=== PATIENT | female | born 1970 | race Hispanic/Latino ===

== ENCOUNTER 2022-06-14 21:02 | Emergency (ER) | payer MEDICAID, OTHER ==
[~2022-06-14] VITALS: Ht 162.6 cm; Wt 95.3 kg
[2022-06-14 21:06] VITALS: BP 113/42
[2022-06-14 21:55] LABS: APPEARANCE,URINE CLEAR (CLEAR); BILIRUBIN,URINE NEGATIVE (NEGATIVE); COLOR,URINE YELLOW (YELLOW); GLUCOSE, URINE (UA) NEGATIVE (NEGATIVE); KETONES,URINE NEGATIVE (NEGATIVE); LEUKOCYTE ESTERASE ,URINE TRACE (NEGATIVE); NITRATE,URINE NEGATIVE (NEGATIVE); OCCULT BLOOD,URINE LARGE (NEGATIVE); PROTEIN,URINE NEGATIVE (NEGATIVE)
[2022-06-14 21:59] LABS: BASOPHILS % (AUTO) 0.1 % (0.0-5.0); EOSINOPHILS % (AUTO) 1.5 % (0.0-8.0); HEMATOCRIT 35.4 % (36-48); LYMPHOCYTES % (AUTO) 19.8 % (21.0-51.0); MEAN CORPUSCULAR HEMOGLOBIN 29.8 pg (27.0-33.0); MEAN CORPUSCULAR HGB CONC 33.9 g/dL (32.0-36.0); MEAN CORPUSCULAR VOLUME 87.8 fL (79-99); MONOCYTES % (AUTO) 10.2 % (3.0-13.0); NEUTROPHILS % (AUTO) 67.5 % (40.0-77.0); PLATELET COUNT (AUTO) 204 K/uL (130-400); RED BLOOD CELL COUNT(AUTO) 4.03 MIL/uL (4.00-5.50); RED CELL DISTRIBUTION WIDTH 13.3 % (11.0-15.5); WHITE BLOOD COUNT (AUTO) 6.8 K/uL (4.8-10.8)
[2022-06-14 22:05] LABS: HCG,QUALITATIVE URINE NEGATIVE (NEGATIVE)
[2022-06-14 22:07] LABS: BACTERIA,URINE None Seen /HPF (None Seen); RBC,URINE 26-50 /HPF (0-1)
[2022-06-14 22:08] LABS: SQUAMOUS EPITHELIAL CELL,UR Rare /HPF (0-2)
[2022-06-14 22:09] LABS: CREATININE 0.8 mg/dL (0.5-1.5); POTASSIUM 3.3 mmol/L (3.5-5.1)
[2022-06-14 22:13] LABS: ALBUMIN 2.7 g/dL (3.5-5.0); TOTAL PROTEIN, SERUM 6.2 g/dL (6.0-8.3)
[2022-06-14] MEDS ORDERED: NAPR-1180 PO (22:27)
== END 2022-06-14 22:43 | disposition home or self-care (01) ==
LOC: EDH 21:02
DX: S39.011A Strain of muscle, fascia and tendon of abdomen, initial encounter (principal); R79.89 Other specified abnormal findings of blood chemistry; E66.9 Obesity, unspecified; Z68.36 Body mass index [BMI] 36.0-36.9, adult; X58.XXXA Exposure to other specified factors, initial encounter; Y93.89 Activity, other specified; Y92.89 Other specified places as the place of occurrence of the external cause; Y99.8 Other external cause status
CPT/HCPCS: 36415; 80053; 81001; 81025; 83690; 85025

== ENCOUNTER 2025-10-22 03:41 | Inpatient (IN) | payer SELFPAY ==
[~2025-10-22] VITALS: Ht 162.6 cm; Wt 76.3 kg
[~2025-10-22 03:41] MED LIST: NAPR-1180 PO
--- NOTE | 2025-10-22 03:55 | ERN ---
ED Note History of Present Illness Stated Complaint: AMS Chief Complaint: Altered Mental Status Time Seen by MD: 03:44 Dictation: The patient is a 55-year-old female brought to the ER by EMS, stated that patient son called stated the patient has diabetes mellitus status and has been noncompliant with the home medication. Patient has does have history of anxiety, depression she is on sertraline, prazosin, bupropion in Seroquel, as per reports patient has not taking medication for x4 days. Patient denies suicide ideation. She denies chest pain, fever, chills, no abdominal pain. Patient does stated that she stopped taking the medication because she does not want to have drugs in her body. Allergies: Coded Allergies: No Known Drug Allergies (Unverified Allergy, Unknown, 06/14/22) Home Meds Reported Medications Bupropion HCl (Bupropion Xl) 150 Mg Tab.er.24h, 300 MG PO DAILY, TAB 10/22/25 Prazosin HCl (Prazosin HCl) 1 Mg Capsule, 1 CAP PO HS for nightmares for 30 Days, #30 CAP 0 Refills 10/22/25 Quetiapine Fumarate (Seroquel) 100 Mg Tablet, 1 TAB PO HS for 30 Days, #30 TAB 0 Refills 10/22/25 Sertraline HCl (Sertraline HCl) 100 Mg Tablet, 2 TAB PO HS for 30 Days, #30 TAB 0 Refills 10/22/25 Discontinued Scripts Naproxen (Naprosyn) 500 Mg Tablet, 500 MG PO BIDPC, #60 TAB Prov:ROCÍO LIPSCOMB 06/14/22 Past Medical History Past Medical History: Anxiety, Depression Additional Past Medical Hx: Obesity Surgical History: None Family History: Negative Social History: Negative History: Not Applicable RN Note Reviewed/Agreed w/PFSH: Yes Review of System Dictation NEGATIVE EXCEPT PER HPI Constitutional: Negative for fever,chills, and weight loss Eyes: Negative for injury, pain,redness, and discharge ENT: Negative for injury,pain or swelling Cardiovascular: denies chest pain, palpitations, and edema Respiratory: Negative for shortness of breath, cough, and wheezing, Abdomen/GI: Negative for abdominal pain, nausea, vomiting, diarrhea, and constipation Back: Negative for injury and pain : Negative for injury, bleeding and discharge MS/Extremity: Negative for injury and deformity Skin: Negative for rash, and discoloration Neuro: Negative for headache, weakness, numbness, tingling, and seizure Psych: Negative for suicide ideation, homicidal ideation, and hallucinations. She does reports episodes of anxiety Initial Vital Sign VS Vital Signs Date Time Temp Pulse Resp B/P (MAP) Pulse Ox O2 Delivery O2 Flow Rate FiO2 10/22/25 03:43 98.1 86 16 127/64 99 Room Air 0 10/22/25 04:07 21 Physical Exam Dictation General: awake, alert, NAD Head/Face: Normocephalic, atraumatic Eyes: EOMI, vision at baseline ENT: oral cavity clear, TMs clear, no signs of infection Neck: Trachea midline, supple, no nuchal rigidity Cardiovascular: RRR, normal S1/S2, No MRGs, no JVD Respiratory: CTAB, no respiratory distress, No rales or wheezes Abdomen: Soft , no tender Skin: Warm, dry, normal turgor, no rash MS/Extremity: Pulses equal, no cyanosis, neurovascular intact, FROM Neuro: GCS 15, strength 5/5, CN 2-12 intact, normal cerebellar exam Psych: affect normal, Results (Laboratory/Radiology) Laboratory/Radiology Laboratory Tests Test 10/22/25 04:06 10/22/25 04:24 10/22/25 07:15 Urine Color LIGHT-YELLOW (YELLOW) Urine Appearance CLEAR (CLEAR) Urine pH 7.0 (5.0-8.0) Urine Specific [place] 1.005 (1.001-1.031) Urine Protein NEGATIVE mg/dL (NEGATIVE) Urine Glucose (UA) NEGATIVE mg/dL (NEGATIVE) Urine Ketones NEGATIVE mg/dL (NEGATIVE) Urine Occult Blood NEGATIVE (NEGATIVE) Urine Nitrate NEGATIVE (NEGATIVE) Urine Bilirubin NEGATIVE mg/dL (NEGATIVE) Urine Urobilinogen 0.2 mg/dL (0.2-1.0) Urine Leukocyte Esterase 25 Maddie/uL (NEGATIVE) H Urine RBC 0-1 /HPF (0-1) Urine WBC 2-5 /HPF (0-1) H Urine Squamous Epithelial Cells RARE /HPF (0-2) Urine Bacteria None /HPF (None Seen) Urine Opiates Screen NEGATIVE (NEGATIVE) Urine Barbiturates Screen NEGATIVE (NEGATIVE) Urine Phencyclidine Screen NEGATIVE (NEGATIVE) Urine Amphetamines Screen NEGATIVE (NEGATIVE) Urine Benzodiazepines Screen NEGATIVE (NEGATIVE) Urine Cocaine Screen NEGATIVE (NEGATIVE) Urine Marijuana (THC) Screen NEGATIVE (NEGATIVE) White Blood Count 2.5 K/uL (4.8-10.8) L 2.7 K/uL (4.8-10.8) L Red Blood Count 3.83 MIL/uL (4.00-5.50) L 3.67 MIL/uL (4.00-5.50) L Hemoglobin 11.1 g/dL (12.0-16.0) L 10.7 g/dL (12.0-16.0) L Hematocrit 33.3 % (36-48) L 31.9 % (36-48) L Mean Corpuscular Volume 86.9 fL (79-99) 86.9 fL (79-99) Mean Corpuscular Hemoglobin 29.0 pg (27.0-33.0) 29.2 pg (27.0-33.0) Mean Corpuscular Hemoglobin Concent 33.3 g/dL (32.0-36.0) 33.5 g/dL (32.0-36.0) Red Cell Distribution Width 13.1 % (11.0-15.5) 13.1 % (11.0-15.5) Platelet Count 47 K/uL (130-400) L 43 K/uL (130-400) L Mean Platelet Volume 10.9 fL (7.5-10.5) H 10.9 fL (7.5-10.5) H Immature Granulocyte % (Auto) 0.4 % (0-1) Neutrophils (%) (Auto) 31.3 % (40.0-77.0) L Lymphocytes (%) (Auto) 17.5 % (21.0-51.0) L Monocytes (%) (Auto) 50.4 % (3.0-13.0) H Eosinophils (%) (Auto) 0.4 % (0.0-8.0) Basophils (%) (Auto) 0.0 % (0.0-5.0) Neutrophils # (Auto) 0.8 K/uL (1.8-7.7) L Lymphocytes # (Auto) 0.4 K/uL (1.0-4.8) L Monocytes # (Auto) 1.3 K/uL (0.1-1.0) H Eosinophils # (Auto) 0.01 K/uL (0.00-0.70) Basophils # (Auto) 0.00 K/uL (0.00-0.20) Absolute Immature Granulocyte (auto 0.01 K/uL (0-1) Segmented Neutrophils % 30 % (40-70) L Lymphocytes % (Manual) 14 % (22-44) L Monocytes % (Manual) 50 % (2-9) H Nucleated Red Blood Cells 0.0 % (0.0-0.19) 0.0 % (0.0-0.19) Differential Comment MANUAL DIFFERENTIAL Reactive Lymphocytes 6 % (0-0) H White Cell Morphology Comment See comments Platelet Morphology Comment MARKED DECREASE Red Blood Cell Morphology NORMAL Sodium Level 137 mmol/L (136-145) Potassium Level 3.8 mmol/L (3.5-5.1) Chloride Level 101 mmol/L (101-111) Carbon Dioxide Level 27 mmol/L (21-32) Blood Urea Nitrogen 4 mg/dL (7-18) L Creatinine 0.7 mg/dL (0.5-1.0) Glomerular Filtration Rate Calc 103 mL/min (>90) Random Glucose 122 mg/dL (70-105) H Total Calcium 8.3 mg/dL (8.5-10.1) L Salicylates Level < 2.8 mg/dL (2.8-20.0) L Acetaminophen Level < 1 mcg/mL (10-30) L Serum Alcohol < 3 mg/dL (0-10) Total Bilirubin 0.6 mg/dL (0.2-1.0) Direct Bilirubin 0.1 mg/dL (0.0-0.3) Aspartate Amino Transf (AST/SGOT) 27 U/L (10-37) Alanine Aminotransferase (ALT/SGPT) 28 U/L (12-78) Alkaline Phosphatase 69 U/L (50-136) Ammonia < 10 umol/L (11-32) L Total Protein 6.5 g/dL (6.0-8.3) Albumin 3.4 g/dL (3.5-5.0) L Labs Reviewed?: Yes CT Scan Comment: REASON: Ams, thrombocytopenia ORDERING PHYSICIAN: DEMARCUS STARR MD PROCEDURE: HEAD WO - CT HEAD/BRAIN W/O CONTRAST EXAM: CT Head Without IV contrast. CLINICAL HISTORY: Altered mental status, thrombocytopenia TECHNIQUE: Axial computed tomography images of the head/brain without intravenous contrast. COMPARISON: None provided. FINDINGS: BRAIN: No evidence of acute hemorrhage. No mass lesion. No CT evidence for acute territorial infarct. No midline shift or extra-axial collections. Mild focal cerebral volume loss in the left frontal lobe, concerning for gliosis. VENTRICLES: No hydrocephalus. ORBITS: The orbits are unremarkable. SINUSES AND MASTOIDS: Mild right ethmoidal sinusitis. BONES: No fracture. Hyperostosis frontalis interna. SOFT TISSUES: Unremarkable. IMPRESSION: No acute intracranial abnormality. Recommend MRI brain for further evaluation if clinically warranted. /[place] DICTATED BY: MINDY AMADOR Jr., MD DATE: 10/22/251102 ELECTRONICALLY SIGNED BY: MINDY AMADOR Jr., MD DATE: 10/22/251102 ED Course ED Course Orders Procedure Category Date Status Time Cbc With Differential LAB 10/22/25 Complete 03:44 Basic Metabolic Panel LAB 10/22/25 Complete 03:44 Urinalysis Profile LAB 10/22/25 Complete 03:44 Drug Screen Urine LAB 10/22/25 Complete 03:44 Manual Differential LAB 10/22/25 Complete 04:24 Acetaminophen LAB 10/22/25 Complete 04:36 Salicylate LAB 10/22/25 Complete 04:36 Alcohol, Blood LAB 10/22/25 Complete 04:36 Ondansetron 4mg Inj PHA 10/22/25 Complete (Zofran 4mg Inj) 06:30 Cbc Without LAB 10/22/25 Complete Differential 07:09 Hepatic Function Panel LAB 10/22/25 Complete 07:09 Ammonia LAB 10/22/25 Complete 07:09 Ct Head/Brain W/O CT 10/22/25 Resulted Contrast 07:52 Edm Admit Bridge Order ADM 10/22/25 Transmitted 11:38 Current Medications Medications (Trade) Dose Ordered Sig/Michael Route PRN Reason Start Time Stop Time Status Last Admin Dose Admin Ondansetron HCl (zoFRAN 4MG INJ) 4 mg ONCE ONCE IVP 10/22/25 06:30 10/22/25 06:31 DC 10/22/25 06:45 Vital Signs Date Time Temp Pulse Resp B/P (MAP) Pulse Ox O2 Delivery O2 Flow Rate FiO2 10/22/25 10:26 98.8 79 17 142/63 100 Room Air* 0 10/22/25 08:50 98.8 76 16 149/70 100 Room Air* 0 10/22/25 06:45 84 18 156/71 98 Room Air* 0 10/22/25 05:37 72 18 142/69 98 Room Air* 0 10/22/25 04:07 98.4 77 18 157/68 98 Room Air* 0 10/22/25 03:43 98.1 86 16 127/64 99 Room Air 0 Medical Decision Making MDM The patient is a 55-year-old female brought to the ER by EMS, stated that patient son called stated the patient has diabetes mellitus status and has been noncompliant with the home medication. Patient has does have history of anx iety, depression she is on sertraline, prazosin, bupropion in Seroquel, as per reports patient has not taking medication for x4 days. Patient denies suicide ideation. She denies chest pain, fever, chills, no abdominal pain. Patient stated that she is not taking her medication because does not want troches inside of her body. -psychiatric disturbance -possible metabolic encephalopathy -medication withdrawal -possible UTI Ordered UA, CBC, BMP, alcohol level, salicylate level, acetaminophen level Results within normal limits, We contact psychiatric behavioral facility for further evaluation of the patient, stated the the who came to evaluate the patient's around 8:00 a.m., it is 1 hour and a half from now. 7:00 a.m.-assumed the care of the patient- This is a 55-year-old female who presented with a confusion and altered mental status according to the family members and not acting right. Apparently she has a known history of psychiatric disturbance and she was supposed to be on 4 medic ations scanner. She started reading her Bible and stated that she did not want any medications in her system and she will be saved. So she has not been on medications for the past 4 days. She denied any suicidal ideations, homicidal ideations. She was just staring at the rule smiling in congruently. Her affect seemed off to me. No history of any headache blurred vision facial droop motor weakness or seizure activity. No bleeding. She did report that she had ant bites on her feet and ankles Temperature 98 pulse 86 respirations 16 blood pressure 127/64 with a pulse oximetry of 99% on room air Labs reviewed CBC showed a white count of 2.5 hemoglobin 11 platelets 47. BNP 7 is with a normal limits. Glucose is 122. Serum and urine drug screen is negati ve urinalysis shows a very small amount of leuko esterase but no white cells to suggest any cystitis. Patient was signed out to me that she is awaiting behavioral health evaluation 8:00 a.m. When I reviewed the labs I was concerned about the severe thromb ocytopenia and hence I repeated the CBC which showed a platelet count of 43. Updated the behavioral health specialist that I have not medically cleared her yet in view of some of the findings and abnormal labs and that I would be pursuing additional workup on her. With the change in the mental status it is unclear if she is exhibiting some signs of psychosis or perhaps an intracranial event. CT scan of the head and brain was requested. 11:[address] scan of the head was finally done and it is negative for any acute intracranial event. No evidence of bleeding noted. In view of the mental status changes and thrombocytopenia, I recommended admission to the hospital for further evaluation-namely ITP, TTP or perhaps medication effect. Differential diagnosis-psychosis, dehydration, sepsis, electrolyte abnormalities, intracranial event, medication withdrawal 11:10 a.m. hospitalist paged for admission 11:40 a.m. patient accepted by Emmie Lemus, mid-level provider for the hospitalist group for admission and further management Problem List Problem List: (1) Metabolic encephalopathy (2) Psychiatric disturbance (3) Non compliance w medication regimen DX & DISP Disposition: Inpatient Decision to Admit Time: 11:00 Departure Impression: Primary Impression: Non compliance w medication regimen Additional Impressions: Psychiatric disturbance, Metabolic encephalopathy, Thrombocytopenia Condition: Stable Additional Instructions: Patient was informed of all the diagnostic labs and procedures conducted in the emergency room today and demonstrated understanding of the results. I personally reviewed and interpreted all the diagnostic exams performed in the ER today. The patient will be admitted to the hospital for further treatment and evaluation. Disposition-admit to facility Condition-stable/guarded Course-uncertain at this time Pain status-decreased Assessment-exam unchanged Admission Certification- I certify that the patients status is appropriate and is based on my best clinical judgment and the patient's condition as documented in the medical records Referrals: SELF,REFERRAL (PCP) ELADIA DESAI MD Oct 22, 2025 03:55 DEMARCUS STARR MD Oct 22, 2025 11:24
[2025-10-22] MEDS ORDERED: PRAZ1CAP5 PO (04:03)
[2025-10-22] MEDS ORDERED: QUET100T PO (04:03)
[2025-10-22] MEDS ORDERED: SERT-440 PO (04:03)
[2025-10-22] MEDS ORDERED: BUPR-49 PO (04:04)
[2025-10-22 04:34] LABS: IMMATURE GRANULOCYTE ABSOLUTE 0.01 K/uL (0-1); NUCLEATED RED BLOOD CELLS 0.0 % (0.0-0.19); PLATELET COUNT (AUTO) 47 K/uL (130-400); RED BLOOD CELL COUNT(AUTO) 3.83 MIL/uL (4.00-5.50); RED CELL DISTRIBUTION WIDTH 13.1 % (11.0-15.5); WHITE BLOOD COUNT (AUTO) 2.5 K/uL (4.8-10.8)
[2025-10-22 04:39] LABS: CREATININE 0.7 mg/dL (0.5-1.0); GLOMERULAR FILTR. RATE CALC 103.0 mL/min (>90); GLUCOSE,RANDOM 122.0 mg/dL (70-105); SODIUM SERUM 137.0 mmol/L (136-145); UREA NITROGEN, BLOOD 4.0 mg/dL (7-18)
[2025-10-22 04:39] LABS: APPEARANCE,URINE CLEAR (CLEAR); GLUCOSE, URINE (UA) NEGATIVE (NEGATIVE); LEUKOCYTE ESTERASE ,URINE 25 Leu/uL (NEGATIVE); NITRATE,URINE NEGATIVE (NEGATIVE); OCCULT BLOOD,URINE NEGATIVE (NEGATIVE)
[2025-10-22 04:41] LABS: ADD UA MICROSCOPIC YES
[2025-10-22 04:42] LABS: SQUAMOUS EPITHELIAL CELL,UR RARE /HPF (0-2)
--- NOTE | 2025-10-22 04:45 | NUR ---
Sharlene perales in EDM - 10/22/25 at 0637 by HAYLEY PER ED MD, PATIENT MEDICALLY CLEARED
[2025-10-22 04:46] LABS: AMPHET/METH SCREEN,URINE NEGATIVE (NEGATIVE); BARBITURATE SCREEN, URINE NEGATIVE (NEGATIVE); CANNABINOID SCREEN,URINE NEGATIVE (NEGATIVE); COCAINE SCREEN,URINE NEGATIVE (NEGATIVE)
[2025-10-22 05:13] LABS: LYMPHOCYTES % (MANUAL) 14 % (22-44); MAN.DIFF COMMENT-IMPRESSION MANUAL DIFFERENTIAL; MONOCYTES % (MANUAL) 50 % (2-9); REACTIVE LYMPHOCYTES 6 % (0-0); SEGMENTED NEUTROPHILS % 30 % (40-70)
[2025-10-22 05:14] LABS: PLATELET MORPHOLOGY COMMENT MARKED DECREASE
[2025-10-22 05:16] LABS: ALCOHOL, BLOOD < 3 mg/dL (0-10)
--- NOTE | 2025-10-22 05:45 | NUR ---
PER ED MD, PATIENT MEDICALLY CLEARED
--- NOTE | 2025-10-22 05:50 | NUR ---
SPOKE TO [place] [facility] ROLAND, STATED SHE WILL CONTACT TROPICAL SCREENER
--- NOTE | 2025-10-22 06:25 | NUR ---
SPOKE TO HUSSAIN FROM [facility], STATED SCREENER WILL BE DELAYED UNTIL ABOUT 8 AM. ED MD MADE AWARE.
[2025-10-22 07:23] LABS: NUCLEATED RED BLOOD CELLS 0.0 % (0.0-0.19); PLATELET COUNT (AUTO) 43.0 K/uL (130-400); RED BLOOD CELL COUNT(AUTO) 3.67 MIL/uL (4.00-5.50); RED CELL DISTRIBUTION WIDTH 13.1 % (11.0-15.5); WHITE BLOOD COUNT (AUTO) 2.7 K/uL (4.8-10.8)
[2025-10-22 07:44] LABS: ASPARTATE AMINOTRANSFERASE 27 U/L (10-37); TOTAL PROTEIN, SERUM 6.5 g/dL (6.0-8.3)
--- NOTE | 2025-10-22 10:04 | HMCIMG ---
EXAM: CT Head Without IV contrast. CLINICAL HISTORY: Altered mental status, thrombocytopenia TECHNIQUE: Axial computed tomography images of the head/brain without intravenous contrast. COMPARISON: None provided. FINDINGS: BRAIN: No evidence of acute hemorrhage. No mass lesion. No CT evidence for acute territorial infarct. No midline shift or extra-axial collections. Mild focal cerebral volume loss in the left frontal lobe, concerning for gliosis. VENTRICLES: No hydrocephalus. ORBITS: The orbits are unremarkable. SINUSES AND MASTOIDS: Mild right ethmoidal sinusitis. BONES: No fracture. Hyperostosis frontalis interna. SOFT TISSUES: Unremarkable. IMPRESSION: No acute intracranial abnormality. Recommend MRI brain for further evaluation if clinically warranted. /[place]
--- NOTE | 2025-10-22 12:38 | HP ---
[facility] HISTORY AND PHYSICAL Date of Service: Oct 22, 2025 Time of Service: 12:38 HISTORY OF PRESENT ILLNESS: [The patient is a 55-year-old female with a history of diabetes mellitus (noncompliant), anxiety, and depression, who presented to the ED for altered mental status. She has not taken her prescribed psychiatric medications (sertraline 200 mg nightly, quetiapine 100 mg nightly, prazosin 1 mg nightly, bupropion XL 300 mg nightly) for the past four days, reportedly due to a desire to avoid "drugs in her body." On my evaluation, the patient was awake but minimally interactive, kept her eyes closed, and repeatedly stated she was thirs ty and did not want to be bothered, expressing mandaen ideation ("wants the Holy Spirit to purge her"). She was initially being considered for psychiatric admission, but laboratory evaluation revealed pancytopenia with severe thrombocytopenia (WBC 2.52.7, Hgb 11.110.7, Hct 33.331.9, platelets 4743), raising concern for a primary hematologic process such as thrombotic thromboc ytopenic purpura (TTP). During her ED stay, she was intermittently uncooperative, at one point locking herself in the bathroom and requiring security assistance. She was subsequently referred to the hospitalist service for further evaluation and management of her cytopenias and altered mental status. ] REVIEW OF SYSTEMS CONSTITUTIONAL: Denies fevers, chills, or night sweats. No unintentional weight loss reported. NEUROLOGICAL: Denies headache, amaurosis fugax, motor weakness, sensory deficit, vertigo/spinning sensation, gait abnormalities, or tremors. ENT: No hearing loss, otalgia, otorrhea, rhinitis, rhinorrhea, hoarseness, or sore throat. CARDIOVASCULAR: Denies any exertional angina, dyspnea on exertion, orthopnea, paroxysmal nocturnal dyspnea, palpitations, life-threatening arrhythmias, claudication. PULMONARY: Denies any shortness of breath, cough, phlegm/sputum, hemoptysis, pleuritic chest pain. SLEEP: Denies morning headaches, daytime somnolence or napping. Denies difficulty falling asleep, staying asleep, waking from sleep. Denies knowledge of snoring. GASTROINTESTINAL: Denies any type of dysphagia to either liquids or solids. Denies nausea, vomiting, pyrosis, early satiety, abdominal pain, diarrhea, constipation, or changes in stool consistency or caliber. Denies coffee-ground emesis, hematemesis, hematochezia, or melanotic stools. GENITOURINARY: Denies frequency, urgency, nocturia, hematuria or incontinence (Storage/Irritative symptoms.) Low urinary stream, straining to void, urinary intermittency or hesitancy, splitting of the voiding stream, terminal dribbling. ENDOCRINOLOGIC: Denies polyuria, polydipsia, polyphagia or heat/cold intolerances. HEMATOLOGIC: Denies thrombophilia/previous clots, or coagulopathy/bleeding disorders. ONCOLOGIC: Denies personal history of malignancy. DERMATOLOGIC: Denies rashes or pruritus. PSYCHIATRIC: Denies any suicidal or homicidal ideation. Denies hallucinations. PAST MEDICAL HISTORY: [ Diabetes mellitus, anxiety, depression ] PAST SURGICAL HISTORY: [, patient will not answer my question ] PAST SOCIAL HISTORY: [ Patient lives with her son. Denies tobacco, alcohol illicit drug use ] FAMILY HISTORY: [Noncontributory ] Coded Allergies: No Known Drug Allergies (Unverified Allergy, Unknown, 06/14/22) PHYSICAL EXAM GENERAL APPEARANCE: Awake, eyes closed, minimally interactive, responds only to direct questioning, requests not to be bothered, expresses mandaen ideation NEUROLOGICAL: Cranial nerves II-XII grossly intact. Motor is 5/5 in bilateral upper and lower extremities proximal to distal. No sensory deficits. HEENT: Face is symmetric. Pupils are equal and reactive. Extraocular movements are intact. NECK: Supple. No JVD. No thyromegaly. No submental, submandibular, pre-/posta uricular, occipital or supraclavicular lymphadenopathy. CHEST: Normal chest expansion. No Telemetry. LUNGS: Absence of any rales, rhonchi or any wheezing. CARDIOVASCULAR: Regular. S1 and S2 normal. No appreciable rubs, murmurs or gallops. ABDOMEN: Soft, nontender, and nondistended. There is no rebound, voluntary guarding, or rigidity. : Deferred. No [place]. EXTREMITIES: Non-edematous and not cyanotic. No clubbing. Good capillary refill. SKIN: lower ext petechiae Psych: Flat affect, withdrawn, mandaen preoccupation, minimally responsive Vital Sign (Last 24 Hours) 10/22/25 10:26 Temp 98.8 Pulse 79 Resp 17 B/P (MAP) 142/63 Pulse Ox 100 O2 Delivery Room Air* O2 Flow Rate 0 FiO2 21 LABS: Laboratory: Test 10/22/25 07:15 10/22/25 04:24 10/22/25 04:06 Range/Units White Blood Count 2.7 L 4.8-10.8 K/uL Red Blood Count 3.67 L 4.00-5.50 MIL/uL Hemoglobin 10.7 L 12.0-16.0 g/dL Hematocrit 31.9 L 36-48 % Mean Corpuscular Volume 86.9 79-99 fL Mean Corpuscular Hemoglobin 29.2 27.0-33.0 pg Mean Corpuscular Hemoglobin Concent 33.5 32.0-36.0 g/dL Red Cell Distribution Width 13.1 11.0-15.5 % Platelet Count 43 L 130-400 K/uL Mean Platelet Volume 10.9 H 7.5-10.5 fL Nucleated Red Blood Cells 0.0 0.0-0.19 % Total Bilirubin 0.6 0.2-1.0 mg/dL Direct Bilirubin 0.1 0.0-0.3 mg/dL Aspartate Amino Transf (AST/SGOT) 27 10-37 U/L Alanine Aminotransferase (ALT/SGPT) 28 12-78 U/L Alkaline Phosphatase 69 50-136 U/L Ammonia < 10 L 11-32 umol/L Total Protein 6.5 6.0-8.3 g/dL Albumin 3.4 L 3.5-5.0 g/dL Immature Granulocyte % (Auto) 0.4 0-1 % Neutrophils (%) (Auto) 31.3 L 40.0-77.0 % Lymphocytes (%) (Auto) 17.5 L 21.0-51.0 % Monocytes (%) (Auto) 50.4 H 3.0-13.0 % Eosinophils (%) (Auto) 0.4 0.0-8.0 % Basophils (%) (Auto) 0.0 0.0-5.0 % Neutrophils # (Auto) 0.8 L 1.8-7.7 K/uL Lymphocytes # (Auto) 0.4 L 1.0-4.8 K/uL Monocytes # (Auto) 1.3 H 0.1-1.0 K/uL Eosinophils # (Auto) 0.01 0.00-0.70 K/uL Basophils # (Auto) 0.00 0.00-0.20 K/uL Absolute Immature Granulocyte (auto 0.01 0-1 K/uL Segmented Neutrophils % 30 L 40-70 % Lymphocytes % (Manual) 14 L 22-44 % Monocytes % (Manual) 50 H 2-9 % Differential Comment MANUAL DIFFERENTIAL Reactive Lymphocytes 6 H 0-0 % White Cell Morphology Comment See comments Platelet Morphology Comment MARKED DECREASE Red Blood Cell Morphology NORMAL Sodium Level 137 136-145 mmol/L Potassium Level 3.8 3.5-5.1 mmol/L Chloride Level 101 101-111 mmol/L Carbon Dioxide Level 27 21-32 mmol/L Blood Urea Nitrogen 4 L 7-18 mg/dL Creatinine 0.7 0.5-1.0 mg/dL Glomerular Filtration Rate Calc 103 >90 mL/min Random Glucose 122 H 70-105 mg/dL Total Calcium 8.3 L 8.5-10.1 mg/dL Salicylates Level < 2.8 L 2.8-20.0 mg/dL Acetaminophen Level < 1 L 10-30 mcg/mL Serum Alcohol < 3 0-10 mg/dL Urine Color LIGHT-YELLOW YELLOW Urine Appearance CLEAR CLEAR Urine pH 7.0 5.0-8.0 Urine Specific [place] 1.005 1.001-1.031 Urine Protein NEGATIVE NEGATIVE mg/dL Urine Glucose (UA) NEGATIVE NEGATIVE mg/dL Urine Ketones NEGATIVE NEGATIVE mg/dL Urine Occult Blood NEGATIVE NEGATIVE Urine Nitrate NEGATIVE NEGATIVE Urine Bilirubin NEGATIVE NEGATIVE mg/dL Urine Urobilinogen 0.2 0.2-1.0 mg/dL Urine Leukocyte Esterase 25 H NEGATIVE Maddie/uL Urine RBC 0-1 0-1 /HPF Urine WBC 2-5 H 0-1 /HPF Urine Squamous Epithelial Cells RARE 0-2 /HPF Urine Bacteria None None Seen /HPF Urine Opiates Screen NEGATIVE NEGATIVE Urine Barbiturates Screen NEGATIVE NEGATIVE Urine Phencyclidine Screen NEGATIVE NEGATIVE Urine Amphetamines Screen NEGATIVE NEGATIVE Urine Benzodiazepines Screen NEGATIVE NEGATIVE Urine Cocaine Screen NEGATIVE NEGATIVE Urine Marijuana (THC) Screen NEGATIVE NEGATIVE CBC: Pancytopenia WBC 2.5 ---> 2.7 (low) Hgb 11.1 ---> 10.7 (low) Hct 33.3 ---> 31.9 (low) Plt 47 ---> 43 (critically low) ANC 0.8 (severe neutropenia) Marked monocytosis, lymphopenia, 6% reactive lymphocytes Chemistry: Na 137, K 3.8, Cl 101, CO2 27 (all WNL) BUN 4 (low), Cr 0.7 (WNL), GFR 103 Glucose 122 (mildly elevated) Ca 8.3 (low, likely due to hypoalbuminemia) Albumin 3.4 (low) LFTs, bilirubin, ammonia WNL UA: Trace leukocyte esterase, 25 WBC/HPF, otherwise unremarkable Tox screen: Negative CT Head: No acute intracranial abnormality; mild left frontal volume loss (gliosis), mild right ethmoid sinusitis DIAGNOSTICS / RADIOLOGY: [[facility] [address] [place] [address] IMAGING REPORT Signed PATIENT: JEFF SHELL MR#: [id number] : 1970 SEX: F AGE: 55 LOCATION: [facility] ORDER 2 STATUS: [facility] REPORT#: [id number] SERVICE 1 REASON: Ams, thrombocytopenia ORDERING PHYSICIAN: DEMARCUS STARR MD PROCEDURE: HEAD WO - CT HEAD/BRAIN W/O CONTRAST EXAM: CT Head Without IV contrast. CLINICAL HISTORY: Altered mental status, thrombocytopenia TECHNIQUE: Axial computed tomography images of the head/brain without intravenous contrast. COMPARISON: None provided. FINDINGS: BRAIN: No evidence of acute hemorrhage. No mass lesion. No CT evidence for acute territorial infarct. No midline shift or extra-axial collections. Mild focal cerebral volume loss in the left frontal lobe, concerning for gliosis. VENTRICLES: No hydrocephalus. ORBITS: The orbits are unremarkable. SINUSES AND MASTOIDS: Mild right ethmoidal sinusitis. BONES: No fracture. Hyperostosis frontalis interna. SOFT TISSUES: Unremarkable. IMPRESSION: No acute intracranial abnormality. Recommend MRI brain for further evaluation if clinically warranted. /[place] DICTATED BY: MINDY AMADOR Jr., MD DATE: 10/22/251102 ELECTRONICALLY SIGNED BY: MINDY AMADOR Jr., MD DATE: 10/22/251102 ] ASSESSMENT: [1. Pancytopenia with severe thrombocytopenia and neutropenia - WBC 2.52.7, Plt 4743, Hgb 11.110.7, ANC 0.8 - Differential: Thrombotic thrombocytopenic purpura (TTP), drug-induced marrow suppression, viral infection (e.g., EBV/CMV), autoimmune process, early myelodysplasia, less likely acute leukemia (no blasts reported) - No evidence of active bleeding or hemolysis on current labs; no schistocytes reported (peripheral smear pending) 2. Altered mental status (AMS) - Multifactorial: psychiatric disturbance, possible metabolic encephalopathy, medication withdrawal, possible underlying organic process (marrow suppression, infection, TTP) - No evidence of acute intracranial event on CT 3. Medication noncompliance/withdrawal - Abrupt cessation of multiple psychotropics (sertraline, quetiapine, bupropion, prazosin) - Risk for withdrawal syndromes, rebound psychiatric symptoms 4. Psychiatric disturbance - Underlying mood disorder, possible psychosis, mandaen preoccupation, withdrawal, flat affect 5. Mild metabolic derangements - Mild hypoalbuminemia, mild hypocalcemia (likely secondary to low albumin), mild hyperglycemia 6. Mild UTI vs. asymptomatic bacteriuria - UA with trace leukocyte esterase, 25 WBC/HPF, no nitrites, no symptoms ] PLAN: [ 1. Pancytopenia/Thrombocytopenia - Hematology consult STAT - Peripheral blood smear (if not already sent): Evaluate for schistocytes, blasts, dysplasia - Hemolysis labs: LDH, haptoglobin, reticulocyte count, indirect/direct bilirubin, D-dimer, fibrinogen, PT/PTT - Infectious workup: EBV, CMV, HIV, hepatitis panel, parvovirus B19 - Autoimmune workup: JOCE, dsDNA, complement, consider antiphospholipid panel - Monitor for bleeding: Strict fall precautions, no rectal temps, avoid IM injections, monitor for petechiae, hematuria, GI bleeding - Transfuse platelets only if active bleeding or <10K, or if invasive procedures needed (per hematology guidance) - Daily CBC to trend 2. Altered Mental Status - Monitor neuro status closely - Repeat neuro exam q24h - MRI brain if mental status does not improve or if new focal deficits develop (per CT recommendation) - Correct metabolic derangements as indicated - Monitor for infection/sepsis given neutropenia 3. Psychiatric/Behavioral - Psychiatry consult for assessment and management of medication withdrawal, psychosis, and safety - Monitor for withdrawal symptoms (serotonin discontinuation, antipsychotic withdrawal, bupropion) - Reinitiate home psych meds as appropriate, in collaboration with psychiatry and after medical clearance 4. Infection Prophylaxis - Reverse isolation/neutropenic precautions if ANC <500 or as per hospital protocol - Monitor for fever/infection; low threshold for empiric antibiotics if febrile or septic 5. Supportive Care - IV fluids as needed for hydration - Monitor electrolytes, glucose - DVT prophylaxis: Hold if platelets <50K - Fall precautions 6. Disposition - Admit to hospitalist service for further workup and management - Close monitoring in step-down or telemetry if mental status worsens or if bleeding risk increases Full Code ADVANCED CARE PLANNING 1. Which of the following were discussed? Hospice Care - Yes / No Therapeutic options - Yes / No Advance Directives - Yes / No Other discussions - 2. Discussed with who? Patient 3. Voluntary nature of this service was explained to the patient? Yes / No 4. Amount of time spent - _20 mins 5. Reviewed by Physician? (if this service was performed by NPP) Yes / No Addendum: Tele-psychiatry evaluation was completed with Dr. Mercedes. Recommendation is to hold sertraline, bupropion (Wellbutrin), and prazosin at this time. Per current assessment, patient may receive quetiapine (Seroquel) 100 mg now and continue 100 mg PO at bedtime. ATTESTATION BY PHYSICIAN I have seen and examined the patient. I reviewed the documentation, medical decision making, and treatment plan as noted by the mid-level provider above. I agree with the findings and plan of care. MANNIE MCARTHUR MD, [facility] Oct 22, 2025 12:38
[2025-10-22 12:56] LABS: NUCLEATED RED BLOOD CELLS 0.0 % (0.0-0.19); PLATELET COUNT (AUTO) 44 K/uL (130-400); RED BLOOD CELL COUNT(AUTO) 3.81 MIL/uL (4.00-5.50); RED CELL DISTRIBUTION WIDTH 13.1 % (11.0-15.5); WHITE BLOOD COUNT (AUTO) 2.7 K/uL (4.8-10.8)
[2025-10-22 13:12] LABS: ASPARTATE AMINOTRANSFERASE 27.0 U/L (10-37); TOTAL PROTEIN, SERUM 6.6 g/dL (6.0-8.3)
[2025-10-22 13:14] LABS: INR 1.06 (0.85-1.15)
[2025-10-22 13:40] LABS: IMMATURE GRANULOCYTE ABSOLUTE 0.01 K/uL (0-1)
--- NOTE | 2025-10-22 13:49 | TELE.CONS ---
Tele-psychiatry Consultation Patient Name: Keysha Coffey Patient : 1970 Patient Hospital: [facility] Chief Complaint: History of Present Illness Keysha Coffey is a 55 years old, female consulted at October 22, 2025 at [facility]. patient seen today. [place] she is hearing voices to harm herself. States she has been stressed and has not slept in the past week. Endorses racing thoughts. Evaluation limited due to patient responding to internal stimuli. Physical Examination Vitals: as per chart General: No acute distress Mental Status Examination Mental Status: female, hospital attire Eye Contact: blank stare Speech: delayed +psychomotor retardation Mood is ok and affect is pflat Thought process is superficially organized Thought content - endorses SI, AH Memory and cognition - impaired Insight and judgment. - limited/limited Diagnoses: Bipolar I Disorder with psychotic features hx of depression, ptsd, anxiety Plan: [place] seen via [employer]. As per history - has stopped home medications for the past 4 days - as a result has not slept and decompensated - now endorsing suicidal ideation and auditory hallucinations to harm herself. 1. stop home psychiatric medications - zoloft, wellbutrin, ?ativan, prazosin 2. Give Seroquel 100mg PO - give now for mood stabilization / psychosis 3. have haldol 5mg po/im and benadryl 25mg po/im q6hr prn for agitation , get recent ekg and monitor qtc 4. may need psych admission as she is endorsing suicidal ideation, ?command hallucinations, presently manic 5. consider sitter as patient is endorsing suicidal ideation Discussed with*:Emmie Lemus - [phone] ICD-10*: F31.7 Bipolar disorder, current episode unspecified Time spent preparing for consult:??? 20min Time spent on audio / video:??? 15 min Time spend post consult:??? 20 min Zip Code of Telephysician: --- [phone] Electronically Signed By: Trevin Mercedes MD Keysha Coffey was informed that the consultation would be provided using video communication and was informed that the he/she could elect to receive in-person medical services instead at any time and such a decision would not limit the patient's access to medical services. Keysha Coffey consented to the telehealth consultation. At the time of the telehealth consultation, Trevin Mercedes MD is located in [place] and the patient is located [facility]. Electronically Signed At: Oct 22, 2025 1:49 PM [employer] By Trevin Mercedes.
[2025-10-22] MEDS ORDERED: PHARMACY COMMUNICATION MISC SCH (14:00)
[2025-10-22] MEDS: 0.9%NACL 1000ML 1,000 ML IV SCH (15:02)
--- NOTE | 2025-10-22 16:03 | NUR ---
B[facility] [place]ACIO (SON) [phone].
[2025-10-22 16:57] LABS: SARS-CoV-2, RNA, NAAT NEGATIVE SARS CoV-2 (NEGATIVE)
[2025-10-22 17:02] LABS: INFLUENZA TYPE A Negative For Type A (NEGATIVE); INFLUENZA TYPE B Negative For Type B (NEGATIVE)
[2025-10-22 17:08] LABS: RAPID GROUP A STREP negative (NEGATIVE)
--- NOTE | 2025-10-22 17:26 | NUR ---
PATIENT WAS REMOVING HOSPITAL GOWN, PATIENT WAS EASILY DIRECTED. PATIENT WAS LOOKING AT HER HAND, WAS ASKED IF SHE WAS SEEING SOMETHING IN HER HAND, PT STATE " I AM SEEING THE BARCODE TO ERNESTO SECRET. PATIENT IS ORIENTED TO NAME, DATE OF , AND LOCATION.
[2025-10-22 23:15] VITALS: BP 158/74; PULSE 87; RESP 20; TEMP 98
--- NOTE | 2025-10-22 23:20 | NUR ---
ARRIVAL TO UNIT PATIENT IS ALERT AND ORIENTATED TO SELF AND PLACE. NO PAIN OR SIGNS OF DISTRESS. SITTER AT BEDSIDE. BED AT LOWEST POSITION.
[2025-10-23] VITALS (8 sets, daily range): BP systolic 109–160; BP diastolic 48–98; PULSE 79–127; RESP 16–20; TEMP 97.5–98.6; O2SAT 97
[2025-10-23 05:23] LABS: NUCLEATED RED BLOOD CELLS 0.0 % (0.0-0.19); PLATELET COUNT (AUTO) 40.0 K/uL (130-400); RED BLOOD CELL COUNT(AUTO) 4.01 MIL/uL (4.00-5.50); RED CELL DISTRIBUTION WIDTH 13.2 % (11.0-15.5); WHITE BLOOD COUNT (AUTO) 2.9 K/uL (4.8-10.8)
[2025-10-23 05:39] LABS: ASPARTATE AMINOTRANSFERASE 23.0 U/L (10-37); CREATININE 0.7 mg/dL (0.5-1.0); GLOMERULAR FILTR. RATE CALC 103.0 mL/min (>90); GLUCOSE,RANDOM 124.0 mg/dL (70-105); SODIUM SERUM 144.0 mmol/L (136-145); TOTAL PROTEIN, SERUM 6.5 g/dL (6.0-8.3); UREA NITROGEN, BLOOD 4.0 mg/dL (7-18)
[2025-10-23] MEDS: ENOXAPARIN SODIUM 40 MG/0.4 ML SYRINGE SQ SCH (08:29)
--- NOTE | 2025-10-23 10:08 | PN ---
[facility] PROGRESS NOTE Date of Service: Oct 23, 2025 Time of Service: 10:08 SUBJECTIVE: HISTORY OF PRESENT ILLNESS: The patient is a 55-year-old female with a history of diabetes mellitus (noncompliant), anxiety, and depression, who presented to the ED for altered mental status. She has not taken her prescribed psychiatric medications (sertraline 200 mg nightly, quetiapine 100 mg nightly, prazosin 1 mg nightly, bupropion XL 300 mg nightly) for the past four days, reportedly due to a desire to avoid "drugs in her body." On my evaluation, the patient was awake but minimally interactive, kept her eyes closed, and repeatedly stated she was thirsty and did not want to be bothered, expressing temple ideation ("wants the Holy Spirit to purge her"). She was initially being considered for psychiatric admission, but laboratory evaluation revealed pancytopenia with severe thrombocytopenia (WBC 2.52.7, Hgb 11.110.7, Hct 33.331.9, platelets 4743), raising concern for a primary hematologic process such as thrombotic thrombocytopenic purpura (TTP). During her ED stay, she was intermittently uncooperative, at one point locking herself in the bathroom and requiring security assistance. She was subsequently referred to the hospitalist service for further evaluation and management of her cytopenias and altered mental status. 10/23/2025: Patient was seen and evaluated bedside this morning. she is awake, alert, agitated and confused, currently on 1 on 1 sitter. Morning labs showed white count 2.9, H&H 11.7, 35respectively, platelet count 40, PT 11.2, INR 1.06. As per tele psych recommendations her psychiatry medications are on hold except for Seroquel 100 mg for mood stabilization/psychosis, Haldol5 mg p.o. q.6 PRN for agitation. Patient might need psych admission as she is endorsing suicidal ideation, command hallucination, presently manic. Hematology was consulted for f urther evaluation of pancytopenia. REVIEW OF SYSTEMS CONSTITUTIONAL: Denies fevers, chills, or night sweats. No unintentional weight loss reported. NEUROLOGICAL: Denies headache, amaurosis fugax, motor weakness, sensory deficit, vertigo/spinning sensation, gait abnormalities, or tremors. ENT: No hearing loss, otalgia, otorrhea, rhinitis, rhinorrhea, hoarseness, or sore throat. CARDIOVASCULAR: Denies any exertional angina, dyspnea on exertion, orthopnea, paroxysmal nocturnal dyspnea, palpitations, life-threatening arrhythmias, claudication. PULMONARY: Denies any shortness of breath, cough, phlegm/sputum, hemoptysis, pleuritic chest pain. SLEEP: Denies morning headaches, daytime somnolence or napping. Denies diff iculty falling asleep, staying asleep, waking from sleep. Denies knowledge of snoring. GASTROINTESTINAL: Denies any type of dysphagia to either liquids or solids. Denies nausea, vomiting, pyrosis, early satiety, abdominal pain, diarrhea, constipation, or changes in stool consistency or caliber. Denies coffee-ground emesis, hematemesis, hematochezia, or melanotic stools. GENITOURINARY: Denies frequency, urgency, nocturia, hematuria or incontinence (Storage/Irritative symptoms.) Low urinary stream, straining to void, urinary intermittency or hesitancy, splitting of the voiding stream, terminal dribbling. ENDOCRINOLOGIC: Denies polyuria, polydipsia, polyphagia or heat/cold in tolerances. HEMATOLOGIC: Denies thrombophilia/previous clots, or coagulopathy/bleeding disorders. ONCOLOGIC: Denies personal history of malignancy. DERMATOLOGIC: Denies rashes or pruritus. PSYCHIATRIC: Denies any suicidal or homicidal ideation. Denies hallucinations. PHYSICAL EXAM GENERAL APPEARANCE: Awake, eyes closed, minimally interactive, responds only to direct questioning, requests not to be bothered, expresses temple ideation NEUROLOGICAL: Cranial nerves II-XII grossly intact. Motor is 5/5 in bilateral upper and lower extremities proximal to distal. No sensory deficits. HEENT: Face is symmetric. Pupils are equal and reactive. Extraocular movements are intact. NECK: Supple. No JVD. No thyromegaly. No submental, submandibular, pre- /postauricular, occipital or supraclavicular lymphadenopathy. CHEST: Normal chest expansion. No Telemetry. LUNGS: Absence of any rales, rhonchi or any wheezing. CARDIOVASCULAR: Regular. S1 and S2 normal. No appreciable rubs, murmurs or gallops. ABDOMEN: Soft, nontender, and nondistended. There is no rebound, voluntary guarding, or rigidity. : Deferred. No [place]. EXTREMITIES: Non-edematous and not cyanotic. No clubbing. Good capillary refill. SKIN: lower ext petechiae Psych: Flat affect, withdrawn, temple preoccupation, minimally responsive Vital Signs (last 8hr) Date Time Temp Pulse Resp B/P (MAP) Pulse Ox O2 Delivery O2 Flow Rate FiO2 10/23/25 03:32 97.9 79 16 109/54 99 Room Air LABS: Laboratory: Test 10/23/25 05:02 10/22/25 16:21 10/22/25 12:48 10/22/25 07:15 Range/Units White Blood Count 2.9 L 4.8-10.8 K/uL Red Blood Count 4.01 4.00-5.50 MIL/uL Hemoglobin 11.7 L 12.0-16.0 g/dL Hematocrit 35.0 L 36-48 % Mean Corpuscular Volume 87.3 79-99 fL Mean Corpuscular Hemoglobin 29.2 27.0-33.0 pg Mean Corpuscular Hemoglobin Concent 33.4 32.0-36.0 g/dL Red Cell Distribution Width 13.2 11.0-15.5 % Platelet Count 40 L 130-400 K/uL Mean Platelet Volume 10.4 7.5-10.5 fL Nucleated Red Blood Cells 0.0 0.0-0.19 % Sodium Level 144 136-145 mmol/L Potassium Level 3.7 3.5-5.1 mmol/L Chloride Level 108 101-111 mmol/L Carbon Dioxide Level 27 21-32 mmol/L Blood Urea Nitrogen 4 L 7-18 mg/dL Creatinine 0.7 0.5-1.0 mg/dL Glomerular Filtration Rate Calc 103 >90 mL/min Random Glucose 124 H 70-105 mg/dL Total Calcium 8.4 L 8.5-10.1 mg/dL Magnesium Level 2.10 1.80-2.40 mg/dL Total Bilirubin 0.5 0.2-1.0 mg/dL Aspartate Amino Transf (AST/SGOT) 23 10-37 U/L Alanine Aminotransferase (ALT/SGPT) 23 # 12-78 U/L Alkaline Phosphatase 69 50-136 U/L Total Protein 6.5 6.0-8.3 g/dL Albumin 3.4 L 3.5-5.0 g/dL Influenza Type A Antigen Negative For Type A NEGATIVE Influenza Type B Antigen Negative For Type B NEGATIVE SARS-CoV-2, RNA, NAAT NEGATIVE SARS CoV-2 NEGATIVE Group A Streptococcus Rapid negative NEGATIVE Immature Granulocyte % (Auto) 0.4 0-1 % Neutrophils (%) (Auto) 30.8 L 40.0-77.0 % Lymphocytes (%) (Auto) 14.9 L 21.0-51.0 % Monocytes (%) (Auto) 53.1 H 3.0-13.0 % Eosinophils (%) (Auto) 0.4 0.0-8.0 % Basophils (%) (Auto) 0.4 0.0-5.0 % Neutrophils # (Auto) 0.8 L 1.8-7.7 K/uL Lymphocytes # (Auto) 0.4 L 1.0-4.8 K/uL Monocytes # (Auto) 1.4 H 0.1-1.0 K/uL Eosinophils # (Auto) 0.01 0.00-0.70 K/uL Basophils # (Auto) 0.01 0.00-0.20 K/uL Absolute Immature Granulocyte (auto 0.01 0-1 K/uL Prothrombin Time 11.2 9.6-11.6 SEC Prothromb Time International Ratio 1.06 0.85-1.15 D-Dimer Quantitative (PE/DVT) 375 0-500 ng/mL Direct Bilirubin 0.1 0.0-0.3 mg/dL Anti-Nuclear Antibody Screen Negative Negative NAFISA-1 Antibody SS-A/Ro Antibody SS-B/La Antibody Sm (Stringer) IgG Antibody, Quant SOIL ENGINEER IgG Antibody, Quantitative Scl-70 (Scleroderma) Antibody Anti-Double Strand DNA Antibody Anti-Centromere IgG Antibody Gwendolyn-Grubbs Virus IgG Ab Titer 139.0 H 0.0-17.9 U/mL Gwendolyn-Grubbs Virus Capsid Ag IgG Ab 230.0 H 0.0-17.9 U/mL Gwendolyn-Grubbs Virus Capsid Ag IgM Ab <36.0 0.0-35.9 U/mL Gwendolyn-Grubbs Virus Interpretation Comment . Ammonia < 10 L 11-32 umol/L Test 10/22/25 04:24 10/22/25 04:06 Range/Units Segmented Neutrophils % 30 L 40-70 % Lymphocytes % (Manual) 14 L 22-44 % Monocytes % (Manual) 50 H 2-9 % Reactive Lymphocytes 6 H 0-0 % Salicylates Level < 2.8 L 2.8-20.0 mg/dL Acetaminophen Level < 1 L 10-30 mcg/mL Serum Alcohol < 3 0-10 mg/dL Urine Color LIGHT-YELLOW YELLOW Urine Appearance CLEAR CLEAR Urine pH 7.0 5.0-8.0 Urine Specific Mackay 1.005 1.001-1.031 Urine Protein NEGATIVE NEGATIVE mg/dL Urine Glucose (UA) NEGATIVE NEGATIVE mg/dL Urine Ketones NEGATIVE NEGATIVE mg/dL Urine Occult Blood NEGATIVE NEGATIVE Urine Nitrate NEGATIVE NEGATIVE Urine Bilirubin NEGATIVE NEGATIVE mg/dL Urine Urobilinogen 0.2 0.2-1.0 mg/dL Urine Leukocyte Esterase 25 H NEGATIVE Maddie/uL Urine RBC 0-1 0-1 /HPF Urine WBC 2-5 H 0-1 /HPF Urine Squamous Epithelial Cells RARE 0-2 /HPF Urine Bacteria None None Seen /HPF Urine Opiates Screen NEGATIVE NEGATIVE Urine Barbiturates Screen NEGATIVE NEGATIVE Urine Phencyclidine Screen NEGATIVE NEGATIVE Urine Amphetamines Screen NEGATIVE NEGATIVE Urine Benzodiazepines Screen NEGATIVE NEGATIVE Urine Cocaine Screen NEGATIVE NEGATIVE Urine Marijuana (THC) Screen NEGATIVE NEGATIVE Current Medications Medications (Trade) Dose Ordered Sig/Michael Route PRN Reason Start Time Stop Time Status Last Admin Dose Admin Acetaminophen (TYLenol 325MG TAB) 650 mg Q4H PRN PO TEMPERATURE GREATER THAN 101.5 10/22/25 12:30 11/21/25 12:29 Acetaminophen (TYLenol 325MG TAB) 650 mg Q6H PRN PO MILD PAIN (1-3) 10/22/25 12:30 11/21/25 12:29 Ceftriaxone Sodium (ROCEphine 1G INJ) 1 gm Q24H IVPB 10/22/25 12:30 11/01/25 12:29 10/22/25 14:59 1 GM Enoxaparin Sodium (Lovenox) 40 mg DAILY SQ 10/23/25 09:00 11/22/25 08:59 10/23/25 08:29 40 MG Hydralazine HCl (APRESOLine 20MG INJ) 10 mg Q6H PRN IV ADMINISTER FOR SBP > 160 10/22/25 17:00 11/21/25 16:59 Ondansetron HCl (zoFRAN 4MG INJ) 4 mg Q6H PRN IVP NAUSEA/VOMITING 10/22/25 12:30 11/21/25 12:29 10/22/25 16:14 4 MG Pharmacy Profile Note (Pharmacy Communication) ONCE MISC 10/22/25 14:00 10/22/25 19:24 DC Quetiapine Fumarate (SEROquel 100 mg TAB) 100 mg HS PO 10/23/25 21:00 11/22/25 20:59 Sodium Chloride 1,000 ml @ 75 mls/hr [id number] IV 10/22/25 12:30 11/21/25 12:29 10/22/25 15:02 75 MLS/HR DIAGNOSTICS / RADIOLOGY: [ ] [place] [address] [place] [id number] IMAGING REPORT Signed PATIENT: JEFF SHELL MR#: [id number] : 1970 SEX: F AGE: 55 LOCATION: [facility] ORDER 2 STATUS: REG ER REPORT#: [id number] SERVICE 1 REASON: Ams, thrombocytopenia ORDERING PHYSICIAN: DEMARCUS STARR MD PROCEDURE: HEAD WO - CT HEAD/BRAIN W/O CONTRAST EXAM: CT Head Without IV contrast. CLINICAL HISTORY: Altered mental status, thrombocytopenia TECHNIQUE: Axial computed tomography images of the head/brain without intravenous contrast. COMPARISON: None provided. FINDINGS: BRAIN: No evidence of acute hemorrhage. No mass lesion. No CT evidence for acute territorial infarct. No midline shift or extra-axial collections. Mild focal cerebral volume loss in the left frontal lobe, concerning for gliosis. VENTRICLES: No hydrocephalus. ORBITS: The orbits are unremarkable. SINUSES AND MASTOIDS: Mild right ethmoidal sinusitis. BONES: No fracture. Hyperostosis frontalis interna. SOFT TISSUES: Unremarkable. IMPRESSION: No acute intracranial abnormality. Recommend MRI brain for further evaluation if clinically warranted. /[place] DICTATED BY: MINDY AMADOR Jr., MD DATE: 10/22/251102 ELECTRONICALLY SIGNED BY: MINDY AMADOR Jr., MD DATE: 12/19/25 1103 ASSESSMENT: Pancytopenia with severe thrombocytopenia and neutropenia Altered mental status (AMS) Medication noncompliance/withdrawal Psychiatric disturbance Mild metabolic derangements Mild UTI vs. asymptomatic bacteriuria PLAN: Pancytopenia with severe thrombocytopenia and neutropenia - WBC 2.52.7, Plt 4743, Hgb 11.110.7, ANC 0.8 - Hematology consult STAT - Peripheral blood smear (if not already sent): Evaluate for schistocytes, blasts, dysplasia - Hemolysis labs: LDH, haptoglobin, reticulocyte count, indirect/direct bilirubin, D-dimer, fibrinogen, PT/PTT - Infectious workup: EBV, CMV, HIV, hepatitis panel, parvovirus B19 - Autoimmune workup: JOCE, dsDNA, complement, consider antiphospholipid panel - Monitor for bleeding: Strict fall precautions, no rectal temps, avoid IM injections, monitor for petechiae, hematuria, GI bleeding - Transfuse platelets only if active bleeding or <10K, or if invasive procedures needed (per hematology guidance) - Daily CBC to trend Altered Mental Status - Monitor neuro status closely - Repeat neuro exam q24h - MRI brain if mental status does not improve or if new focal deficits develop (per CT recommendation) - Correct metabolic derangements as indicated - Monitor for infection/sepsis given neutropenia Psychiatric/Behavioral - Psychiatry consult for assessment and management of medication withdrawal, psychosis, and safety - Monitor for withdrawal symptoms (serotonin discontinuation, antipsychotic withdrawal, bupropion) - Reinitiate home psych meds as appropriate, in collaboration with psychiatry and after medical clearance Infection Prophylaxis - Reverse isolation/neutropenic precautions if ANC <500 or as per hospital protocol - Monitor for fever/infection; low threshold for empiric antibiotics if febrile or septic Supportive Care - IV fluids as needed for hydration - Monitor electrolytes, glucose - DVT prophylaxis with SCDs - Fall precautions ATTESTATION BY PHYSICIAN I have seen and examined the patient. I reviewed the documentation, medical decision making, and treatment plan as noted by the resident physician above. I agree with the findings and plan of care. ELMIRA AHUJA MD, ADIL SHAH QUADRI MD Oct 23, 2025 10:08
[2025-10-23 11:09] LABS: LACTATE DEHYDROGENASE 217.0 U/L (81-234)
[2025-10-23 14:43] LABS: HEPATITIS A IGM ANTIBODY Non-Reactive (Nonreactive); HEPATITIS B CORE IGM ANTIBODY Non-Reactive (Negative)
[2025-10-24] VITALS (7 sets, daily range): BP systolic 116–153; BP diastolic 66–92; PULSE 82–96; RESP 16–20; TEMP 98.1–98.7; O2SAT 98
[2025-10-24 05:05] LABS: IMMATURE GRANULOCYTE ABSOLUTE 0.00 K/uL (0-1); NUCLEATED RED BLOOD CELLS 0.0 % (0.0-0.19); PLATELET COUNT (AUTO) 45 K/uL (130-400); RED BLOOD CELL COUNT(AUTO) 3.64 MIL/uL (4.00-5.50); RED CELL DISTRIBUTION WIDTH 13.6 % (11.0-15.5); WHITE BLOOD COUNT (AUTO) 3.1 K/uL (4.8-10.8)
[2025-10-24 05:20] LABS: ASPARTATE AMINOTRANSFERASE 19.0 U/L (10-37); CREATININE 0.7 mg/dL (0.5-1.0); GLOMERULAR FILTR. RATE CALC 103.0 mL/min (>90); GLUCOSE,RANDOM 106.0 mg/dL (70-105); SODIUM SERUM 141.0 mmol/L (136-145); TOTAL PROTEIN, SERUM 6.3 g/dL (6.0-8.3); UREA NITROGEN, BLOOD 10.0 mg/dL (7-18)
--- NOTE | 2025-10-24 11:32 | PN ---
[facility] PROGRESS NOTE Date of Service: Oct 24, 2025 Time of Service: 11:17 SUBJECTIVE: HISTORY OF PRESENT ILLNESS: The patient is a 55-year-old female with a history of diabetes mellitus (noncompliant), anxiety, and depression, who presented to the ED for altered mental status. She has not taken her prescribed psychiatric medications (sertraline 200 mg nightly, quetiapine 100 mg nightly, prazosin 1 mg nightly, bupropion XL 300 mg nightly) for the past four days, reportedly due to a desire to avoid "drugs in her body." On my evaluation, the patient was awake but minimally interactive, kept her eyes closed, and repeatedly stated she was thirsty and did not want to be bothered, expressing amish ideation ("wants the Holy Spirit to purge her"). She was initially being considered for psychiatric admission, but laboratory evaluation revealed pancytopenia with severe thrombocytopenia (WBC 2.52.7, Hgb 11.110.7, Hct 33.331.9, platelets 4743), raising concern for a primary hematologic process such as thrombotic thrombocytopenic purpura (TTP). During her ED stay, she was intermittently uncooperative, at one point locking herself in the bathroom and requiring security assistance. She was subsequently referred to the hospitalist service for further evaluation and management of her cytopenias and altered mental status. 10/23/2025: Patient was seen and evaluated bedside this morning. she is awake, alert, agitated and confused, currently on 1 on 1 sitter. Morning labs showed white count 2.9, H&H 11.7, 35respectively, platelet count 40, PT 11.2, INR 1.06. As per tele psych recommendations her psychiatry medications are on hold except for Seroquel 100 mg for mood stabilization/psychosis, Haldol5 mg p.o. q.6 PRN for agitation. Patient might need psych admission as she is endorsing suicidal ideation, command hallucination, presently manic. Hematology was consulted for f urther evaluation of pancytopenia. 10/24/2025: Patient was evaluated bedside this morning. Patient has been agitated and looks confused. However she is more cooperative today. She has been hallucinating and is on one-to-one observation. Labs remarkable for WBC 3.1, hemoglobin 10.7, platelets 45, potassium 3.4. Hematology has been consulted for pancytopenia. She has been agitated and benefitted hallucinating. She do have a suicidal ideation and still remains confused. Telepsych recommended to continue Seroquel 100 mg HS and keep Haldol 5 mg q.6 PRN along with [id number] mg. Patient needs inpatient psych admission after medically stable. Rest of the plan as discussed below. REVIEW OF SYSTEMS CONSTITUTIONAL: Denies fevers, chills, or night sweats. No unintentional weight loss reported. NEUROLOGICAL: Denies headache, amaurosis fugax, motor weakness, sensory deficit, vertigo/spinning sensation, gait abnormalities, or tremors. ENT: No hearing loss, otalgia, otorrhea, rhinitis, rhinorrhea, hoarseness, or sore throat. CARDIOVASCULAR: Denies any exertional angina, dyspnea on exertion, orthopnea, paroxysmal nocturnal dyspnea, palpitations, life-threatening arrhythmias, claudication. PULMONARY: Denies any shortness of breath, cough, phlegm/sputum, hemoptysis, pleuritic chest pain. SLEEP: Denies morning headaches, daytime somnolence or napping. Denies difficulty falling asleep, staying asleep, waking from sleep. Denies knowledge of snoring. GASTROINTESTINAL: Denies any type of dysphagia to either liquids or solids. Denies nausea, vomiting, pyrosis, early satiety, abdominal pain, diarrhea, constipation, or changes in stool consistency or caliber. Denies coffee-ground emesis, hematemesis, hematochezia, or melanotic stools. GENITOURINARY: Denies frequency, urgency, nocturia, hematuria or incontinence (Storage/Irritative symptoms.) Low urinary stream, straining to void, urinary intermittency or hesitancy, splitting of the voiding stream, terminal dribbling. ENDOCRINOLOGIC: Denies polyuria, polydipsia, polyphagia or heat/cold intolerances. HEMATOLOGIC: Denies thrombophilia/previous clots, or coagulopathy/bleeding disorders. ONCOLOGIC: Denies personal history of malignancy. DERMATOLOGIC: Denies rashes or pruritus. PSYCHIATRIC: Denies any suicidal or homicidal ideation. Denies hallucinations. PHYSICAL EXAM GENERAL APPEARANCE: Awake, eyes closed, minimally interactive, responds only to direct questioning, requests not to be bothered, expresses amish ideation NEUROLOGICAL: Cranial nerves II-XII grossly intact. Motor is 5/5 in bilateral upper and lower extremities proximal to distal. No sensory deficits. HEENT: Face is symmetric. Pupils are equal and reactive. Extraocular movements are intact. NECK: Supple. No JVD. No thyromegaly. No submental, submandibular, pre- /postauricular, occipital or supraclavicular lymphadenopathy. CHEST: Normal chest expansion. No Telemetry. LUNGS: Absence of any rales, rhonchi or any wheezing. CARDIOVASCULAR: Regular. S1 and S2 normal. No appreciable rubs, murmurs or gallops. ABDOMEN: Soft, nontender, and nondistended. There is no rebound, voluntary guarding, or rigidity. : Deferred. No [place]. EXTREMITIES: Non-edematous and not cyanotic. No clubbing. Good capillary refill. SKIN: lower ext petechiae Psych: Flat affect, withdrawn, amish preoccupation, minimally responsive Vital Signs (last 8hr) Date Time Temp Pulse Resp B/P (MAP) Pulse Ox O2 Delivery O2 Flow Rate FiO2 10/24/25 11:04 98.6 82 18 141/67 99 Room Air 10/24/25 07:29 98.8 85 16 116/66 98 Room Air 10/24/25 04:00 98.4 96 20 150/71 98 Room Air LABS: Laboratory: Test 10/24/25 04:43 10/23/25 05:02 10/22/25 16:21 10/22/25 12:48 Range/Units White Blood Count 3.1 L 4.8-10.8 K/uL Red Blood Count 3.64 L 4.00-5.50 MIL/uL Hemoglobin 10.7 L 12.0-16.0 g/dL Hematocrit 31.9 L 36-48 % Mean Corpuscular Volume 87.6 79-99 fL Mean Corpuscular Hemoglobin 29.4 27.0-33.0 pg Mean Corpuscular Hemoglobin Concent 33.5 32.0-36.0 g/dL Red Cell Distribution Width 13.6 11.0-15.5 % Platelet Count 45 L 130-400 K/uL Mean Platelet Volume 11.6 H 7.5-10.5 fL Immature Granulocyte % (Auto) 0.0 0-1 % Neutrophils (%) (Auto) 23.9 L 40.0-77.0 % Lymphocytes (%) (Auto) 22.8 21.0-51.0 % Monocytes (%) (Auto) 52.7 H 3.0-13.0 % Eosinophils (%) (Auto) 0.3 0.0-8.0 % Basophils (%) (Auto) 0.3 0.0-5.0 % Neutrophils # (Auto) 0.7 L 1.8-7.7 K/uL Lymphocytes # (Auto) 0.7 L 1.0-4.8 K/uL Monocytes # (Auto) 1.6 H 0.1-1.0 K/uL Eosinophils # (Auto) 0.01 0.00-0.70 K/uL Basophils # (Auto) 0.01 0.00-0.20 K/uL Absolute Immature Granulocyte (auto 0.00 0-1 K/uL Nucleated Red Blood Cells 0.0 0.0-0.19 % Sodium Level 141 136-145 mmol/L Potassium Level 3.4 L 3.5-5.1 mmol/L Chloride Level 109 101-111 mmol/L Carbon Dioxide Level 23 21-32 mmol/L Blood Urea Nitrogen 10 7-18 mg/dL Creatinine 0.7 0.5-1.0 mg/dL Glomerular Filtration Rate Calc 103 >90 mL/min Random Glucose 106 H 70-105 mg/dL Total Calcium 8.1 L 8.5-10.1 mg/dL Total Bilirubin 0.6 0.2-1.0 mg/dL Aspartate Amino Transf (AST/SGOT) 19 10-37 U/L Alanine Aminotransferase (ALT/SGPT) 18 # 12-78 U/L Alkaline Phosphatase 59 50-136 U/L Total Protein 6.3 6.0-8.3 g/dL Albumin 3.2 L 3.5-5.0 g/dL Magnesium Level 2.10 1.80-2.40 mg/dL Lactate Dehydrogenase 217 81-234 U/L Vitamin B12 Level 967 193-986 pg/mL Folic Acid (LAB) 19.30 2-20 ng/mL Influenza Type A Antigen Negative For Type A NEGATIVE Influenza Type B Antigen Negative For Type B NEGATIVE SARS-CoV-2, RNA, NAAT NEGATIVE SARS CoV-2 NEGATIVE Group A Streptococcus Rapid negative NEGATIVE Prothrombin Time 11.2 9.6-11.6 SEC Prothromb Time International Ratio 1.06 0.85-1.15 D-Dimer Quantitative (PE/DVT) 375 0-500 ng/mL Direct Bilirubin 0.1 0.0-0.3 mg/dL Anti-Nuclear Antibody Screen Negative Negative Anti-Nuclear Antibody Interpret NAFISA-1 Antibody SS-A/Ro Antibody SS-B/La Antibody Sm (Stringer) IgG Antibody, Quant ANESTHESIOLOGIST ATTENDING IgG Antibody, Quantitative Scl-70 (Scleroderma) Antibody Anti-Double Strand DNA Antibody Anti-Centromere IgG Antibody Gwendolyn-Grubbs Virus IgG Ab Titer 139.0 H 0.0-17.9 U/mL Gwendolyn-Grubbs Virus Capsid Ag IgG Ab 230.0 H 0.0-17.9 U/mL Gwendolyn-Grubbs Virus Capsid Ag IgM Ab <36.0 0.0-35.9 U/mL Gwendolyn-Grubbs Virus Interpretation Comment . Hepatitis A IgM Antibody Non-Reactive Nonreactive Hepatitis B Surface Antigen. Non-Reactive Nonreactive Hepatitis B Core IgM Antibody Non-Reactive Negative Hepatitis C Antibody Non-Reactive Nonreactive Current Medications Medications (Trade) Dose Ordered Sig/Michael Route PRN Reason Start Time Stop Time Status Last Admin Dose Admin Acetaminophen (TYLenol 325MG TAB) 650 mg Q4H PRN PO TEMPERATURE GREATER THAN 101.5 10/22/25 12:30 11/21/25 12:29 10/24/25 01:16 650 MG Acetaminophen (TYLenol 325MG TAB) 650 mg Q6H PRN PO MILD PAIN (1-3) 10/22/25 12:30 11/21/25 12:29 Ceftriaxone Sodium (ROCEphine 1G INJ) 1 gm Q24H IVPB 10/22/25 12:30 10/24/25 07:18 DC 10/22/25 14:59 1 GM Ceftriaxone Sodium (ROCEphine 1G INJ) 1 gm Q24H IVPB 10/24/25 09:00 11/03/25 08:59 10/24/25 08:13 1 GM Enoxaparin Sodium (Lovenox) 40 mg DAILY SQ 10/23/25 09:00 10/23/25 14:56 DC 10/23/25 08:29 40 MG Hydralazine HCl (APRESOLine 20MG INJ) 10 mg Q6H PRN IV ADMINISTER FOR SBP > 160 10/22/25 17:00 11/21/25 16:59 Ondansetron HCl (zoFRAN 4MG INJ) 4 mg Q6H PRN IVP NAUSEA/VOMITING 10/22/25 12:30 11/21/25 12:29 10/22/25 16:14 4 MG Pharmacy Profile Note (Pharmacy Communication) ONCE MISC 10/22/25 14:00 10/22/25 19:24 DC Quetiapine Fumarate (SEROquel 100 mg TAB) 100 mg HS PO 10/23/25 21:00 11/22/25 20:59 10/23/25 20:33 100 MG Sodium Chloride 1,000 ml @ 75 mls/hr [id number] IV 10/22/25 12:30 11/21/25 12:29 10/23/25 20:00 75 MLS/HR DIAGNOSTICS / RADIOLOGY: [ ] ASSESSMENT: Pancytopenia with severe thrombocytopenia and neutropenia Altered mental status (AMS) Medication noncompliance/withdrawal Bipolar1 disorder with psychotic features History of depression, PTSD, anxiety Mild metabolic derangements Mild UTI vs. asymptomatic bacteriuria PLAN: Pancytopenia with severe thrombocytopenia and neutropenia - WBC 2.52.7, Plt 4743, Hgb 11.110.7, ANC 0.8 - Hematology consult STAT - Peripheral blood smear (if not already sent): Evaluate for schistocytes, blasts, dysplasia - Hemolysis labs: LDH, haptoglobin, reticulocyte count, indirect/direct bilirubin, D-dimer, fibrinogen, PT/PTT - Infectious workup: EBV, CMV, HIV, hepatitis panel, parvovirus B19 - Autoimmune workup: JOCE, dsDNA, complement, consider antiphospholipid panel - Monitor for bleeding: Strict fall precautions, no rectal temps, avoid IM injections, monitor for petechiae, hematuria, GI bleeding - Transfuse platelets only if active bleeding or <10K, or if invasive procedures needed (per hematology guidance) - Daily CBC to trend Altered Mental Status - Monitor neuro status closely - Repeat neuro exam q24h - MRI brain if mental status does not improve or if new focal deficits develop (per CT recommendation) - Correct metabolic derangements as indicated - Monitor for infection/sepsis given neutropenia Bipolar1 disorder with psychotic features History of depression, PTSD, anxiety - psychiatry recommended to hold Zoloft, Wellbutrin, Ativan. Start her on Seroquel 100 mg daily and Haldol 5 mg per oral/IM and [id number] mg per oral/IM q.6 hour PRN for agitation. - Monitor for withdrawal symptoms (serotonin discontinuation, antipsychotic withdrawal, bupropion) - Reinitiate home psych meds as appropriate, in collaboration with psychiatry and after medical clearance Infection Prophylaxis - Reverse isolation/neutropenic precautions if ANC <500 or as per hospital protocol - Monitor for fever/infection; low threshold for empiric antibiotics if febrile or septic Supportive Care - IV fluids as needed for hydration - Monitor electrolytes, glucose - DVT prophylaxis with SCDs - Fall precautions ATTESTATION BY PHYSICIAN I have seen and examined the patient. I reviewed the documentation, medical decision making, and treatment plan as noted by the resident physician above. I agree with the findings and plan of care. ELMIRA AHUJA MD, SUNIL MD Oct 24, 2025 11:32
--- NOTE | 2025-10-24 11:59 | NUR ---
DCP: INITIAL ASSESSMENT SW spoke with patient's daughter, Shilpa. Patient lives with son, Saurav Mancia. She has no home services or DME. As per daughter, patient is very independent and drives. She is a patient of [facility]. Patient has no PCP. She uses pharmacy at [facility]. Daughter states that patient became confused after not taking her psychiatric medications consistently for a few days. DCP is for home once patient is stable. Patient has no insurance or benefits. SW left daughter community resources for post hospitalization follow up. Patient's daughter was also provided with Good RX card for prescriptions and educated on [facility] $4 medication program and [facility] $5 medication program. Patient is being assisted by [facility] for financial matters.
--- NOTE | 2025-10-24 12:04 | NUR ---
EMERGENCY CONTACTS Shilpa Dorantesjas (daughter) [phone] Saurav Mancia (son) [phone] Patient's correct address: [address] [place] [address] in [place], [place]. Demographic sheet sent for corrections.
--- NOTE | 2025-10-24 20:00 | NUR ---
IV PATIENT FORCIBLY REMOVED IV. PRESSURE HELD TO CONTROL BLEEDING FROM IV SITE. BLEEDING STOPPED AND PATIENT ASSESSED. NO NEW CURRENT SIGNS OF DISTRESS.
[2025-10-25] VITALS (7 sets, daily range): BP systolic 126–159; BP diastolic 68–85; PULSE 80–95; RESP 18–22; TEMP 97.6–98.6; O2SAT 97–99
[2025-10-25 05:06] LABS: IMMATURE GRANULOCYTE ABSOLUTE 0.02 K/uL (0-1); NUCLEATED RED BLOOD CELLS 0.0 % (0.0-0.19); PLATELET COUNT (AUTO) 37 K/uL (130-400); RED BLOOD CELL COUNT(AUTO) 3.73 MIL/uL (4.00-5.50); RED CELL DISTRIBUTION WIDTH 13.3 % (11.0-15.5); WHITE BLOOD COUNT (AUTO) 3.9 K/uL (4.8-10.8)
[2025-10-25 05:25] LABS: CREATININE 0.7 mg/dL (0.5-1.0); GLOMERULAR FILTR. RATE CALC 103.0 mL/min (>90); GLUCOSE,RANDOM 102.0 mg/dL (70-105); SODIUM SERUM 142.0 mmol/L (136-145); UREA NITROGEN, BLOOD 10.0 mg/dL (7-18)
[2025-10-25] MEDS ORDERED: PoTASSium chl 10% ELIXIR 20MEQ 20 MEQ/15 ML UDCUP PO PRN (08:30)
[2025-10-25] MEDS: PoTASSium chloRIDE 20MEQ ER 20 MEQ ERTAB PO PRN (08:56)
--- NOTE | 2025-10-25 10:35 | PN ---
[facility] PROGRESS NOTE Date of Service: Oct 25, 2025 Time of Service: 10:35 SUBJECTIVE: HISTORY OF PRESENT ILLNESS: The patient is a 55-year-old female with a history of diabetes mellitus (noncompliant), anxiety, and depression, who presented to the ED for altered mental status. She has not taken her prescribed psychiatric medications (sertraline 200 mg nightly, quetiapine 100 mg nightly, prazosin 1 mg nightly, bupropion XL 300 mg nightly) for the past four days, reportedly due to a desire to avoid "drugs in her body." On my evaluation, the patient was awake but minimally interactive, kept her eyes closed, and repeatedly stated she was thirsty and did not want to be bothered, expressing judaism ideation ("wants the Holy Spirit to purge her"). She was initially being considered for psychiatric admission, but laboratory evaluation revealed pancytopenia with severe thrombocytopenia (WBC 2.52.7, Hgb 11.110.7, Hct 33.331.9, platelets 4743), raising concern for a primary hematologic process such as thrombotic thrombocytopenic purpura (TTP). During her ED stay, she was intermittently uncooperative, at one point locking herself in the bathroom and requiring security assistance. She was subsequently referred to the hospitalist service for further evaluation and management of her cytopenias and altered mental status. 10/23/2025: Patient was seen and evaluated bedside this morning. she is awake, alert, agitated and confused, currently on 1 on 1 sitter. Morning labs showed white count 2.9, H&H 11.7, 35respectively, platelet count 40, PT 11.2, INR 1.06. As per tele psych recommendations her psychiatry medications are on hold except for Seroquel 100 mg for mood stabilization/psychosis, Haldol5 mg p.o. q.6 PRN for agitation. Patient might need psych admission as she is endorsing suicidal ideation, command hallucination, presently manic. Hematology was consulted for f urther evaluation of pancytopenia. 10/24/2025: Patient was evaluated bedside this morning. Patient has been agitated and looks confused. However she is more cooperative today. She has been hallucinating and is on one-to-one observation. Labs remarkable for WBC 3.1, hemoglobin 10.7, platelets 45, potassium 3.4. Hematology has been consulted for pancytopenia. She has been agitated and benefitted hallucinating. She do have a suicidal ideation and still remains confused. Telepsych recommended to continue Seroquel 100 mg HS and keep Haldol 5 mg q.6 PRN along with [id number] mg. Patient needs inpatient psych admission after medically stable. Rest of the plan as discussed below. 10/25/2025: Patient was seen and evaluated bedside this morning, no family at bedside. Patient has been agitated, confused and paranoid. Patient has been hallucinating and is on one-to-one observation. Morning Labs white count 3.9, H&H 10.9, 32, platelets 37. Hematology has been consulted for pancytopenia. We will get ultrasound right upper quadrant to check for liver cirrhosis. She do have a suicidal ideation and still remains confused. Telepsych recommended to continue Seroquel 100 mg HS and keep Haldol 5 mg q.6 PRN along with [id number] mg. Patient needs inpatient psych admission after medically stable. Rest of the plan as discussed below. REVIEW OF SYSTEMS CONSTITUTIONAL: Denies fevers, chills, or night sweats. No unintentional weight loss reported. NEUROLOGICAL: Denies headache, amaurosis fugax, motor weakness, sensory deficit, vertigo/spinning sensation, gait abnormalities, or tremors. ENT: No hearing loss, otalgia, otorrhea, rhinitis, rhinorrhea, hoarseness, or sore throat. CARDIOVASCULAR: Denies any exertional angina, dyspnea on exertion, orthopnea, paroxysmal nocturnal dyspnea, palpitations, life-threatening arrhythmias, claudication. PULMONARY: Denies any shortness of breath, cough, phlegm/sputum, hemoptysis, pleuritic chest pain. SLEEP: Denies morning headaches, daytime somnolence or napping. Denies difficulty falling asleep, staying asleep, waking from sleep. Denies knowledge of snoring. GASTROINTESTINAL: Denies any type of dysphagia to either liquids or solids. Denies nausea, vomiting, pyrosis, early satiety, abdominal pain, diarrhea, constipation, or changes in stool consistency or caliber. Denies coffee-ground emesis, hematemesis, hematochezia, or melanotic stools. GENITOURINARY: Denies frequency, urgency, nocturia, hematuria or incontinence (Storage/Irritative symptoms.) Low urinary stream, straining to void, urinary intermittency or hesitancy, splitting of the voiding stream, terminal dribbling. ENDOCRINOLOGIC: Denies polyuria, polydipsia, polyphagia or heat/cold intolerances. HEMATOLOGIC: Denies thrombophilia/previous clots, or coagulopathy/bleeding disorders. ONCOLOGIC: Denies personal history of malignancy. DERMATOLOGIC: Denies rashes or pruritus. PSYCHIATRIC: Denies any suicidal or homicidal ideation. Denies hallucinations. PHYSICAL EXAM GENERAL APPEARANCE: Awake, eyes closed, minimally interactive, responds only to direct questioning, requests not to be bothered, expresses judaism ideation NEUROLOGICAL: Cranial nerves II-XII grossly intact. Motor is 5/5 in bilateral upper and lower extremities proximal to distal. No sensory deficits. HEENT: Face is symmetric. Pupils are equal and reactive. Extraocular movements are intact. NECK: Supple. No JVD. No thyromegaly. No submental, submandibular, pre- /postauricular, occipital or supraclavicular lymphadenopathy. CHEST: Normal chest expansion. No Telemetry. LUNGS: Absence of any rales, rhonchi or any wheezing. CARDIOVASCULAR: Regular. S1 and S2 normal. No appreciable rubs, murmurs or gallops. ABDOMEN: Soft, nontender, and nondistended. There is no rebound, voluntary guarding, or rigidity. : Deferred. No Clayton. EXTREMITIES: Non-edematous and not cyanotic. No clubbing. Good capillary refill. SKIN: lower ext petechiae Psych: Flat affect, withdrawn, judaism preoccupation, minimally responsive Vital Signs (last 8hr) Date Time Temp Pulse Resp B/P (MAP) Pulse Ox O2 Delivery O2 Flow Rate FiO2 10/25/25 07:09 95 18 159/85 99 Room Air 10/25/25 03:45 98.1 91 18 127/84 99 Room Air LABS: Laboratory: Test 10/25/25 05:00 10/24/25 04:43 10/23/25 11:07 Range/Units White Blood Count 3.9 L 4.8-10.8 K/uL Red Blood Count 3.73 L 4.00-5.50 MIL/uL Hemoglobin 10.9 L 12.0-16.0 g/dL Hematocrit 32.0 L 36-48 % Mean Corpuscular Volume 85.8 79-99 fL Mean Corpuscular Hemoglobin 29.2 27.0-33.0 pg Mean Corpuscular Hemoglobin Concent 34.1 32.0-36.0 g/dL Red Cell Distribution Width 13.3 11.0-15.5 % Platelet Count 37 L 130-400 K/uL Mean Platelet Volume 10.5 7.5-10.5 fL Immature Granulocyte % (Auto) 0.5 0-1 % Neutrophils (%) (Auto) 26.4 L 40.0-77.0 % Lymphocytes (%) (Auto) 29.5 21.0-51.0 % Monocytes (%) (Auto) 43.3 H 3.0-13.0 % Eosinophils (%) (Auto) 0.3 0.0-8.0 % Basophils (%) (Auto) 0.0 0.0-5.0 % Neutrophils # (Auto) 1.0 L 1.8-7.7 K/uL Lymphocytes # (Auto) 1.2 1.0-4.8 K/uL Monocytes # (Auto) 1.7 H 0.1-1.0 K/uL Eosinophils # (Auto) 0.01 0.00-0.70 K/uL Basophils # (Auto) 0.00 0.00-0.20 K/uL Absolute Immature Granulocyte (auto 0.02 0-1 K/uL Nucleated Red Blood Cells 0.0 0.0-0.19 % Sodium Level 142 136-145 mmol/L Potassium Level 3.2 L 3.5-5.1 mmol/L Chloride Level 107 101-111 mmol/L Carbon Dioxide Level 21 21-32 mmol/L Blood Urea Nitrogen 10 7-18 mg/dL Creatinine 0.7 0.5-1.0 mg/dL Glomerular Filtration Rate Calc 103 >90 mL/min Random Glucose 102 70-105 mg/dL Total Calcium 8.4 L 8.5-10.1 mg/dL Total Bilirubin 0.6 0.2-1.0 mg/dL Aspartate Amino Transf (AST/SGOT) 19 10-37 U/L Alanine Aminotransferase (ALT/SGPT) 18 # 12-78 U/L Alkaline Phosphatase 59 50-136 U/L Total Protein 6.3 6.0-8.3 g/dL Albumin 3.2 L 3.5-5.0 g/dL Haptoglobin 92 33-346 mg/dL Current Medications Medications (Trade) Dose Ordered Sig/Michael Route PRN Reason Start Time Stop Time Status Last Admin Dose Admin Acetaminophen (TYLenol 325MG TAB) 650 mg Q4H PRN PO TEMPERATURE GREATER THAN 101.5 10/22/25 12:30 11/21/25 12:29 10/24/25 01:16 650 MG Acetaminophen (TYLenol 325MG TAB) 650 mg Q6H PRN PO MILD PAIN (1-3) 10/22/25 12:30 11/21/25 12:29 Ceftriaxone Sodium (ROCEphine 1G INJ) 1 gm Q24H IVPB 10/22/25 12:30 10/24/25 07:18 DC 10/22/25 14:59 1 GM Ceftriaxone Sodium (ROCEphine 1G INJ) 1 gm Q24H IVPB 10/24/25 09:00 11/03/25 08:59 10/25/25 08:56 1 GM Diphenhydramine HCl (BENAdryl CAP) 25 mg Q6H PRN PO AGITATION 10/25/25 08:30 11/24/25 08:29 10/25/25 08:56 25 MG Enoxaparin Sodium (Lovenox) 40 mg DAILY SQ 10/23/25 09:00 10/23/25 14:56 DC 10/23/25 08:29 40 MG Haloperidol (Haldol) 5 mg Q6H PRN PO ANXIETY/AGITATION 10/25/25 08:30 11/24/25 08:29 Hydralazine HCl (APRESOLine 20MG INJ) 10 mg Q6H PRN IV ADMINISTER FOR SBP > 160 10/22/25 17:00 11/21/25 16:59 Ondansetron HCl (zoFRAN 4MG INJ) 4 mg Q6H PRN IVP NAUSEA/VOMITING 10/22/25 12:30 11/21/25 12:29 10/22/25 16:14 4 MG Pharmacy Profile Note (Pharmacy Communication) ONCE MISC 10/22/25 14:00 10/22/25 19:24 DC Potassium Chloride 100 ml @ 100 mls/hr AD PRN IV POTASSIUM PROTOCOL 10/25/25 08:30 11/24/25 08:29 Potassium Chloride (K-Dur/Klor-Con 20meq) 20 meq AD PRN PO POTASSIUM PROTOCOL 10/25/25 08:30 11/24/25 08:29 10/25/25 08:56 20 MEQ Potassium Chloride (KCl 10% Elixir 20meq/15ml) 20 meq AD PRN PO POTASSIUM PROTOCOL 10/25/25 08:30 11/24/25 08:29 Quetiapine Fumarate (SEROquel 100 mg TAB) 100 mg HS PO 10/23/25 21:00 11/22/25 20:59 10/24/25 20:51 100 MG Sodium Chloride 1,000 ml @ 75 mls/hr [id number] IV 10/22/25 12:30 11/21/25 12:29 10/24/25 20:51 75 MLS/HR DIAGNOSTICS / RADIOLOGY: [ ] ASSESSMENT: Pancytopenia with severe thrombocytopenia and neutropenia Altered mental status (AMS) Medication noncompliance/withdrawal Bipolar1 disorder with psychotic features History of depression, PTSD, anxiety Mild metabolic derangements Mild UTI vs. asymptomatic bacteriuria PLAN: Pancytopenia with severe thrombocytopenia and neutropenia - WBC 2.52.7, Plt 4743, Hgb 11.110.7, ANC 0.8 - Hematology consult STAT - Peripheral blood smear (if not already sent): Evaluate for schistocytes, blasts, dysplasia - Hemolysis labs: LDH, haptoglobin, reticulocyte count, indirect/direct bilirubin, D-dimer, fibrinogen, PT/PTT - Infectious workup: EBV, CMV, HIV, hepatitis panel, parvovirus B19 - Autoimmune workup: JOCE, dsDNA, complement, consider antiphospholipid panel - Monitor for bleeding: Strict fall precautions, no rectal temps, avoid IM injections, monitor for petechiae, hematuria, GI bleeding - Transfuse platelets only if active bleeding or <10K, or if invasive procedures needed (per hematology guidance) - Daily CBC to trend Altered Mental Status - Monitor neuro status closely - Repeat neuro exam q24h - MRI brain if mental status does not improve or if new focal deficits develop (per CT recommendation) - Correct metabolic derangements as indicated - Monitor for infection/sepsis given neutropenia Bipolar1 disorder with psychotic features History of depression, PTSD, anxiety - psychiatry recommended to hold Zoloft, Wellbutrin, Ativan. Start her on Seroquel 100 mg daily and Haldol 5 mg per oral/IM and [id number] mg per oral/IM q.6 hour PRN for agitation. - Monitor for withdrawal symptoms (serotonin discontinuation, antipsychotic withdrawal, bupropion) - Reinitiate home psych meds as appropriate, in collaboration with psychiatry and after medical clearance Infection Prophylaxis - Reverse isolation/neutropenic precautions if ANC <500 or as per hospital protocol - Monitor for fever/infection; low threshold for empiric antibiotics if febrile or septic Supportive Care - IV fluids as needed for hydration - Monitor electrolytes, glucose - DVT prophylaxis with SCDs - Fall precautions ATTESTATION BY PHYSICIAN I have seen and examined the patient. I reviewed the documentation, medical decision making, and treatment plan as noted by the resident physician above. I agree with the findings and plan of care. ELMIRA AHUJA MD, ADIL SHAH QUADRI MD Oct 25, 2025 10:35
--- NOTE | 2025-10-25 13:56 | NUR ---
CM NOTE CM discussed plan of care with Dr. Tubbs. Patient is not medically cleared. Pending Dr. Mayo consult for pancytopenia. Plan will be to consult [facility] once medically cleared for possible inpatient psych placement. Patient remains on 1:1 sitter. CM to f/u.
--- NOTE | 2025-10-25 18:14 | CONS ---
CONSULT NOTE: The patient is a 55-year-old female with a history of diabetes mellitus (noncompliant), anxiety, and depression, who presented to the ED for altered mental status. She has not taken her prescribed psychiatric medications (sertraline 200 mg nightly, quetiapine 100 mg nightly, prazosin 1 mg nightly, bupropion XL 300 mg nightly) for the past four days, reportedly due to a desire to avoid "drugs in her body." On my evaluation, the patient was awake but minimally interactive, kept her eyes closed, and repeatedly stated she was thirsty and did not want to be bothered, expressing latter-day ideation ("wants the Holy Spirit to purge her"). She was initially being considered for psychiatric admission, but laboratory evaluation revealed pancytopenia with severe thrombocytopenia (WBC 2.52.7, Hgb 11.110.7, Hct 33.331.9, platelets 4743), raising concern for a primary hematologic process such as thrombotic thrombocytopenic purpura (TTP). During her ED stay, she was intermittently unc ooperative, at one point locking herself in the bathroom and requiring security assistance. She was subsequently referred to the hospitalist service for further evaluation and management of her cytopenias and altered mental status. ] REVIEW OF SYSTEMS CONSTITUTIONAL: Denies fevers, chills, or night sweats. No unintentional weight loss reported. NEUROLOGICAL: Denies headache, amaurosis fugax, motor weakness, sensory deficit, vertigo/spinning sensation, gait abnormalities, or tremors. ENT: No hearing loss, otalgia, otorrhea, rhinitis, rhinorrhea, hoarseness, or sore throat. CARDIOVASCULAR: Denies any exertional angina, dyspnea on exertion, orthopnea, paroxysmal nocturnal dyspnea, palpitations, life-threatening arrhythmias, claudication. PULMONARY: Denies any shortness of breath, cough, phlegm/sputum, hemoptysis, pleuritic chest pain. SLEEP: Denies morning headaches, daytime somnolence or napping. Denies difficulty falling asleep, staying asleep, waking from sleep. Denies knowledge of snoring. GASTROINTESTINAL: Denies any type of dysphagia to either liquids or solids. Denies nausea, vomiting, pyrosis, early satiety, abdominal pain, diarrhea, constipation, or changes in stool consistency or caliber. Denies coffee-ground emesis, hematemesis, hematochezia, or melanotic stools. GENITOURINARY: Denies frequency, urgency, nocturia, hematuria or incontinence (Storage/Irritative symptoms.) Low urinary stream, straining to void, urinary intermittency or hesitancy, splitting of the voiding stream, terminal dribbling. ENDOCRINOLOGIC: Denies polyuria, polydipsia, polyphagia or heat/cold intolerances. HEMATOLOGIC: Denies thrombophilia/previous clots, or coagulopathy/bleeding disorders. ONCOLOGIC: Denies personal history of malignancy. DERMATOLOGIC: Denies rashes or pruritus. PSYCHIATRIC: Denies any suicidal or homicidal ideation. Denies hallucinations. PAST MEDICAL HISTORY: [ Diabetes mellitus, anxiety, depression ] PAST SURGICAL HISTORY: [, patient will not answer my question ] PAST SOCIAL HISTORY: [ Patient lives with her son. Denies tobacco, alcohol illicit drug use ] FAMILY HISTORY: [Noncontributory ] Coded Allergies: No Known Drug Allergies (Unverified Allergy, Unknown, 06/14/22) PHYSICAL EXAM GENERAL APPEARANCE: Awake, eyes closed, minimally interactive, responds only to direct questioning, requests not to be bothered, expresses latter-day ideation NEUROLOGICAL: Cranial nerves II-XII grossly intact. Motor is 5/5 in bilateral upper and lower extremities proximal to distal. No sensory deficits. HEENT: Face is symmetric. Pupils are equal and reactive. Extraocular movements are intact. NECK: Supple. No JVD. No thyromegaly. No submental, submandibular, pre- /postauricular, occipital or supraclavicular lymphadenopathy. CHEST: Normal chest expansion. No Telemetry. LUNGS: Absence of any rales, rhonchi or any wheezing. CARDIOVASCULAR: Regular. S1 and S2 normal. No appreciable rubs, murmurs or gallops. ABDOMEN: Soft, nontender, and nondistended. There is no rebound, voluntary guarding, or rigidity. : Deferred. No Clayton. EXTREMITIES: Non-edematous and not cyanotic. No clubbing. Good capillary refill. SKIN: lower ext petechiae Psych: Flat affect, withdrawn, latter-day preoccupation, minimally responsive Assessment 1. Neutropenia 2. Anemia 3. Thrombocytopenia 4. Change mental status 5. Diabetes mellitus 6. Which time viral virus infection Plan 1. Peripheral blood smear showed red blood cells to be normocytic normochromic. There was no fragment cell or schistocyte. There is no teardrop cell. There is no rouleaux phenomena. There is no pelger-Huet cell. White blood cell with no blasts. Platelet was decreased in number. Was normal in size. As there was some clumping of the platelet with manual platelet count around 60K. 2. There was hypersegmented neutrophils. This patient to be started on folic acid 1 mg p.o. daily and vitamin B12 1000 mcg p.o. daily. 3. Peripheral blood smear showed vacuolation inside the white cell consistent with infection. 4. There was no fragment cell or schistocytes. This could rule out TTP. 5. I think the pancytopenia due to use of antipsychotic medication in this case. There is no need for bone marrow biopsy to be done. The pancytopenia could be multifactorial also with the Gwendolyn-Grubbs virus infection could be also ruled. In this case is given IVIG 1 g/kg daily for 2 days could help. KATHERYN BROWN MD Oct 25, 2025 18:14
[2025-10-26] VITALS (7 sets, daily range): BP systolic 107–138; BP diastolic 46–75; PULSE 73–98; RESP 17–20; TEMP 97.9–99.6; O2SAT 98
--- NOTE | 2025-10-26 00:10 | HMCIMG ---
EXAM Ultrasound of the right upper quadrant CLINICAL INDICATION check for liver cirrhosis (Hx). COMPARISON None. TECHNIQUE Grayscale and color Doppler ultrasound images of the right upper quadrant were obtained. LIVER The liver measures approximately 14.5 cm in craniocaudal dimension. The hepatic parenchyma demonstrates mild increased echogenicity consistent with hepatic steatosis. No focal hepatic lesion is identified. The hepatic contour is smooth. The main portal vein is patent with normal hepatopetal flow. GALLBLADDER The gallbladder is not visualized on this examination. BILIARY TREE The common bile duct measures approximately 0.5 cm in diameter and is within normal limits. No intrahepatic or extrahepatic biliary ductal dilatation is identified. PANCREAS The visualized portions of the pancreas are within normal limits. RIGHT KIDNEY The right kidney measures approximately 10 x 4.4 x 4.3 cm. Renal cortical thickness and echogenicity are normal. No hydronephrosis or renal calculi are identified. ASCITES No free fluid is identified in the right upper quadrant. IMPRESSION * Gallbladder not visualized, limiting evaluation for gallbladder pathology. * Mild hepatic steatosis with liver size measuring 14.5 cm. * Normal caliber common bile duct without biliary ductal dilatation. * Unremarkable right kidney without hydronephrosis. * No ascites identified. RECOMMENDATIONS * If there is persistent clinical concern for gallbladder pathology, repeat right upper quadrant ultrasound after appropriate fasting or alternative imaging such as HIDA scan or CT abdomen may be considered, in accordance with ACR Appropriateness Criteria. * Clinical correlation and laboratory evaluation are recommended for hepatic steatosis, with consideration of lifestyle modification as clinically indicated. /Shannan
[2025-10-26 04:26] LABS: NUCLEATED RED BLOOD CELLS 0.0 % (0.0-0.19); PLATELET COUNT (AUTO) 34 K/uL (130-400); RED BLOOD CELL COUNT(AUTO) 3.38 MIL/uL (4.00-5.50); RED CELL DISTRIBUTION WIDTH 13.7 % (11.0-15.5); WHITE BLOOD COUNT (AUTO) 3.0 K/uL (4.8-10.8)
[2025-10-26 04:41] LABS: ASPARTATE AMINOTRANSFERASE 13.0 U/L (10-37); CREATININE 0.7 mg/dL (0.5-1.0); GLOMERULAR FILTR. RATE CALC 103.0 mL/min (>90); GLUCOSE,RANDOM 104.0 mg/dL (70-105); SODIUM SERUM 141.0 mmol/L (136-145); TOTAL PROTEIN, SERUM 5.8 g/dL (6.0-8.3); UREA NITROGEN, BLOOD 7.0 mg/dL (7-18)
[2025-10-26 05:19] LABS: BASOPHILS % (MANUAL) 1 % (0-2); EOSINOPHILS % (MANUAL) 1 % (1-6); LYMPHOCYTES % (MANUAL) 46 % (22-44); MONOCYTES % (MANUAL) 31 % (2-9); SEGMENTED NEUTROPHILS % 21 % (40-70)
[2025-10-26 05:20] LABS: MAN.DIFF COMMENT-IMPRESSION MANUAL DIFFERENTIAL; WBC MORPHOLOGY REACTIVE LYMPHS 1+
[2025-10-26] MEDS: CYANOCOBALAMIN (VITAMIN B-12) 1,000 MCG TABLET PO SCH (09:15)
--- NOTE | 2025-10-26 10:55 | PN ---
[facility] PROGRESS NOTE Date of Service: Oct 26, 2025 Time of Service: 10:54 SUBJECTIVE: HISTORY OF PRESENT ILLNESS: The patient is a 55-year-old female with a history of diabetes mellitus (noncompliant), anxiety, and depression, who presented to the ED for altered mental status. She has not taken her prescribed psychiatric medications (sertraline 200 mg nightly, quetiapine 100 mg nightly, prazosin 1 mg nightly, bupropion XL 300 mg nightly) for the past four days, reportedly due to a desire to avoid "drugs in her body." On my evaluation, the patient was awake but minimally interactive, kept her eyes closed, and repeatedly stated she was thirsty and did not want to be bothered, expressing jewish ideation ("wants the Holy Spirit to purge her"). She was initially being considered for psychiatric admission, but laboratory evaluation revealed pancytopenia with severe thrombocytopenia (WBC 2.52.7, Hgb 11.110.7, Hct 33.331.9, platelets 4743), raising concern for a primary hematologic process such as thrombotic thrombocytopenic purpura (TTP). During her ED stay, she was intermittently uncooperative, at one point locking herself in the bathroom and requiring security assistance. She was subsequently referred to the hospitalist service for further evaluation and management of her cytopenias and altered mental status. 10/23/2025: Patient was seen and evaluated bedside this morning. she is awake, alert, agitated and confused, currently on 1 on 1 sitter. Morning labs showed white count 2.9, H&H 11.7, 35respectively, platelet count 40, PT 11.2, INR 1.06. As per tele psych recommendations her psychiatry medications are on hold except for Seroquel 100 mg for mood stabilization/psychosis, Haldol5 mg p.o. q.6 PRN for agitation. Patient might need psych admission as she is endorsing suicidal ideation, command hallucination, presently manic. Hematology was consulted for f urther evaluation of pancytopenia. 10/24/2025: Patient was evaluated bedside this morning. Patient has been agitated and looks confused. However she is more cooperative today. She has been hallucinating and is on one-to-one observation. Labs remarkable for WBC 3.1, hemoglobin 10.7, platelets 45, potassium 3.4. Hematology has been consulted for pancytopenia. She has been agitated and benefitted hallucinating. She do have a suicidal ideation and still remains confused. Telepsych recommended to continue Seroquel 100 mg HS and keep Haldol 5 mg q.6 PRN along with [id number] mg. Patient needs inpatient psych admission after medically stable. Rest of the plan as discussed below. 10/25/2025: Patient was seen and evaluated bedside this morning, no family at bedside. Patient has been agitated, confused and paranoid. Patient has been hallucinating and is on one-to-one observation. Morning Labs white count 3.9, H&H 10.9, 32, platelets 37. Hematology has been consulted for pancytopenia. We will get ultrasound right upper quadrant to check for liver cirrhosis. She do have a suicidal ideation and still remains confused. Telepsych recommended to continue Seroquel 100 mg HS and keep Haldol 5 mg q.6 PRN along with [id number] mg. Patient needs inpatient psych admission after medically stable. Rest of the plan as discussed below. 10/26/2025: Patient was seen and evaluated bedside this morning, no family at bedside. Patient has been hallucinating and continues on one-to-one observation. Morning labs revealed white count 3, H and H 9.8, 30.6 respectively, platelets 34, sodium 141, potassium 3.5. Ultrasound abdomen revealed mild hepatic steatosis with liver size measuring 14.5 cm, pending CT abdomen. Dr. Mayo recommended starting folic acid1 mg p.o. daily, vitamin B12 1000 mcg daily due to hypersegmented neutrophils on peripheral smear. He said the pancytopenia could be multifactorial due to antipsychotic medications, Gwendolyn bar virus infection, said no need for bone marrow biopsy to be done. He suggested giving IVIG1 g/kg daily for2 days could help in this case. Patient needs inpatient psych admission after medically stable. Rest of the plan as discussed below. REVIEW OF SYSTEMS CONSTITUTIONAL: Denies fevers, chills, or night sweats. No unintentional weight loss reported. NEUROLOGICAL: Denies headache, amaurosis fugax, motor weakness, sensory deficit, vertigo/spinning sensation, gait abnormalities, or tremors. ENT: No hearing loss, otalgia, otorrhea, rhinitis, rhinorrhea, hoarseness, or sore throat. CARDIOVASCULAR: Denies any exertional angina, dyspnea on exertion, orthopnea, paroxysmal nocturnal dyspnea, palpitations, life-threatening arrhythmias, claudication. PULMONARY: Denies any shortness of breath, cough, phlegm/sputum, hemoptysis, pleuritic chest pain. SLEEP: Denies morning headaches, daytime somnolence or napping. Denies dif ficulty falling asleep, staying asleep, waking from sleep. Denies knowledge of snoring. GASTROINTESTINAL: Denies any type of dysphagia to either liquids or solids. Denies nausea, vomiting, pyrosis, early satiety, abdominal pain, diarrhea, constipation, or changes in stool consistency or caliber. Denies coffee-ground emesis, hematemesis, hematochezia, or melanotic stools. GENITOURINARY: Denies frequency, urgency, nocturia, hematuria or incontinence (Storage/Irritative symptoms.) Low urinary stream, straining to void, urinary intermittency or hesitancy, splitting of the voiding stream, terminal dribbling. ENDOCRINOLOGIC: Denies polyuria, polydipsia, polyphagia or heat/cold i ntolerances. HEMATOLOGIC: Denies thrombophilia/previous clots, or coagulopathy/bleeding disorders. ONCOLOGIC: Denies personal history of malignancy. DERMATOLOGIC: Denies rashes or pruritus. PSYCHIATRIC: Denies any suicidal or homicidal ideation. Denies hallucinations. PHYSICAL EXAM GENERAL APPEARANCE: Awake, eyes closed, minimally interactive, responds only to direct questioning, requests not to be bothered, expresses jewish ideation NEUROLOGICAL: Cranial nerves II-XII grossly intact. Motor is 5/5 in bilateral upper and lower extremities proximal to distal. No sensory deficits. HEENT: Face is symmetric. Pupils are equal and reactive. Extraocular movements are intact. NECK: Supple. No JVD. No thyromegaly. No submental, submandibular, pre- /postauricular, occipital or supraclavicular lymphadenopathy. CHEST: Normal chest expansion. No Telemetry. LUNGS: Absence of any rales, rhonchi or any wheezing. CARDIOVASCULAR: Regular. S1 and S2 normal. No appreciable rubs, murmurs or gallops. ABDOMEN: Soft, nontender, and nondistended. There is no rebound, voluntary guarding, or rigidity. : Deferred. No Clayton. EXTREMITIES: Non-edematous and not cyanotic. No clubbing. Good capillary refill. SKIN: lower ext petechiae Psych: Flat affect, withdrawn, jewish preoccupation, minimally responsive Vital Signs (last 8hr) Date Time Temp Pulse Resp B/P (MAP) Pulse Ox O2 Delivery O2 Flow Rate FiO2 10/26/25 08:00 97.9 73 18 107/46 98 Room Air 21 10/26/25 04:00 99.7 83 20 109/61 99 Room Air LABS: Laboratory: Test 10/26/25 03:52 10/25/25 05:00 Range/Units White Blood Count 3.0 L 4.8-10.8 K/uL Red Blood Count 3.38 L 4.00-5.50 MIL/uL Hemoglobin 9.8 L 12.0-16.0 g/dL Hematocrit 30.6 L 36-48 % Mean Corpuscular Volume 90.5 79-99 fL Mean Corpuscular Hemoglobin 29.0 27.0-33.0 pg Mean Corpuscular Hemoglobin Concent 32.0 32.0-36.0 g/dL Red Cell Distribution Width 13.7 11.0-15.5 % Platelet Count 34 L 130-400 K/uL Mean Platelet Volume 12.2 H 7.5-10.5 fL Segmented Neutrophils % 21 L 40-70 % Lymphocytes % (Manual) 46 H 22-44 % Monocytes % (Manual) 31 H 2-9 % Eosinophils % (Manual) 1 1-6 % Basophils % (Manual) 1 0-2 % Nucleated Red Blood Cells 0.0 0.0-0.19 % Differential Comment MANUAL DIFFERENTIAL White Cell Morphology Comment REACTIVE LYMPHS 1+ Platelet Morphology Comment See comments Red Blood Cell Morphology ANISO 1+ Sodium Level 141 136-145 mmol/L Potassium Level 3.5 3.5-5.1 mmol/L Chloride Level 108 101-111 mmol/L Carbon Dioxide Level 26 21-32 mmol/L Blood Urea Nitrogen 7 7-18 mg/dL Creatinine 0.7 0.5-1.0 mg/dL Glomerular Filtration Rate Calc 103 >90 mL/min Random Glucose 104 70-105 mg/dL Total Calcium 8.0 L 8.5-10.1 mg/dL Total Bilirubin 0.4 0.2-1.0 mg/dL Aspartate Amino Transf (AST/SGOT) 13 10-37 U/L Alanine Aminotransferase (ALT/SGPT) 17 12-78 U/L Alkaline Phosphatase 62 50-136 U/L Total Protein 5.8 L 6.0-8.3 g/dL Albumin 2.8 L 3.5-5.0 g/dL Immature Granulocyte % (Auto) 0.5 0-1 % Neutrophils (%) (Auto) 26.4 L 40.0-77.0 % Lymphocytes (%) (Auto) 29.5 21.0-51.0 % Monocytes (%) (Auto) 43.3 H 3.0-13.0 % Eosinophils (%) (Auto) 0.3 0.0-8.0 % Basophils (%) (Auto) 0.0 0.0-5.0 % Neutrophils # (Auto) 1.0 L 1.8-7.7 K/uL Lymphocytes # (Auto) 1.2 1.0-4.8 K/uL Monocytes # (Auto) 1.7 H 0.1-1.0 K/uL Eosinophils # (Auto) 0.01 0.00-0.70 K/uL Basophils # (Auto) 0.00 0.00-0.20 K/uL Absolute Immature Granulocyte (auto 0.02 0-1 K/uL Current Medications Medications (Trade) Dose Ordered Sig/Michael Route PRN Reason Start Time Stop Time Status Last Admin Dose Admin Acetaminophen (TYLenol 325MG TAB) 650 mg Q4H PRN PO TEMPERATURE GREATER THAN 101.5 10/22/25 12:30 11/21/25 12:29 10/24/25 01:16 650 MG Acetaminophen (TYLenol 325MG TAB) 650 mg Q6H PRN PO MILD PAIN (1-3) 10/22/25 12:30 11/21/25 12:29 Ceftriaxone Sodium (ROCEphine 1G INJ) 1 gm Q24H IVPB 10/22/25 12:30 10/24/25 07:18 DC 10/22/25 14:59 1 GM Ceftriaxone Sodium (ROCEphine 1G INJ) 1 gm Q24H IVPB 10/24/25 09:00 11/03/25 08:59 10/26/25 08:13 1 GM Diphenhydramine HCl (BENAdryl CAP) 25 mg Q6H PRN PO AGITATION 10/25/25 08:30 11/24/25 08:29 10/25/25 15:02 25 MG Enoxaparin Sodium (Lovenox) 40 mg DAILY SQ 10/23/25 09:00 10/23/25 14:56 DC 10/23/25 08:29 40 MG Folic Acid (FOLic ACID 1 MG TABLET) 1 mg DAILY PO 10/26/25 09:00 11/25/25 08:59 10/26/25 09:15 1 MG Haloperidol (Haldol) 5 mg Q6H PRN PO ANXIETY/AGITATION 10/25/25 08:30 11/24/25 08:29 Hydralazine HCl (APRESOLine 20MG INJ) 10 mg Q6H PRN IV ADMINISTER FOR SBP > 160 10/22/25 17:00 11/21/25 16:59 Ondansetron HCl (zoFRAN 4MG INJ) 4 mg Q6H PRN IVP NAUSEA/VOMITING 10/22/25 12:30 11/21/25 12:29 10/22/25 16:14 4 MG Pharmacy Profile Note (Pharmacy Communication) ONCE MISC 10/22/25 14:00 10/22/25 19:24 DC Potassium Chloride 100 ml @ 100 mls/hr AD PRN IV POTASSIUM PROTOCOL 10/25/25 08:30 11/24/25 08:29 Potassium Chloride (K-Dur/Klor-Con 20meq) 20 meq AD PRN PO POTASSIUM PROTOCOL 10/25/25 08:30 11/24/25 08:29 10/26/25 09:16 20 MEQ Potassium Chloride (KCl 10% Elixir 20meq/15ml) 20 meq AD PRN PO POTASSIUM PROTOCOL 10/25/25 08:30 11/24/25 08:29 Quetiapine Fumarate (SEROquel 100 mg TAB) 100 mg HS PO 10/23/25 21:00 11/22/25 20:59 10/25/25 21:15 100 MG Sodium Chloride 1,000 ml @ 75 mls/hr [id number] IV 10/22/25 12:30 11/21/25 12:29 10/26/25 09:15 75 MLS/HR Vitamin B Complex (Vitamin B-12) 1,000 mcg DAILY PO 10/26/25 09:00 11/25/25 08:59 10/26/25 09:15 1,000 MCG DIAGNOSTICS / RADIOLOGY: [ ] [facility] [address] [place] [address] IMAGING REPORT Signed PATIENT: JEFF SHELL MR#: [id number] : 1970 SEX: F AGE: 55 LOCATION: [facility] ORDER 1006 STATUS: ADM IN REPORT#: [id number] SERVICE 1004 REASON: check for liver cirrhosis ORDERING PHYSICIAN: ANGELA MCCLAIN MD PROCEDURE: [id number] - US ABDOMINAL RUQ\\LTD EXAM Ultrasound of the right upper quadrant CLINICAL INDICATION check for liver cirrhosis (Hx). COMPARISON None. TECHNIQUE Grayscale and color Doppler ultrasound images of the right upper quadrant were obtained. LIVER The liver measures approximately 14.5 cm in craniocaudal dimension. The hepatic parenchyma demonstrates mild increased echogenicity consistent with hepatic steatosis. No focal hepatic lesion is identified. The hepatic contour is smooth. The main portal vein is patent with normal hepatopetal flow. GALLBLADDER The gallbladder is not visualized on this examination. BILIARY TREE The common bile duct measures approximately 0.5 cm in diameter and is within normal limits. No intrahepatic or extrahepatic biliary ductal dilatation is identified. PANCREAS The visualized portions of the pancreas are within normal limits. RIGHT KIDNEY The right kidney measures approximately 10 x 4.4 x 4.3 cm. Renal cortical thickness and echogenicity are normal. No hydronephrosis or renal calculi are identified. ASCITES No free fluid is identified in the right upper quadrant. IMPRESSION * Gallbladder not visualized, limiting evaluation for gallbladder pathology. * Mild hepatic steatosis with liver size measuring 14.5 cm. * Normal caliber common bile duct without biliary ductal dilatation. * Unremarkable right kidney without hydronephrosis. * No ascites identified. RECOMMENDATIONS * If there is persistent clinical concern for gallbladder pathology, repeat right upper quadrant ultrasound after appropriate fasting or alternative imaging such as HIDA scan or CT abdomen may be considered, in accordance with ACR Appropriateness Criteria. * Clinical correlation and laboratory evaluation are recommended for hepatic steatosis, with consideration of lifestyle modification as clinically indicated. /[place] DICTATED BY: MARLEY BUCK MD DATE: 10/26/25108 ELECTRONICALLY SIGNED BY: MARLEY BUCK MD DATE: 10/26/25108 ASSESSMENT: Pancytopenia with severe thrombocytopenia and neutropenia Altered mental status (AMS) Medication noncompliance/withdrawal Bipolar1 disorder with psychotic features History of depression, PTSD, anxiety Mild metabolic derangements Mild UTI vs. asymptomatic bacteriuria PLAN: Pancytopenia with severe thrombocytopenia and neutropenia - WBC 2.52.7, Plt 4743, Hgb 11.110.7, ANC 0.8 - peripheral blood smear showed red blood cells to be normocytic normochromic. There was no fragments cell or schistocyte. There is no teardrop cells. There is no rouleaux phenomena. There is no pelger-Huet cell. Red cells with no blast. - platelets decreased in number, normal size, some clumping of platelets with manual platelet site count around 60 K - there was hypersegmented neutrophils, patient was started on folic acid1 mg p.o. daily and vitamin B12 1000 mcg p.o. daily - the pancytopenia could be multifactorial, IVIG1 g/kg daily for2 days could help as per Heme-Onc - Transfuse platelets only if active bleeding or <10K, or if invasive procedures needed (per hematology guidance) - Daily CBC to trend - hematology on board, we will continue to follow their recommendations. Altered Mental Status - Monitor neuro status closely - Repeat neuro exam q24h - MRI brain if mental status does not improve or if new focal deficits develop (per CT recommendation) - Correct metabolic derangements as indicated - Monitor for infection/sepsis given neutropenia Bipolar1 disorder with psychotic features History of depression, PTSD, anxiety - psychiatry recommended to hold Zoloft, Wellbutrin, Ativan. Start her on Seroquel 100 mg daily and Haldol 5 mg per oral/IM and [id number] mg per oral/IM q.6 hour PRN for agitation. - Monitor for withdrawal symptoms (serotonin discontinuation, antipsychotic withdrawal, bupropion) - Reinitiate home psych meds as appropriate, in collaboration with psychiatry and after medical clearance Infection Prophylaxis - Reverse isolation/neutropenic precautions if ANC <500 or as per hospital protocol - Monitor for fever/infection; low threshold for empiric antibiotics if febrile or septic Supportive Care - IV fluids as needed for hydration - Monitor electrolytes, glucose - DVT prophylaxis with SCDs - Fall precautions ATTESTATION BY PHYSICIAN I have seen and examined the patient. I reviewed the documentation, medical decision making, and treatment plan as noted by the resident physician above. I agree with the findings and plan of care. ELMIRA AHUJA MD, ADIL SHAH QUADRI MD Oct 26, 2025 10:54
--- NOTE | 2025-10-26 15:59 | NUR ---
CT ON HOLD AT THIS TIME. PT WITHOUT PROPER IV SITE FOR CT W/ CONTRAST.
--- NOTE | 2025-10-26 16:28 | PN ---
The patient is a 55-year-old female with a history of diabetes mellitus (noncompliant), anxiety, and depression, who presented to the ED for altered mental status. She has not taken her prescribed psychiatric medications (sertraline 200 mg nightly, quetiapine 100 mg nightly, prazosin 1 mg nightly, bupropion XL 300 mg nightly) for the past four days, reportedly due to a desire to avoid "drugs in her body." On my evaluation, the patient was awake but minimally interactive, kept her eyes closed, and repeatedly stated she was thirsty and did not want to be bothered, expressing tenriism ideation ("wants the Holy Spirit to purge her"). She was initially being considered for psychiatric admission, but laboratory evaluation revealed pancytopenia with severe thrombocytopenia (WBC 2.52.7, Hgb 11.110.7, Hct 33.331.9, platelets 4743), raising concern for a primary hematologic process such as thrombotic thrombocytopenic purpura (TTP). During her ED stay, she was intermittently uncooperative, at one point locking herself in the bathroom and requiring security assistance. She was subsequently referred to the hospitalist service for further evaluation and management of her cytopenias and altered mental status. ] Peripheral blood smear was evaluated. There was no blasts could be seen. There is not much abnormality except pancytopenia which look like drug-induced. White blood count 3.0 with normal manual differentiation. Hemoglobin 9.8 g/deciliter with platelets 34K. PHYSICAL EXAM GENERAL APPEARANCE: Awake, eyes closed, minimally interactive, responds only to direct questioning, requests not to be bothered, expresses tenriism ideation NEUROLOGICAL: Cranial nerves II-XII grossly intact. Motor is 5/5 in bilateral upper and lower extremities proximal to distal. No sensory deficits. HEENT: Face is symmetric. Pupils are equal and reactive. Extraocular movements are intact. NECK: Supple. No JVD. No thyromegaly. No submental, submandibular, pre- /postauricular, occipital or supraclavicular lymphadenopathy. CHEST: Normal chest expansion. No Telemetry. LUNGS: Absence of any rales, rhonchi or any wheezing. CARDIOVASCULAR: Regular. S1 and S2 normal. No appreciable rubs, murmurs or gallops. ABDOMEN: Soft, nontender, and nondistended. There is no rebound, voluntary guarding, or rigidity. : Deferred. No Clayton. EXTREMITIES: Non-edematous and not cyanotic. No clubbing. Good capillary refill. SKIN: lower ext petechiae Psych: Flat affect, withdrawn, tenriism preoccupation, minimally responsive Assessment 1. Neutropenia. 2. Anemia 3. Thrombocytopenia 4. Change mental status 5. Diabetes mellitus 6. Which time viral virus infection Plan 1. No need for blood product transfusion. There is no need for bone marrow biopsy at this time As there was some clumping of the platelet with manual platelet count around 60K. 2. There was hypersegmented neutrophils. This patient to be started on folic acid 1 mg p.o. daily and vitamin B12 1000 mcg p.o. daily. 3. Peripheral blood smear showed vacuolation inside the white cell consistent with infection. 4. There was no fragment cell or schistocytes. This could rule out TTP. 5. I think the pancytopenia due to use of antipsychotic medication in this case. There is no need for bone marrow biopsy to be done. 6. CBC daily Vitals/Labs Vital Signs Date Time Temp Pulse Resp B/P (MAP) Pulse Ox O2 Delivery O2 Flow Rate FiO2 10/26/25 16:00 98.1 79 18 120/66 100 Room Air 21 10/26/25 08:00 0 Laboratory Tests 10/26/25 03:52 Medications Current Medications Ondansetron HCl 4 mg ONCE ONCE IVP Last administered on 10/22/25at 06:45; Start 10/22/25 at 06:30; Stop 10/22/25 at 06:31; Status DC Acetaminophen 650 mg Q4H PRN PO Last administered on 10/24/25at 01:16; Start 10/22/25 at 12:30; Stop 11/21/25 at 12:29 Acetaminophen 650 mg Q6H PRN PO; Start 10/22/25 at 12:30; Stop 11/21/25 at 12:29 Ondansetron HCl 4 mg Q6H PRN IVP Last administered on 10/22/25at 16:14; Start 10/22/25 at 12:30; Stop 11/21/25 at 12:29 Sodium Chloride 1,000 ml @ 75 mls/hr [id number] IV Last administered on 10/26/25at 09:15; Start 10/22/25 at 12:30; Stop 11/21/25 at 12:29 Ceftriaxone Sodium 1 gm Q24H IVPB Last administered on 10/22/25at 14:59; Start 10/22/25 at 12:30; Stop 10/24/25 at 07:18; Status DC Quetiapine Fumarate 100 mg ONCE ONCE PO Last administered on 10/22/25at 15:17; Start 10/22/25 at 14:00; Stop 10/22/25 at 14:02; Status DC Quetiapine Fumarate 100 mg HS PO Last administered on 10/25/25at 21:15; Start 10/23/25 at 21:00; Stop 11/22/25 at 20:59 Pharmacy Profile Note ONCE MISC; Start 10/22/25 at 14:00; Stop 10/22/25 at 19:24; Status DC Enoxaparin Sodium 40 mg DAILY SQ Last administered on 10/23/25at 08:29; Start 10/23/25 at 09:00; Stop 10/23/25 at 14:56; Status DC Hydralazine HCl 10 mg Q6H PRN IV; Start 10/22/25 at 17:00; Stop 11/21/25 at 16:59 Ceftriaxone Sodium 1 gm Q24H IVPB Last administered on 10/26/25at 08:13; Start 10/24/25 at 09:00; Stop 11/03/25 at 08:59 Potassium Chloride 100 ml @ 100 mls/hr AD PRN IV; Start 10/25/25 at 08:30; Stop 11/24/25 at 08:29 Potassium Chloride 20 meq AD PRN PO; Start 10/25/25 at 08:30; Stop 11/24/25 at 08:29 Potassium Chloride 20 meq AD PRN PO Last administered on 10/26/25at 09:16; Start 10/25/25 at 08:30; Stop 11/24/25 at 08:29 Haloperidol 5 mg Q6H PRN PO; Start 10/25/25 at 08:30; Stop 11/24/25 at 08:29 Diphenhydramine HCl 25 mg Q6H PRN PO Last administered on 10/25/25at 15:02; Start 10/25/25 at 08:30; Stop 11/24/25 at 08:29 Folic Acid 1 mg DAILY PO Last administered on 10/26/25at 09:15; Start 10/26/25 at 09:00; Stop 11/25/25 at 08:59 Vitamin B Complex 1,000 mcg DAILY PO Last administered on 10/26/25at 09:15; Start 10/26/25 at 09:00; Stop 11/25/25 at 08:59 KATHERYN BROWN MD Oct 26, 2025 16:28
[2025-10-26] MEDS ORDERED: IOHEXOL-350 75 ML VIAL IV ONE (17:23)
[2025-10-27] VITALS (8 sets, daily range): BP systolic 106–128; BP diastolic 50–66; PULSE 78–92; RESP 17–20; TEMP 98–98.8; O2SAT 98–99
[2025-10-27 04:22] LABS: NUCLEATED RED BLOOD CELLS 0.0 % (0.0-0.19); PLATELET COUNT (AUTO) 42 K/uL (130-400); RED BLOOD CELL COUNT(AUTO) 3.49 MIL/uL (4.00-5.50); RED CELL DISTRIBUTION WIDTH 13.9 % (11.0-15.5); WHITE BLOOD COUNT (AUTO) 2.4 K/uL (4.8-10.8)
[2025-10-27 04:41] LABS: ASPARTATE AMINOTRANSFERASE 23.0 U/L (10-37); CREATININE 0.5 mg/dL (0.5-1.0); GLOMERULAR FILTR. RATE CALC 112.0 mL/min (>90); GLUCOSE,RANDOM 122.0 mg/dL (70-105); SODIUM SERUM 142.0 mmol/L (136-145); TOTAL PROTEIN, SERUM 5.6 g/dL (6.0-8.3); UREA NITROGEN, BLOOD 7.0 mg/dL (7-18)
[2025-10-27 04:44] LABS: EOSINOPHILS % (MANUAL) 1 % (1-6); LYMPHOCYTES % (MANUAL) 42 % (22-44); MAN.DIFF COMMENT-IMPRESSION MANUAL DIFFERENTIAL; MONOCYTES % (MANUAL) 35 % (2-9); SEGMENTED NEUTROPHILS % 22 % (40-70)
[2025-10-27 04:45] LABS: WBC MORPHOLOGY REACTIVE LYMPHS 1+
--- NOTE | 2025-10-27 09:44 | PN ---
[facility] PROGRESS NOTE Date of Service: Oct 27, 2025 Time of Service: 09:44 SUBJECTIVE: HISTORY OF PRESENT ILLNESS: The patient is a 55-year-old female with a history of diabetes mellitus (noncompliant), anxiety, and depression, who presented to the ED for altered mental status. She has not taken her prescribed psychiatric medications (sertraline 200 mg nightly, quetiapine 100 mg nightly, prazosin 1 mg nightly, bupropion XL 300 mg nightly) for the past four days, reportedly due to a desire to avoid "drugs in her body." On my evaluation, the patient was awake but minimally interactive, kept her eyes closed, and repeatedly stated she was thirsty and did not want to be bothered, expressing druze ideation ("wants the Holy Spirit to purge her"). She was initially being considered for psychiatric admission, but laboratory evaluation revealed pancytopenia with severe thrombocytopenia (WBC 2.52.7, Hgb 11.110.7, Hct 33.331.9, platelets 4743), raising concern for a primary hematologic process such as thrombotic thrombocytopenic purpura (TTP). During her ED stay, she was intermittently uncooperative, at one point locking herself in the bathroom and requiring security assistance. She was subsequently referred to the hospitalist service for further evaluation and management of her cytopenias and altered mental status. 10/23/2025: Patient was seen and evaluated bedside this morning. she is awake, alert, agitated and confused, currently on 1 on 1 sitter. Morning labs showed white count 2.9, H&H 11.7, 35respectively, platelet count 40, PT 11.2, INR 1.06. As per tele psych recommendations her psychiatry medications are on hold except for Seroquel 100 mg for mood stabilization/psychosis, Haldol5 mg p.o. q.6 PRN for agitation. Patient might need psych admission as she is endorsing suicidal ideation, command hallucination, presently manic. Hematology was consulted for f urther evaluation of pancytopenia. 10/24/2025: Patient was evaluated bedside this morning. Patient has been agitated and looks confused. However she is more cooperative today. She has been hallucinating and is on one-to-one observation. Labs remarkable for WBC 3.1, hemoglobin 10.7, platelets 45, potassium 3.4. Hematology has been consulted for pancytopenia. She has been agitated and benefitted hallucinating. She do have a suicidal ideation and still remains confused. Telepsych recommended to continue Seroquel 100 mg HS and keep Haldol 5 mg q.6 PRN along with [id number] mg. Patient needs inpatient psych admission after medically stable. Rest of the plan as discussed below. 10/25/2025: Patient was seen and evaluated bedside this morning, no family at bedside. Patient has been agitated, confused and paranoid. Patient has been hallucinating and is on one-to-one observation. Morning Labs white count 3.9, H&H 10.9, 32, platelets 37. Hematology has been consulted for pancytopenia. We will get ultrasound right upper quadrant to check for liver cirrhosis. She do have a suicidal ideation and still remains confused. Telepsych recommended to continue Seroquel 100 mg HS and keep Haldol 5 mg q.6 PRN along with [id number] mg. Patient needs inpatient psych admission after medically stable. Rest of the plan as discussed below. 10/26/2025: Patient was seen and evaluated bedside this morning, no family at bedside. Patient has been hallucinating and continues on one-to-one observation. Morning labs revealed white count 3, H and H 9.8, 30.6 respectively, platelets 34, sodium 141, potassium 3.5. Ultrasound abdomen revealed mild hepatic steatosis with liver size measuring 14.5 cm, pending CT abdomen. Dr. Mayo recommended starting folic acid1 mg p.o. daily, vitamin B12 1000 mcg daily due to hypersegmented neutrophils on peripheral smear. He said the pancytopenia could be multifactorial due to antipsychotic medications, Gwendolyn bar virus infection, said no need for bone marrow biopsy to be done. He suggested giving IVIG1 g/kg daily for2 days could help in this case. Patient needs inpatient psych admission after medically stable. Rest of the plan as discussed below. 10/27/2025: Patient was seen and evaluated bedside this morning, no family at bedside. Patient has been hallucinating and continues on one-to-one observation. Morning labs revealed white count 2.4, H&H 10, 30.6 respectively, platelets 42, sodium 142, potassium 3.4. CT abdomen showed hepatosplenomegaly with hepatic steatosis. No focal hepatic lesions. Dilated portal/splenic vein-likely represents portal hypertension. No ascites. Patient needs inpatient psych admission after medically stable. Rest of the plan as discussed below. REVIEW OF SYSTEMS CONSTITUTIONAL: Denies fevers, chills, or night sweats. No unintentional weight loss reported. NEUROLOGICAL: Denies headache, amaurosis fugax, motor weakness, sensory deficit, vertigo/spinning sensation, gait abnormalities, or tremors. ENT: No hearing loss, otalgia, otorrhea, rhinitis, rhinorrhea, hoarseness, or sore throat. CARDIOVASCULAR: Denies any exertional angina, dyspnea on exertion, orthopnea, paroxysmal nocturnal dyspnea, palpitations, life-threatening arrhythmias, claudication. PULMONARY: Denies any shortness of breath, cough, phlegm/sputum, hemoptysis, pleuritic chest pain. SLEEP: Denies morning headaches, daytime somnolence or napping. Denies difficulty falling asleep, staying asleep, waking from sleep. Denies knowledge of snoring. GASTROINTESTINAL: Denies any type of dysphagia to either liquids or solids. Denies nausea, vomiting, pyrosis, early satiety, abdominal pain, diarrhea, constipation, or changes in stool consistency or caliber. Denies coffee-ground emesis, hematemesis, hematochezia, or melanotic stools. GENITOURINARY: Denies frequency, urgency, nocturia, hematuria or incontinence (Storage/Irritative symptoms.) Low urinary stream, straining to void, urinary intermittency or hesitancy, splitting of the voiding stream, terminal dribbling. ENDOCRINOLOGIC: Denies polyuria, polydipsia, polyphagia or heat/cold intolerances. HEMATOLOGIC: Denies thrombophilia/previous clots, or coagulopathy/bleeding disorders. ONCOLOGIC: Denies personal history of malignancy. DERMATOLOGIC: Denies rashes or pruritus. PSYCHIATRIC: Denies any suicidal or homicidal ideation. Denies hallucinations. PHYSICAL EXAM GENERAL APPEARANCE: Awake, eyes closed, minimally interactive, responds only to direct questioning, requests not to be bothered, expresses druze ideation NEUROLOGICAL: Cranial nerves II-XII grossly intact. Motor is 5/5 in bilateral upper and lower extremities proximal to distal. No sensory deficits. HEENT: Face is symmetric. Pupils are equal and reactive. Extraocular movements are intact. NECK: Supple. No JVD. No thyromegaly. No submental, submandibular, pre- /postauricular, occipital or supraclavicular lymphadenopathy. CHEST: Normal chest expansion. No Telemetry. LUNGS: Absence of any rales, rhonchi or any wheezing. CARDIOVASCULAR: Regular. S1 and S2 normal. No appreciable rubs, murmurs or gallops. ABDOMEN: Soft, nontender, and nondistended. There is no rebound, voluntary guarding, or rigidity. : Deferred. No [place]. EXTREMITIES: Non-edematous and not cyanotic. No clubbing. Good capillary refill. SKIN: lower ext petechiae Psych: Flat affect, withdrawn, druze preoccupation, minimally responsive Vital Signs (last 8hr) Date Time Temp Pulse Resp B/P (MAP) Pulse Ox O2 Delivery O2 Flow Rate FiO2 10/27/25 08:00 98.2 87 18 107/65 98 Room Air 10/27/25 04:00 98.4 87 17 122/66 97 Room Air LABS: Laboratory: Test 10/27/25 04:05 10/26/25 03:52 Range/Units White Blood Count 2.4 L 4.8-10.8 K/uL Red Blood Count 3.49 L 4.00-5.50 MIL/uL Hemoglobin 10.0 L 12.0-16.0 g/dL Hematocrit 30.6 L 36-48 % Mean Corpuscular Volume 87.7 79-99 fL Mean Corpuscular Hemoglobin 28.7 27.0-33.0 pg Mean Corpuscular Hemoglobin Concent 32.7 32.0-36.0 g/dL Red Cell Distribution Width 13.9 11.0-15.5 % Platelet Count 42 L 130-400 K/uL Mean Platelet Volume 12.3 H 7.5-10.5 fL Segmented Neutrophils % 22 L 40-70 % Lymphocytes % (Manual) 42 22-44 % Monocytes % (Manual) 35 H 2-9 % Eosinophils % (Manual) 1 1-6 % Nucleated Red Blood Cells 0.0 0.0-0.19 % Differential Comment MANUAL DIFFERENTIAL White Cell Morphology Comment REACTIVE LYMPHS 1+ Platelet Morphology Comment See comments Red Blood Cell Morphology See comments Sodium Level 142 136-145 mmol/L Potassium Level 3.4 L 3.5-5.1 mmol/L Chloride Level 108 101-111 mmol/L Carbon Dioxide Level 24 21-32 mmol/L Blood Urea Nitrogen 7 7-18 mg/dL Creatinine 0.5 0.5-1.0 mg/dL Glomerular Filtration Rate Calc 112 >90 mL/min Random Glucose 122 H 70-105 mg/dL Total Calcium 7.8 L 8.5-10.1 mg/dL Total Bilirubin 0.4 0.2-1.0 mg/dL Aspartate Amino Transf (AST/SGOT) 23 10-37 U/L Alanine Aminotransferase (ALT/SGPT) 21 12-78 U/L Alkaline Phosphatase 69 50-136 U/L Total Protein 5.6 L 6.0-8.3 g/dL Albumin 2.6 L 3.5-5.0 g/dL Basophils % (Manual) 1 0-2 % Current Medications Medications (Trade) Dose Ordered Sig/Michael Route PRN Reason Start Time Stop Time Status Last Admin Dose Admin Acetaminophen (TYLenol 325MG TAB) 650 mg Q4H PRN PO TEMPERATURE GREATER THAN 101.5 10/22/25 12:30 11/21/25 12:29 10/24/25 01:16 650 MG Acetaminophen (TYLenol 325MG TAB) 650 mg Q6H PRN PO MILD PAIN (1-3) 10/22/25 12:30 11/21/25 12:29 Ceftriaxone Sodium (ROCEphine 1G INJ) 1 gm Q24H IVPB 10/22/25 12:30 10/24/25 07:18 DC 10/22/25 14:59 1 GM Ceftriaxone Sodium (ROCEphine 1G INJ) 1 gm Q24H IVPB 10/24/25 09:00 11/03/25 08:59 10/27/25 09:13 1 GM Diphenhydramine HCl (BENAdryl CAP) 25 mg Q6H PRN PO AGITATION 10/25/25 08:30 11/24/25 08:29 10/25/25 15:02 25 MG Enoxaparin Sodium (Lovenox) 40 mg DAILY SQ 10/23/25 09:00 10/23/25 14:56 DC 10/23/25 08:29 40 MG Folic Acid (FOLic ACID 1 MG TABLET) 1 mg DAILY PO 10/26/25 09:00 11/25/25 08:59 10/27/25 09:13 1 MG Haloperidol (Haldol) 5 mg Q6H PRN PO ANXIETY/AGITATION 10/25/25 08:30 11/24/25 08:29 Hydralazine HCl (APRESOLine 20MG INJ) 10 mg Q6H PRN IV ADMINISTER FOR SBP > 160 10/22/25 17:00 11/21/25 16:59 Ondansetron HCl (zoFRAN 4MG INJ) 4 mg Q6H PRN IVP NAUSEA/VOMITING 10/22/25 12:30 11/21/25 12:29 10/22/25 16:14 4 MG Pharmacy Profile Note (Pharmacy Communication) ONCE MISC 10/22/25 14:00 10/22/25 19:24 DC Potassium Chloride 100 ml @ 100 mls/hr AD PRN IV POTASSIUM PROTOCOL 10/25/25 08:30 11/24/25 08:29 Potassium Chloride (K-Dur/Klor-Con 20meq) 20 meq AD PRN PO POTASSIUM PROTOCOL 10/25/25 08:30 11/24/25 08:29 10/27/25 06:38 20 MEQ Potassium Chloride (KCl 10% Elixir 20meq/15ml) 20 meq AD PRN PO POTASSIUM PROTOCOL 10/25/25 08:30 11/24/25 08:29 Quetiapine Fumarate (SEROquel 100 mg TAB) 100 mg HS PO 10/23/25 21:00 11/22/25 20:59 10/26/25 21:00 100 MG Sodium Chloride 1,000 ml @ 75 mls/hr [id number] IV 10/22/25 12:30 11/21/25 12:29 10/26/25 09:15 75 MLS/HR Vitamin B Complex (Vitamin B-12) 1,000 mcg DAILY PO 10/26/25 09:00 11/25/25 08:59 10/27/25 09:13 1,000 MCG DIAGNOSTICS / RADIOLOGY: [ ] [place] [address] [address] IMAGING REPORT Signed PATIENT: JEFF SHELL MR#: [id number] : 1970 SEX: F AGE: 55 LOCATION: 4BH ORDER 1026 STATUS: ADM IN REPORT#: [id number] SERVICE 1025 REASON: Liver disease ORDERING PHYSICIAN: ANGELA MCCLAIN MD PROCEDURE: ABDO WWO - CT ABDOMEN W/WO CONTRAST EXAM: CT Abdomen and Pelvis with and without IV contrast CLINICAL HISTORY: Liver disease TECHNIQUE: Axial computed tomography images of the abdomen and pelvis with and without intravenous contrast. CONTRAST: with and without intravenous contrast. COMPARISON: None provided. FINDINGS: LUNG BASES: The lung bases appear clear. No pleural effusions are seen. LIVER: Enlarged in size(20cm) Hepatic steatosis seen. Enlarges portal vein( 15mm) No focal lesion. GALLBLADDER: Cholecystectomy. PANCREAS: Unremarkable. SPLEEN: Splenomegaly(16cm). Dilated splenic vein (20mm) with perisplenic collaterals seen. ADRENAL GLANDS: Unremarkable. KIDNEYS AND URETERS: The kidneys appear within normal limits. There is no hydronephrosis or hydroureter. No urinary calculi are seen. STOMACH AND VISUALISED BOWEL: Unremarkable appearance of the stomach and bowel. No evidence of bowel obstruction. No evidence suggesting enteritis or colitis. PERITONEUM: No free fluid. No free air. LYMPH NODES: No lymphadenopathy is evident. VASCULATURE: No evidence of abdominal aortic aneurysm. BONES: No aggressive appearing osseous lesion. No acute osseous pathology evident. IMPRESSION: Hepatosplenomegaly with Hepatic steatosis. No focal hepatic lesions. Dilated portal /T/ splenic vein -likely represents Portal Hypertension. No ascites. /[place] DICTATED BY: DENA JAUREGUI MD DATE: 10/27/251048 ELECTRONICALLY SIGNED BY: DENA JAUREGUI MD DATE: 10/27/251048 ASSESSMENT: Pancytopenia with severe thrombocytopenia and neutropenia Altered mental status (AMS) Medication noncompliance/withdrawal Bipolar1 disorder with psychotic features History of depression, PTSD, anxiety Mild metabolic derangements Mild UTI vs. asymptomatic bacteriuria PLAN: Pancytopenia with severe thrombocytopenia and neutropenia - WBC 2.52.7, Plt 4743, Hgb 11.110.7, ANC 0.8 - peripheral blood smear showed red blood cells to be normocytic normochromic. There was no fragments cell or schistocyte. There is no teardrop cells. There is no rouleaux phenomena. There is no pelger-Huet cell. Red cells with no blast. - platelets decreased in number, normal size, some clumping of platelets with manual platelet site count around 60 K - there was hypersegmented neutrophils, patient was started on folic acid1 mg p.o. daily and vitamin B12 1000 mcg p.o. daily - the pancytopenia could be multifactorial, IVIG1 g/kg daily for2 days could help as per Heme-Onc - Transfuse platelets only if active bleeding or <10K, or if invasive procedures needed (per hematology guidance) - Daily CBC to trend - hematology on board, we will continue to follow their recommendations. Altered Mental Status - Monitor neuro status closely - Repeat neuro exam q24h - MRI brain if mental status does not improve or if new focal deficits develop (per CT recommendation) - Correct metabolic derangements as indicated - Monitor for infection/sepsis given neutropenia Bipolar1 disorder with psychotic features History of depression, PTSD, anxiety - psychiatry recommended to hold Zoloft, Wellbutrin, Ativan. Start her on Seroquel 100 mg daily and Haldol 5 mg per oral/IM and [id number] mg per oral/IM q.6 hour PRN for agitation. - Monitor for withdrawal symptoms (serotonin discontinuation, antipsychotic withdrawal, bupropion) - Reinitiate home psych meds as appropriate, in collaboration with psychiatry and after medical clearance Infection Prophylaxis - Reverse isolation/neutropenic precautions if ANC <500 or as per hospital protocol - Monitor for fever/infection; low threshold for empiric antibiotics if febrile or septic Supportive Care - IV fluids as needed for hydration - Monitor electrolytes, glucose - DVT prophylaxis with SCDs - Fall precautions ATTESTATION BY PHYSICIAN I have seen and examined the patient. I reviewed the documentation, medical decision making, and treatment plan as noted by the resident physician above. I agree with the findings and plan of care. ELMIRA AHUJA MD, ADIL SHAH QUADRI MD Oct 27, 2025 09:44
--- NOTE | 2025-10-27 09:50 | HMCIMG ---
EXAM: CT Abdomen and Pelvis with and without IV contrast CLINICAL HISTORY: Liver disease TECHNIQUE: Axial computed tomography images of the abdomen and pelvis with and without intravenous contrast. CONTRAST: with and without intravenous contrast. COMPARISON: None provided. FINDINGS: LUNG BASES: The lung bases appear clear. No pleural effusions are seen. LIVER: Enlarged in size(20cm) Hepatic steatosis seen. Enlarges portal vein( 15mm) No focal lesion. GALLBLADDER: Cholecystectomy. PANCREAS: Unremarkable. SPLEEN: Splenomegaly(16cm). Dilated splenic vein (20mm) with perisplenic collaterals seen. ADRENAL GLANDS: Unremarkable. KIDNEYS AND URETERS: The kidneys appear within normal limits. There is no hydronephrosis or hydroureter. No urinary calculi are seen. STOMACH AND VISUALISED BOWEL: Unremarkable appearance of the stomach and bowel. No evidence of bowel obstruction. No evidence suggesting enteritis or colitis. PERITONEUM: No free fluid. No free air. LYMPH NODES: No lymphadenopathy is evident. VASCULATURE: No evidence of abdominal aortic aneurysm. BONES: No aggressive appearing osseous lesion. No acute osseous pathology evident. IMPRESSION: Hepatosplenomegaly with Hepatic steatosis. No focal hepatic lesions. Dilated portal /T/ splenic vein -likely represents Portal Hypertension. No ascites. /[place]
--- NOTE | 2025-10-27 14:41 | PN ---
The patient is a 55-year-old female with a history of diabetes mellitus (noncompliant), anxiety, and depression, who presented to the ED for altered mental status. She has not taken her prescribed psychiatric medications (sertraline 200 mg nightly, quetiapine 100 mg nightly, prazosin 1 mg nightly, bupropion XL 300 mg nightly) for the past four days, reportedly due to a desire to avoid "drugs in her body." On my evaluation, the patient was awake but minimally interactive, kept her eyes closed, and repeatedly stated she was thirsty and did not want to be bothered, expressing druze ideation ("wants the Holy Spirit to purge her"). She was initially being considered for psychiatric admission, but laboratory evaluation revealed pancytopenia with severe thrombocytopenia (WBC 2.52.7, Hgb 11.110.7, Hct 33.331.9, platelets 4743), raising concern for a primary hematologic process such as thrombotic thrombocytopenic purpura (TTP). During her ED stay, she was intermittently uncooperative, at one point locking herself in the bathroom and requiring security assistance. She was subsequently referred to the hospitalist service for further evaluation and management of her cytopenias and altered mental status. ] Peripheral blood smear was evaluated. There was no blasts could be seen. There is not much abnormality except pancytopenia which look like drug-induced. White blood count 3.0 with normal manual differentiation. Hemoglobin 9.8 g/deciliter with platelets 34K. PHYSICAL EXAM GENERAL APPEARANCE: Awake, eyes closed, minimally interactive, responds only to direct questioning, requests not to be bothered, expresses druze ideation NEUROLOGICAL: Cranial nerves II-XII grossly intact. Motor is 5/5 in bilateral upper and lower extremities proximal to distal. No sensory deficits. HEENT: Face is symmetric. Pupils are equal and reactive. Extraocular movements are intact. NECK: Supple. No JVD. No thyromegaly. No submental, submandibular, pre- /postauricular, occipital or supraclavicular lymphadenopathy. CHEST: Normal chest expansion. No Telemetry. LUNGS: Absence of any rales, rhonchi or any wheezing. CARDIOVASCULAR: Regular. S1 and S2 normal. No appreciable rubs, murmurs or gallops. ABDOMEN: Soft, nontender, and nondistended. There is no rebound, voluntary guarding, or rigidity. : Deferred. No [place]. EXTREMITIES: Non-edematous and not cyanotic. No clubbing. Good capillary refill. SKIN: lower ext petechiae Psych: Flat affect, withdrawn, druze preoccupation, minimally responsive Assessment 1. Neutropenia. White blood count 2.4 with absolute neutrophil count more than 1. 2. Anemia. Hemoglobin level 10.0 g/deciliter 3. Thrombocytopenia. Platelet count 42K. 4. Change mental status 5. Diabetes mellitus 6. Which time viral virus infection Plan 1. This patient count is stable. There is no need for any investigation at this time. No need for blood product transfusion. There is no need for bone marrow biopsy at this time As there was some clumping of the platelet with manual platelet count around 60K. 2. There was hypersegmented neutrophils. This patient to Continue on folic acid 1 mg p.o. daily and vitamin B12 1000 mcg p.o. daily. 3. Peripheral blood smear showed vacuolation inside the white cell consistent with infection. 4. There was no fragment cell or schistocytes. This could rule out TTP. 5. I do not think this patient should be treated at this time. If this patient stable she could be discharged and follow-up with me as outpatient. If this patient continues to have pancytopenia in the next 2 weeks this patient will need bone marrow biopsy to be done. Vitals/Labs Vital Signs Date Time Temp Pulse Resp B/P (MAP) Pulse Ox O2 Delivery O2 Flow Rate FiO2 10/27/25 12:00 98.1 81 17 106/62 99 Room Air 10/26/25 20:00 0 21 Laboratory Tests 10/27/25 04:05 Medications Current Medications Ondansetron HCl 4 mg ONCE ONCE IVP Last administered on 10/22/25at 06:45; Start 10/22/25 at 06:30; Stop 10/22/25 at 06:31; Status DC Acetaminophen 650 mg Q4H PRN PO Last administered on 10/24/25at 01:16; Start 10/22/25 at 12:30; Stop 11/21/25 at 12:29 Acetaminophen 650 mg Q6H PRN PO; Start 10/22/25 at 12:30; Stop 11/21/25 at 12:29 Ondansetron HCl 4 mg Q6H PRN IVP Last administered on 10/22/25at 16:14; Start 10/22/25 at 12:30; Stop 11/21/25 at 12:29 Sodium Chloride 1,000 ml @ 75 mls/hr [id number] IV Last administered on 10/26/25at 09:15; Start 10/22/25 at 12:30; Stop 11/21/25 at 12:29 Ceftriaxone Sodium 1 gm Q24H IVPB Last administered on 10/22/25at 14:59; Start 10/22/25 at 12:30; Stop 10/24/25 at 07:18; Status DC Quetiapine Fumarate 100 mg ONCE ONCE PO Last administered on 10/22/25at 15:17; Start 10/22/25 at 14:00; Stop 10/22/25 at 14:02; Status DC Quetiapine Fumarate 100 mg HS PO Last administered on 10/26/25at 21:00; Start 10/23/25 at 21:00; Stop 11/22/25 at 20:59 Pharmacy Profile Note ONCE MISC; Start 10/22/25 at 14:00; Stop 10/22/25 at 19:24; Status DC Enoxaparin Sodium 40 mg DAILY SQ Last administered on 10/23/25at 08:29; Start 10/23/25 at 09:00; Stop 10/23/25 at 14:56; Status DC Hydralazine HCl 10 mg Q6H PRN IV; Start 10/22/25 at 17:00; Stop 11/21/25 at 16:59 Ceftriaxone Sodium 1 gm Q24H IVPB Last administered on 10/27/25at 09:13; Start 10/24/25 at 09:00; Stop 11/03/25 at 08:59 Potassium Chloride 100 ml @ 100 mls/hr AD PRN IV; Start 10/25/25 at 08:30; Stop 11/24/25 at 08:29 Potassium Chloride 20 meq AD PRN PO; Start 10/25/25 at 08:30; Stop 11/24/25 at 08:29 Potassium Chloride 20 meq AD PRN PO Last administered on 10/27/25at 11:09; Start 10/25/25 at 08:30; Stop 11/24/25 at 08:29 Haloperidol 5 mg Q6H PRN PO; Start 10/25/25 at 08:30; Stop 11/24/25 at 08:29 Diphenhydramine HCl 25 mg Q6H PRN PO Last administered on 10/25/25at 15:02; Start 10/25/25 at 08:30; Stop 11/24/25 at 08:29 Folic Acid 1 mg DAILY PO Last administered on 10/27/25at 09:13; Start 10/26/25 at 09:00; Stop 11/25/25 at 08:59 Vitamin B Complex 1,000 mcg DAILY PO Last administered on 10/27/25at 09:13; Start 10/26/25 at 09:00; Stop 11/25/25 at 08:59 Iohexol 75 ml STK-MED ONCE IV; Start 10/26/25 at 17:23; Stop 10/26/25 at 17:23; Status DC KATHERYN BROWN MD Oct 27, 2025 14:41
[2025-10-28] VITALS (8 sets, daily range): BP systolic 126–152; BP diastolic 59–80; PULSE 60–94; RESP 17–20; TEMP 97.8–98.6; O2SAT 98
[2025-10-28 04:24] LABS: ASPARTATE AMINOTRANSFERASE 22.0 U/L (10-37); CREATININE 0.5 mg/dL (0.5-1.0); GLOMERULAR FILTR. RATE CALC 112.0 mL/min (>90); GLUCOSE,RANDOM 111.0 mg/dL (70-105); SODIUM SERUM 142.0 mmol/L (136-145); TOTAL PROTEIN, SERUM 5.6 g/dL (6.0-8.3); UREA NITROGEN, BLOOD 6.0 mg/dL (7-18)
[2025-10-28 04:25] LABS: IMMATURE GRANULOCYTE ABSOLUTE 0.04 K/uL (0-1); NUCLEATED RED BLOOD CELLS 0.0 % (0.0-0.19); PLATELET COUNT (AUTO) 59 K/uL (130-400); RED BLOOD CELL COUNT(AUTO) 3.47 MIL/uL (4.00-5.50); RED CELL DISTRIBUTION WIDTH 13.5 % (11.0-15.5); WHITE BLOOD COUNT (AUTO) 2.1 K/uL (4.8-10.8)
--- NOTE | 2025-10-28 08:49 | PN ---
[facility] PROGRESS NOTE Date of Service: Oct 28, 2025 Time of Service: 08:49 SUBJECTIVE: HISTORY OF PRESENT ILLNESS: The patient is a 55-year-old female with a history of diabetes mellitus (noncompliant), anxiety, and depression, who presented to the ED for altered mental status. She has not taken her prescribed psychiatric medications (sertraline 200 mg nightly, quetiapine 100 mg nightly, prazosin 1 mg nightly, bupropion XL 300 mg nightly) for the past four days, reportedly due to a desire to avoid "drugs in her body." On my evaluation, the patient was awake but minimally interactive, kept her eyes closed, and repeatedly stated she was thirsty and did not want to be bothered, expressing lutheran ideation ("wants the Holy Spirit to purge her"). She was initially being considered for psychiatric admission, but laboratory evaluation revealed pancytopenia with severe thrombocytopenia (WBC 2.52.7, Hgb 11.110.7, Hct 33.331.9, platelets 4743), raising concern for a primary hematologic process such as thrombotic thrombocytopenic purpura (TTP). During her ED stay, she was intermittently uncooperative, at one point locking herself in the bathroom and requiring security assistance. She was subsequently referred to the hospitalist service for further evaluation and management of her cytopenias and altered mental status. 10/23/2025: Patient was seen and evaluated bedside this morning. she is awake, alert, agitated and confused, currently on 1 on 1 sitter. Morning labs showed white count 2.9, H&H 11.7, 35respectively, platelet count 40, PT 11.2, INR 1.06. As per tele psych recommendations her psychiatry medications are on hold except for Seroquel 100 mg for mood stabilization/psychosis, Haldol5 mg p.o. q.6 PRN for agitation. Patient might need psych admission as she is endorsing suicidal ideation, command hallucination, presently manic. Hematology was consulted for f urther evaluation of pancytopenia. 10/24/2025: Patient was evaluated bedside this morning. Patient has been agitated and looks confused. However she is more cooperative today. She has been hallucinating and is on one-to-one observation. Labs remarkable for WBC 3.1, hemoglobin 10.7, platelets 45, potassium 3.4. Hematology has been consulted for pancytopenia. She has been agitated and benefitted hallucinating. She do have a suicidal ideation and still remains confused. Telepsych recommended to continue Seroquel 100 mg HS and keep Haldol 5 mg q.6 PRN along with [id number] mg. Patient needs inpatient psych admission after medically stable. Rest of the plan as discussed below. 10/25/2025: Patient was seen and evaluated bedside this morning, no family at bedside. Patient has been agitated, confused and paranoid. Patient has been hallucinating and is on one-to-one observation. Morning Labs white count 3.9, H&H 10.9, 32, platelets 37. Hematology has been consulted for pancytopenia. We will get ultrasound right upper quadrant to check for liver cirrhosis. She do have a suicidal ideation and still remains confused. Telepsych recommended to continue Seroquel 100 mg HS and keep Haldol 5 mg q.6 PRN along with [id number] mg. Patient needs inpatient psych admission after medically stable. Rest of the plan as discussed below. 10/26/2025: Patient was seen and evaluated bedside this morning, no family at bedside. Patient has been hallucinating and continues on one-to-one observation. Morning labs revealed white count 3, H and H 9.8, 30.6 respectively, platelets 34, sodium 141, potassium 3.5. Ultrasound abdomen revealed mild hepatic steatosis with liver size measuring 14.5 cm, pending CT abdomen. Dr. Mayo recommended starting folic acid1 mg p.o. daily, vitamin B12 1000 mcg daily due to hypersegmented neutrophils on peripheral smear. He said the pancytopenia could be multifactorial due to antipsychotic medications, Gwendolyn bar virus infection, said no need for bone marrow biopsy to be done. He suggested giving IVIG1 g/kg daily for2 days could help in this case. Patient needs inpatient psych admission after medically stable. Rest of the plan as discussed below. 10/27/2025: Patient was seen and evaluated bedside this morning, no family at bedside. Patient has been hallucinating and continues on one-to-one observation. Morning labs revealed white count 2.4, H&H 10, 30.6 respectively, platelets 42, sodium 142, potassium 3.4. CT abdomen showed hepatosplenomegaly with hepatic steatosis. No focal hepatic lesions. Dilated portal/splenic vein-likely represents portal hypertension. No ascites. Patient needs inpatient psych admission after medically stable. Rest of the plan as discussed below. REVIEW OF SYSTEMS CONSTITUTIONAL: Denies fevers, chills, or night sweats. No unintentional weight loss reported. NEUROLOGICAL: Denies headache, amaurosis fugax, motor weakness, sensory deficit, vertigo/spinning sensation, gait abnormalities, or tremors. ENT: No hearing loss, otalgia, otorrhea, rhinitis, rhinorrhea, hoarseness, or sore throat. CARDIOVASCULAR: Denies any exertional angina, dyspnea on exertion, orthopnea, paroxysmal nocturnal dyspnea, palpitations, life-threatening arrhythmias, claudication. PULMONARY: Denies any shortness of breath, cough, phlegm/sputum, hemoptysis, pleuritic chest pain. SLEEP: Denies morning headaches, daytime somnolence or napping. Denies difficulty falling asleep, staying asleep, waking from sleep. Denies knowledge of snoring. GASTROINTESTINAL: Denies any type of dysphagia to either liquids or solids. Denies nausea, vomiting, pyrosis, early satiety, abdominal pain, diarrhea, constipation, or changes in stool consistency or caliber. Denies coffee-ground emesis, hematemesis, hematochezia, or melanotic stools. GENITOURINARY: Denies frequency, urgency, nocturia, hematuria or incontinence (Storage/Irritative symptoms.) Low urinary stream, straining to void, urinary intermittency or hesitancy, splitting of the voiding stream, terminal dribbling. ENDOCRINOLOGIC: Denies polyuria, polydipsia, polyphagia or heat/cold intolerances. HEMATOLOGIC: Denies thrombophilia/previous clots, or coagulopathy/bleeding disorders. ONCOLOGIC: Denies personal history of malignancy. DERMATOLOGIC: Denies rashes or pruritus. PSYCHIATRIC: Denies any suicidal or homicidal ideation. Denies hallucinations. PHYSICAL EXAM GENERAL APPEARANCE: Awake, eyes closed, minimally interactive, responds only to direct questioning, requests not to be bothered, expresses lutheran ideation NEUROLOGICAL: Cranial nerves II-XII grossly intact. Motor is 5/5 in bilateral upper and lower extremities proximal to distal. No sensory deficits. HEENT: Face is symmetric. Pupils are equal and reactive. Extraocular movements are intact. NECK: Supple. No JVD. No thyromegaly. No submental, submandibular, pre- /postauricular, occipital or supraclavicular lymphadenopathy. CHEST: Normal chest expansion. No Telemetry. LUNGS: Absence of any rales, rhonchi or any wheezing. CARDIOVASCULAR: Regular. S1 and S2 normal. No appreciable rubs, murmurs or gallops. ABDOMEN: Soft, nontender, and nondistended. There is no rebound, voluntary guarding, or rigidity. : Deferred. No Clayton. EXTREMITIES: Non-edematous and not cyanotic. No clubbing. Good capillary refill. SKIN: lower ext petechiae Psych: Flat affect, withdrawn, lutheran preoccupation, minimally responsive Vital Signs (last 8hr) Date Time Temp Pulse Resp B/P (MAP) Pulse Ox O2 Delivery O2 Flow Rate FiO2 10/28/25 08:00 98.6 87 17 149/73 98 Room Air 10/28/25 04:00 98.2 86 18 126/68 97 Room Air LABS: Laboratory: Test 10/28/25 03:51 10/27/25 04:05 Range/Units White Blood Count 2.1 L 4.8-10.8 K/uL Red Blood Count 3.47 L 4.00-5.50 MIL/uL Hemoglobin 10.1 L 12.0-16.0 g/dL Hematocrit 31.4 L 36-48 % Mean Corpuscular Volume 90.5 79-99 fL Mean Corpuscular Hemoglobin 29.1 27.0-33.0 pg Mean Corpuscular Hemoglobin Concent 32.2 32.0-36.0 g/dL Red Cell Distribution Width 13.5 11.0-15.5 % Platelet Count 59 #L 130-400 K/uL Mean Platelet Volume 12.1 H 7.5-10.5 fL Immature Granulocyte % (Auto) 1.9 H 0-1 % Neutrophils (%) (Auto) 19.9 L 40.0-77.0 % Lymphocytes (%) (Auto) 34.8 21.0-51.0 % Monocytes (%) (Auto) 41.5 H 3.0-13.0 % Eosinophils (%) (Auto) 1.9 0.0-8.0 % Basophils (%) (Auto) 0.0 0.0-5.0 % Neutrophils # (Auto) 0.4 L 1.8-7.7 K/uL Lymphocytes # (Auto) 0.7 L 1.0-4.8 K/uL Monocytes # (Auto) 0.9 0.1-1.0 K/uL Eosinophils # (Auto) 0.04 0.00-0.70 K/uL Basophils # (Auto) 0.00 0.00-0.20 K/uL Absolute Immature Granulocyte (auto 0.04 0-1 K/uL Nucleated Red Blood Cells 0.0 0.0-0.19 % Sodium Level 142 136-145 mmol/L Potassium Level 3.4 L 3.5-5.1 mmol/L Chloride Level 109 101-111 mmol/L Carbon Dioxide Level 27 21-32 mmol/L Blood Urea Nitrogen 6 L 7-18 mg/dL Creatinine 0.5 0.5-1.0 mg/dL Glomerular Filtration Rate Calc 112 >90 mL/min Random Glucose 111 H 70-105 mg/dL Total Calcium 8.0 L 8.5-10.1 mg/dL Total Bilirubin 0.5 # 0.2-1.0 mg/dL Aspartate Amino Transf (AST/SGOT) 22 10-37 U/L Alanine Aminotransferase (ALT/SGPT) 29 # 12-78 U/L Alkaline Phosphatase 62 50-136 U/L Total Protein 5.6 L 6.0-8.3 g/dL Albumin 2.5 L 3.5-5.0 g/dL Segmented Neutrophils % 22 L 40-70 % Lymphocytes % (Manual) 42 22-44 % Monocytes % (Manual) 35 H 2-9 % Eosinophils % (Manual) 1 1-6 % Differential Comment MANUAL DIFFERENTIAL White Cell Morphology Comment REACTIVE LYMPHS 1+ Platelet Morphology Comment See comments Red Blood Cell Morphology See comments Current Medications Medications (Trade) Dose Ordered Sig/Michael Route PRN Reason Start Time Stop Time Status Last Admin Dose Admin Acetaminophen (TYLenol 325MG TAB) 650 mg Q4H PRN PO TEMPERATURE GREATER THAN 101.5 10/22/25 12:30 11/21/25 12:29 10/24/25 01:16 650 MG Acetaminophen (TYLenol 325MG TAB) 650 mg Q6H PRN PO MILD PAIN (1-3) 10/22/25 12:30 11/21/25 12:29 Ceftriaxone Sodium (ROCEphine 1G INJ) 1 gm Q24H IVPB 10/22/25 12:30 10/24/25 07:18 DC 10/22/25 14:59 1 GM Ceftriaxone Sodium (ROCEphine 1G INJ) 1 gm Q24H IVPB 10/24/25 09:00 11/03/25 08:59 10/27/25 09:13 1 GM Diphenhydramine HCl (BENAdryl CAP) 25 mg Q6H PRN PO AGITATION 10/25/25 08:30 11/24/25 08:29 10/25/25 15:02 25 MG Enoxaparin Sodium (Lovenox) 40 mg DAILY SQ 10/23/25 09:00 10/23/25 14:56 DC 10/23/25 08:29 40 MG Folic Acid (FOLic ACID 1 MG TABLET) 1 mg DAILY PO 10/26/25 09:00 11/25/25 08:59 10/27/25 09:13 1 MG Haloperidol (Haldol) 5 mg Q6H PRN PO ANXIETY/AGITATION 10/25/25 08:30 11/24/25 08:29 Hydralazine HCl (APRESOLine 20MG INJ) 10 mg Q6H PRN IV ADMINISTER FOR SBP > 160 10/22/25 17:00 11/21/25 16:59 Ondansetron HCl (zoFRAN 4MG INJ) 4 mg Q6H PRN IVP NAUSEA/VOMITING 10/22/25 12:30 11/21/25 12:29 10/22/25 16:14 4 MG Pharmacy Profile Note (Pharmacy Communication) ONCE MISC 10/22/25 14:00 10/22/25 19:24 DC Potassium Chloride 100 ml @ 100 mls/hr AD PRN IV POTASSIUM PROTOCOL 10/25/25 08:30 11/24/25 08:29 Potassium Chloride (K-Dur/Klor-Con 20meq) 20 meq AD PRN PO POTASSIUM PROTOCOL 10/25/25 08:30 11/24/25 08:29 10/28/25 06:09 20 MEQ Potassium Chloride (KCl 10% Elixir 20meq/15ml) 20 meq AD PRN PO POTASSIUM PROTOCOL 10/25/25 08:30 11/24/25 08:29 Quetiapine Fumarate (SEROquel 100 mg TAB) 100 mg HS PO 10/23/25 21:00 11/22/25 20:59 10/27/25 20:50 100 MG Sodium Chloride 1,000 ml @ 75 mls/hr [id number] IV 10/22/25 12:30 11/21/25 12:29 10/26/25 09:15 75 MLS/HR Vitamin B Complex (Vitamin B-12) 1,000 mcg DAILY PO 10/26/25 09:00 11/25/25 08:59 10/27/25 09:13 1,000 MCG DIAGNOSTICS / RADIOLOGY: [ ] ASSESSMENT: Pancytopenia with severe thrombocytopenia and neutropenia Altered mental status (AMS) Medication noncompliance/withdrawal Bipolar1 disorder with psychotic features History of depression, PTSD, anxiety Mild metabolic derangements Mild UTI vs. asymptomatic bacteriuria PLAN: Pancytopenia with severe thrombocytopenia and neutropenia - WBC 2.52.7, Plt 4743, Hgb 11.110.7, ANC 0.8 - peripheral blood smear showed red blood cells to be normocytic normochromic. There was no fragments cell or schistocyte. There is no teardrop cells. There is no rouleaux phenomena. There is no pelger-Huet cell. Red cells with no blast. - platelets decreased in number, normal size, some clumping of platelets with manual platelet site count around 60 K - there was hypersegmented neutrophils, patient was started on folic acid1 mg p.o. daily and vitamin B12 1000 mcg p.o. daily - the pancytopenia could be multifactorial, IVIG1 g/kg daily for2 days could help as per Heme-Onc - Transfuse platelets only if active bleeding or <10K, or if invasive procedures needed (per hematology guidance) - Daily CBC to trend - hematology on board, we will continue to follow their recommendations. Altered Mental Status - Monitor neuro status closely - Repeat neuro exam q24h - MRI brain if mental status does not improve or if new focal deficits develop (per CT recommendation) - Correct metabolic derangements as indicated - Monitor for infection/sepsis given neutropenia Bipolar1 disorder with psychotic features History of depression, PTSD, anxiety - psychiatry recommended to hold Zoloft, Wellbutrin, Ativan. Start her on Seroquel 100 mg daily and Haldol 5 mg per oral/IM and [id number] mg per oral/IM q.6 hour PRN for agitation. - Monitor for withdrawal symptoms (serotonin discontinuation, antipsychotic withdrawal, bupropion) - Reinitiate home psych meds as appropriate, in collaboration with psychiatry and after medical clearance Infection Prophylaxis - Reverse isolation/neutropenic precautions if ANC <500 or as per hospital protocol - Monitor for fever/infection; low threshold for empiric antibiotics if febrile or septic Supportive Care - IV fluids as needed for hydration - Monitor electrolytes, glucose - DVT prophylaxis with SCDs - Fall precautions ANGELA MCCLAIN MD Oct 28, 2025 08:49
--- NOTE | 2025-10-28 09:06 | PN ---
The patient is a 55-year-old female with a history of diabetes mellitus (noncompliant), anxiety, and depression, who presented to the ED for altered mental status. She has not taken her prescribed psychiatric medications (sertraline 200 mg nightly, quetiapine 100 mg nightly, prazosin 1 mg nightly, bupropion XL 300 mg nightly) for the past four days, reportedly due to a desire to avoid "drugs in her body." On my evaluation, the patient was awake but minimally interactive, kept her eyes closed, and repeatedly stated she was thirsty and did not want to be bothered, expressing cheondoism ideation ("wants the Holy Spirit to purge her"). She was initially being considered for psychiatric admission, but laboratory evaluation revealed pancytopenia with severe thrombocytopenia (WBC 2.52.7, Hgb 11.110.7, Hct 33.331.9, platelets 4743), raising concern for a primary hematologic process such as thrombotic thrombocytopenic purpura (TTP). During her ED stay, she was intermittently uncooperative, at one point locking herself in the bathroom and requiring security assistance. She was subsequently referred to the hospitalist service for further evaluation and management of her cytopenias and altered mental status. ] Peripheral blood smear was evaluated. There was no blasts could be seen. There is not much abnormality except pancytopenia which look like drug-induced. White blood count 3.0 with normal manual differentiation. Hemoglobin 9.8 g/deciliter with platelets 34K. PHYSICAL EXAM GENERAL APPEARANCE: Awake, eyes closed, minimally interactive, responds only to direct questioning, requests not to be bothered, expresses cheondoism ideation NEUROLOGICAL: Cranial nerves II-XII grossly intact. Motor is 5/5 in bilateral upper and lower extremities proximal to distal. No sensory deficits. HEENT: Face is symmetric. Pupils are equal and reactive. Extraocular movements are intact. NECK: Supple. No JVD. No thyromegaly. No submental, submandibular, pre- /postauricular, occipital or supraclavicular lymphadenopathy. CHEST: Normal chest expansion. No Telemetry. LUNGS: Absence of any rales, rhonchi or any wheezing. CARDIOVASCULAR: Regular. S1 and S2 normal. No appreciable rubs, murmurs or gallops. ABDOMEN: Soft, nontender, and nondistended. There is no rebound, voluntary guarding, or rigidity. : Deferred. No Clayton. EXTREMITIES: Non-edematous and not cyanotic. No clubbing. Good capillary refill. SKIN: lower ext petechiae Psych: Flat affect, withdrawn, cheondoism preoccupation, minimally responsive Assessment 1. Neutropenia. White blood count 2.4 with absolute neutrophil count more than 1. 2. Anemia. Hemoglobin level 10.0 g/deciliter 3. Thrombocytopenia. Platelet count 42K. 4. Change mental status 5. Diabetes mellitus 6. Which time viral virus infection Plan 1. Peripheral blood smear continue to show monocytosis is high. This could be telling us that the bone marrow is recovering or it could be just its primary monocytosis. I will ask for flow cytometry and peripheral blood to be done As there was some clumping of the platelet with manual platelet count around 60K. 2. There was hypersegmented neutrophils. This patient to Continue on folic acid 1 mg p.o. daily and vitamin B12 1000 mcg p.o. daily. 3. Peripheral blood smear showed vacuolation inside the white cell consistent with infection. Patient to continue antibiotic treatment as per primary 4. There was no fragment cell or schistocytes. This could rule out TTP. 5. I do not think this patient should be treated at this time. If this patient stable she could be discharged and follow-up with me as outpatient. If this patient continues to have pancytopenia in the next 2 weeks this patient will need bone marrow biopsy to be done. Vitals/Labs Vital Signs Date Time Temp Pulse Resp B/P (MAP) Pulse Ox O2 Delivery O2 Flow Rate FiO2 10/28/25 08:00 98.6 87 17 149/73 98 Room Air 10/27/25 20:00 0 21 Laboratory Tests 10/28/25 03:51 Medications Current Medications Ondansetron HCl 4 mg ONCE ONCE IVP Last administered on 10/22/25at 06:45; Start 10/22/25 at 06:30; Stop 10/22/25 at 06:31; Status DC Acetaminophen 650 mg Q4H PRN PO Last administered on 10/24/25at 01:16; Start 10/22/25 at 12:30; Stop 11/21/25 at 12:29 Acetaminophen 650 mg Q6H PRN PO; Start 10/22/25 at 12:30; Stop 11/21/25 at 12:29 Ondansetron HCl 4 mg Q6H PRN IVP Last administered on 10/22/25at 16:14; Start 10/22/25 at 12:30; Stop 11/21/25 at 12:29 Sodium Chloride 1,000 ml @ 75 mls/hr [id number] IV Last administered on 10/26/25at 09:15; Start 10/22/25 at 12:30; Stop 11/21/25 at 12:29 Ceftriaxone Sodium 1 gm Q24H IVPB Last administered on 10/22/25at 14:59; Start 10/22/25 at 12:30; Stop 10/24/25 at 07:18; Status DC Quetiapine Fumarate 100 mg ONCE ONCE PO Last administered on 10/22/25at 15:17; Start 10/22/25 at 14:00; Stop 10/22/25 at 14:02; Status DC Quetiapine Fumarate 100 mg HS PO Last administered on 10/27/25at 20:50; Start 10/23/25 at 21:00; Stop 11/22/25 at 20:59 Pharmacy Profile Note ONCE MISC; Start 10/22/25 at 14:00; Stop 10/22/25 at 19:24; Status DC Enoxaparin Sodium 40 mg DAILY SQ Last administered on 10/23/25at 08:29; Start 10/23/25 at 09:00; Stop 10/23/25 at 14:56; Status DC Hydralazine HCl 10 mg Q6H PRN IV; Start 10/22/25 at 17:00; Stop 11/21/25 at 16:59 Ceftriaxone Sodium 1 gm Q24H IVPB Last administered on 10/28/25at 09:01; Start 10/24/25 at 09:00; Stop 11/03/25 at 08:59 Potassium Chloride 100 ml @ 100 mls/hr AD PRN IV; Start 10/25/25 at 08:30; Stop 11/24/25 at 08:29 Potassium Chloride 20 meq AD PRN PO; Start 10/25/25 at 08:30; Stop 11/24/25 at 08:29 Potassium Chloride 20 meq AD PRN PO Last administered on 10/28/25at 09:00; Start 10/25/25 at 08:30; Stop 11/24/25 at 08:29 Haloperidol 5 mg Q6H PRN PO; Start 10/25/25 at 08:30; Stop 11/24/25 at 08:29 Diphenhydramine HCl 25 mg Q6H PRN PO Last administered on 10/25/25at 15:02; Start 10/25/25 at 08:30; Stop 11/24/25 at 08:29 Folic Acid 1 mg DAILY PO Last administered on 10/28/25at 09:00; Start 10/26/25 at 09:00; Stop 11/25/25 at 08:59 Vitamin B Complex 1,000 mcg DAILY PO Last administered on 10/28/25at 09:00; Start 10/26/25 at 09:00; Stop 11/25/25 at 08:59 Iohexol 75 ml STK-MED ONCE IV; Start 10/26/25 at 17:23; Stop 10/26/25 at 17:23; Status DC KATHERYN BROWN MD Oct 28, 2025 09:06
[2025-10-28] MEDS: HALOPERIDOL 5 MG TABLET PO PRN (14:24)
--- NOTE | 2025-10-28 15:47 | PN ---
[facility] PROGRESS NOTE Date of Service: Oct 28, 2025 Time of Service: 15:37 SUBJECTIVE: HISTORY OF PRESENT ILLNESS: The patient is a 55-year-old female with a history of diabetes mellitus (noncompliant), anxiety, and depression, who presented to the ED for altered mental status. She has not taken her prescribed psychiatric medications (sertraline 200 mg nightly, quetiapine 100 mg nightly, prazosin 1 mg nightly, bupropion XL 300 mg nightly) for the past four days, reportedly due to a desire to avoid "drugs in her body." On my evaluation, the patient was awake but minimally interactive, kept her eyes closed, and repeatedly stated she was thirsty and did not want to be bothered, expressing mandaen ideation ("wants the Holy Spirit to purge her"). She was initially being considered for psychiatric admission, but laboratory evaluation revealed pancytopenia with severe thrombocytopenia (WBC 2.52.7, Hgb 11.110.7, Hct 33.331.9, platelets 4743), raising concern for a primary hematologic process such as thrombotic thrombocytopenic purpura (TTP). During her ED stay, she was intermittently uncooperative, at one point locking herself in the bathroom and requiring security assistance. She was subsequently referred to the hospitalist service for further evaluation and management of her cytopenias and altered mental status. 10/23/2025: Patient was seen and evaluated bedside this morning. she is awake, alert, agitated and confused, currently on 1 on 1 sitter. Morning labs showed white count 2.9, H&H 11.7, 35respectively, platelet count 40, PT 11.2, INR 1.06. As per tele psych recommendations her psychiatry medications are on hold except for Seroquel 100 mg for mood stabilization/psychosis, Haldol5 mg p.o. q.6 PRN for agitation. Patient might need psych admission as she is endorsing suicidal ideation, command hallucination, presently manic. Hematology was consulted for f urther evaluation of pancytopenia. 10/24/2025: Patient was evaluated bedside this morning. Patient has been agitated and looks confused. However she is more cooperative today. She has been hallucinating and is on one-to-one observation. Labs remarkable for WBC 3.1, hemoglobin 10.7, platelets 45, potassium 3.4. Hematology has been consulted for pancytopenia. She has been agitated and benefitted hallucinating. She do have a suicidal ideation and still remains confused. Telepsych recommended to continue Seroquel 100 mg HS and keep Haldol 5 mg q.6 PRN along with [id number] mg. Patient needs inpatient psych admission after medically stable. Rest of the plan as discussed below. 10/25/2025: Patient was seen and evaluated bedside this morning, no family at bedside. Patient has been agitated, confused and paranoid. Patient has been hallucinating and is on one-to-one observation. Morning Labs white count 3.9, H&H 10.9, 32, platelets 37. Hematology has been consulted for pancytopenia. We will get ultrasound right upper quadrant to check for liver cirrhosis. She do have a suicidal ideation and still remains confused. Telepsych recommended to continue Seroquel 100 mg HS and keep Haldol 5 mg q.6 PRN along with [id number] mg. Patient needs inpatient psych admission after medically stable. Rest of the plan as discussed below. 10/26/2025: Patient was seen and evaluated bedside this morning, no family at bedside. Patient has been hallucinating and continues on one-to-one observation. Morning labs revealed white count 3, H and H 9.8, 30.6 respectively, platelets 34, sodium 141, potassium 3.5. Ultrasound abdomen revealed mild hepatic steatosis with liver size measuring 14.5 cm, pending CT abdomen. Dr. Mayo recommended starting folic acid1 mg p.o. daily, vitamin B12 1000 mcg daily due to hypersegmented neutrophils on peripheral smear. He said the pancytopenia could be multifactorial due to antipsychotic medications, Gwendolyn bar virus infection, said no need for bone marrow biopsy to be done. He suggested giving IVIG1 g/kg daily for2 days could help in this case. Patient needs inpatient psych admission after medically stable. Rest of the plan as discussed below. 10/27/2025: Patient was seen and evaluated bedside this morning, no family at bedside. Patient has been hallucinating and continues on one-to-one observation. Morning labs revealed white count 2.4, H&H 10, 30.6 respectively, platelets 42, sodium 142, potassium 3.4. CT abdomen showed hepatosplenomegaly with hepatic steatosis. No focal hepatic lesions. Dilated portal/splenic vein-likely represents portal hypertension. No ascites. Patient needs inpatient psych admission after medically stable. Rest of the plan as discussed below. 10/28/2025: Patient was seen and evaluated bedside this morning, no family at bedside. Patient looks hemodynamically stable and continues on one-to-one observation. Morning labs reveal white count 2.1, H&H 10.1, 31.4 respectively, platelets 59, BUN 6, creatinine 0.5. Heme-Onc recommended not to treat pancytopenia at this time, wants the patient to follow up outpatient in 2 weeks. If the patient continues to have pancytopenia in the next2 weeks this patient will need bone marrow biopsy to be done. Pending tropical inpatient evaluation. Rest of the plan as discussed below. REVIEW OF SYSTEMS CONSTITUTIONAL: Denies fevers, chills, or night sweats. No unintentional weight loss reported. NEUROLOGICAL: Denies headache, amaurosis fugax, motor weakness, sensory deficit, vertigo/spinning sensation, gait abnormalities, or tremors. ENT: No hearing loss, otalgia, otorrhea, rhinitis, rhinorrhea, hoarseness, or sore throat. CARDIOVASCULAR: Denies any exertional angina, dyspnea on exertion, orthopnea, paroxysmal nocturnal dyspnea, palpitations, life-threatening arrhythmias, claudication. PULMONARY: Denies any shortness of breath, cough, phlegm/sputum, hemoptysis, pleuritic chest pain. SLEEP: Denies morning headaches, daytime somnolence or napping. Denies difficulty falling asleep, staying asleep, waking from sleep. Denies knowledge of snoring. GASTROINTESTINAL: Denies any type of dysphagia to either liquids or solids. Denies nausea, vomiting, pyrosis, early satiety, abdominal pain, diarrhea, constipation, or changes in stool consistency or caliber. Denies coffee-ground emesis, hematemesis, hematochezia, or melanotic stools. GENITOURINARY: Denies frequency, urgency, nocturia, hematuria or incontinence (Storage/Irritative symptoms.) Low urinary stream, straining to void, urinary intermittency or hesitancy, splitting of the voiding stream, terminal dribbling. ENDOCRINOLOGIC: Denies polyuria, polydipsia, polyphagia or heat/cold intolerances. HEMATOLOGIC: Denies thrombophilia/previous clots, or coagulopathy/bleeding disorders. ONCOLOGIC: Denies personal history of malignancy. DERMATOLOGIC: Denies rashes or pruritus. PSYCHIATRIC: Denies any suicidal or homicidal ideation. Denies hallucinations. PHYSICAL EXAM GENERAL APPEARANCE: Awake, eyes closed, minimally interactive, responds only to direct questioning, requests not to be bothered, expresses mandaen ideation NEUROLOGICAL: Cranial nerves II-XII grossly intact. Motor is 5/5 in bilateral upper and lower extremities proximal to distal. No sensory deficits. HEENT: Face is symmetric. Pupils are equal and reactive. Extraocular movements are intact. NECK: Supple. No JVD. No thyromegaly. No submental, submandibular, pre-/postauricular, occipital or supraclavicular lymphadenopathy. CHEST: Normal chest expansion. No Telemetry. LUNGS: Absence of any rales, rhonchi or any wheezing. CARDIOVASCULAR: Regular. S1 and S2 normal. No appreciable rubs, murmurs or gallops. ABDOMEN: Soft, nontender, and nondistended. There is no rebound, voluntary guarding, or rigidity. : Deferred. No Clayton. EXTREMITIES: Non-edematous and not cyanotic. No clubbing. Good capillary refill. SKIN: lower ext petechiae Psych: Flat affect, withdrawn, mandaen preoccupation, minimally responsive Vital Signs (last 8hr) Date Time Temp Pulse Resp B/P (MAP) Pulse Ox O2 Delivery O2 Flow Rate FiO2 10/28/25 12:00 98.2 91 19 136/59 99 Room Air 10/28/25 09:01 98 Room Air* 0 21 10/28/25 08:00 98.6 87 17 149/73 98 Room Air LABS: Laboratory: Test 10/28/25 03:51 10/27/25 04:05 Range/Units White Blood Count 2.1 L 4.8-10.8 K/uL Red Blood Count 3.47 L 4.00-5.50 MIL/uL Hemoglobin 10.1 L 12.0-16.0 g/dL Hematocrit 31.4 L 36-48 % Mean Corpuscular Volume 90.5 79-99 fL Mean Corpuscular Hemoglobin 29.1 27.0-33.0 pg Mean Corpuscular Hemoglobin Concent 32.2 32.0-36.0 g/dL Red Cell Distribution Width 13.5 11.0-15.5 % Platelet Count 59 #L 130-400 K/uL Mean Platelet Volume 12.1 H 7.5-10.5 fL Immature Granulocyte % (Auto) 1.9 H 0-1 % Neutrophils (%) (Auto) 19.9 L 40.0-77.0 % Lymphocytes (%) (Auto) 34.8 21.0-51.0 % Monocytes (%) (Auto) 41.5 H 3.0-13.0 % Eosinophils (%) (Auto) 1.9 0.0-8.0 % Basophils (%) (Auto) 0.0 0.0-5.0 % Neutrophils # (Auto) 0.4 L 1.8-7.7 K/uL Lymphocytes # (Auto) 0.7 L 1.0-4.8 K/uL Monocytes # (Auto) 0.9 0.1-1.0 K/uL Eosinophils # (Auto) 0.04 0.00-0.70 K/uL Basophils # (Auto) 0.00 0.00-0.20 K/uL Absolute Immature Granulocyte (auto 0.04 0-1 K/uL Nucleated Red Blood Cells 0.0 0.0-0.19 % Sodium Level 142 136-145 mmol/L Potassium Level 3.4 L 3.5-5.1 mmol/L Chloride Level 109 101-111 mmol/L Carbon Dioxide Level 27 21-32 mmol/L Blood Urea Nitrogen 6 L 7-18 mg/dL Creatinine 0.5 0.5-1.0 mg/dL Glomerular Filtration Rate Calc 112 >90 mL/min Random Glucose 111 H 70-105 mg/dL Total Calcium 8.0 L 8.5-10.1 mg/dL Total Bilirubin 0.5 # 0.2-1.0 mg/dL Aspartate Amino Transf (AST/SGOT) 22 10-37 U/L Alanine Aminotransferase (ALT/SGPT) 29 # 12-78 U/L Alkaline Phosphatase 62 50-136 U/L Total Protein 5.6 L 6.0-8.3 g/dL Albumin 2.5 L 3.5-5.0 g/dL Segmented Neutrophils % 22 L 40-70 % Lymphocytes % (Manual) 42 22-44 % Monocytes % (Manual) 35 H 2-9 % Eosinophils % (Manual) 1 1-6 % Differential Comment MANUAL DIFFERENTIAL White Cell Morphology Comment REACTIVE LYMPHS 1+ Platelet Morphology Comment See comments Red Blood Cell Morphology See comments Current Medications Medications (Trade) Dose Ordered Sig/Michael Route PRN Reason Start Time Stop Time Status Last Admin Dose Admin Acetaminophen (TYLenol 325MG TAB) 650 mg Q4H PRN PO TEMPERATURE GREATER THAN 101.5 10/22/25 12:30 11/21/25 12:29 10/24/25 01:16 650 MG Acetaminophen (TYLenol 325MG TAB) 650 mg Q6H PRN PO MILD PAIN (1-3) 10/22/25 12:30 11/21/25 12:29 Ceftriaxone Sodium (ROCEphine 1G INJ) 1 gm Q24H IVPB 10/22/25 12:30 10/24/25 07:18 DC 10/22/25 14:59 1 GM Ceftriaxone Sodium (ROCEphine 1G INJ) 1 gm Q24H IVPB 10/24/25 09:00 11/03/25 08:59 10/28/25 09:01 1 GM Diphenhydramine HCl (BENAdryl CAP) 25 mg Q6H PRN PO AGITATION 10/25/25 08:30 11/24/25 08:29 10/25/25 15:02 25 MG Enoxaparin Sodium (Lovenox) 40 mg DAILY SQ 10/23/25 09:00 10/23/25 14:56 DC 10/23/25 08:29 40 MG Folic Acid (FOLic ACID 1 MG TABLET) 1 mg DAILY PO 10/26/25 09:00 11/25/25 08:59 10/28/25 09:00 1 MG Haloperidol (Haldol) 5 mg Q6H PRN PO ANXIETY/AGITATION 10/25/25 08:30 11/24/25 08:29 10/28/25 14:24 5 MG Hydralazine HCl (APRESOLine 20MG INJ) 10 mg Q6H PRN IV ADMINISTER FOR SBP > 160 10/22/25 17:00 11/21/25 16:59 Ondansetron HCl (zoFRAN 4MG INJ) 4 mg Q6H PRN IVP NAUSEA/VOMITING 10/22/25 12:30 11/21/25 12:29 10/22/25 16:14 4 MG Pharmacy Profile Note (Pharmacy Communication) ONCE MISC 10/22/25 14:00 10/22/25 19:24 DC Potassium Chloride 100 ml @ 100 mls/hr AD PRN IV POTASSIUM PROTOCOL 10/25/25 08:30 11/24/25 08:29 Potassium Chloride (K-Dur/Klor-Con 20meq) 20 meq AD PRN PO POTASSIUM PROTOCOL 10/25/25 08:30 11/24/25 08:29 10/28/25 09:00 20 MEQ Potassium Chloride (KCl 10% Elixir 20meq/15ml) 20 meq AD PRN PO POTASSIUM PROTOCOL 10/25/25 08:30 11/24/25 08:29 Quetiapine Fumarate (SEROquel 100 mg TAB) 100 mg HS PO 10/23/25 21:00 11/22/25 20:59 10/27/25 20:50 100 MG Sodium Chloride 1,000 ml @ 75 mls/hr [id number] IV 10/22/25 12:30 11/21/25 12:29 10/26/25 09:15 75 MLS/HR Vitamin B Complex (Vitamin B-12) 1,000 mcg DAILY PO 10/26/25 09:00 11/25/25 08:59 10/28/25 09:00 1,000 MCG DIAGNOSTICS / RADIOLOGY: [ ] ASSESSMENT: Pancytopenia with severe thrombocytopenia and neutropenia Altered mental status (AMS) Medication noncompliance/withdrawal Bipolar1 disorder with psychotic features History of depression, PTSD, anxiety Mild metabolic derangements Mild UTI vs. asymptomatic bacteriuria PLAN: Pancytopenia with severe thrombocytopenia and neutropenia - WBC 2.52.7, Plt 4743, Hgb 11.110.7, ANC 0.8 - peripheral blood smear showed red blood cells to be normocytic normochromic. There was no fragments cell or schistocyte. There is no teardrop cells. There is no rouleaux phenomena. There is no pelger-Huet cell. Red cells with no blast. - platelets decreased in number, normal size, some clumping of platelets with manual platelet site count around 60 K - there was hypersegmented neutrophils, patient was started on folic acid1 mg p.o. daily and vitamin B12 1000 mcg p.o. daily - the pancytopenia could be multifactorial, IVIG1 g/kg daily for2 days could help as per Heme-Onc - Transfuse platelets only if active bleeding or <10K, or if invasive procedures needed (per hematology guidance) - Daily CBC to trend - hematology on board, we will continue to follow their recommendations. Altered Mental Status - Monitor neuro status closely - Repeat neuro exam q24h - MRI brain if mental status does not improve or if new focal deficits develop (per CT recommendation) - Correct metabolic derangements as indicated - Monitor for infection/sepsis given neutropenia Bipolar1 disorder with psychotic features History of depression, PTSD, anxiety - psychiatry recommended to hold Zoloft, Wellbutrin, Ativan. Start her on Seroquel 100 mg daily and Haldol 5 mg per oral/IM and Purvgveb50 mg per oral/IM q.6 hour PRN for agitation. - Monitor for withdrawal symptoms (serotonin discontinuation, antipsychotic withdrawal, bupropion) - Reinitiate home psych meds as appropriate, in collaboration with psychiatry and after medical clearance Infection Prophylaxis - Reverse isolation/neutropenic precautions if ANC <500 or as per hospital protocol - Monitor for fever/infection; low threshold for empiric antibiotics if febrile or septic Supportive Care - IV fluids as needed for hydration - Monitor electrolytes, glucose - DVT prophylaxis with SCDs - Fall precautions ATTESTATION BY PHYSICIAN I have seen and examined the patient. I reviewed the documentation, medical decision making, and treatment plan as noted by the resident physician above. I agree with the findings and plan of care. ELMIAR AHUJA MD, ADIL SHAH QUADRI MD Oct 28, 2025 15:47
[2025-10-29 04:31] LABS: IMMATURE GRANULOCYTE ABSOLUTE 0.04 K/uL (0-1); NUCLEATED RED BLOOD CELLS 0.0 % (0.0-0.19); PLATELET COUNT (AUTO) 57 K/uL (130-400); RED BLOOD CELL COUNT(AUTO) 3.91 MIL/uL (4.00-5.50); RED CELL DISTRIBUTION WIDTH 13.3 % (11.0-15.5); WHITE BLOOD COUNT (AUTO) 2.4 K/uL (4.8-10.8)
[2025-10-29 04:38] VITALS: BP 127/70; PULSE 99; RESP 16; TEMP 98.5
[2025-10-29 04:41] LABS: CREATININE 0.5 mg/dL (0.5-1.0); GLOMERULAR FILTR. RATE CALC 112.0 mL/min (>90); GLUCOSE,RANDOM 106.0 mg/dL (70-105); SODIUM SERUM 142.0 mmol/L (136-145); UREA NITROGEN, BLOOD 4.0 mg/dL (7-18)
[2025-10-29 05:04] LABS: LYMPHOCYTES % (MANUAL) 38 % (22-44); MAN.DIFF COMMENT-IMPRESSION MANUAL DIFFERENTIAL; MONOCYTES % (MANUAL) 46 % (2-9); SEGMENTED NEUTROPHILS % 16 % (40-70)
[2025-10-29 07:08] VITALS: BP 152/79; PULSE 90; RESP 16; TEMP 98
[2025-10-29 08:25] VITALS: O2SAT 96
--- NOTE | 2025-10-29 09:00 | NUR ---
LAB REQUEST DR. BROWN ON UNIT. REQUESTING FLOW CYTOMETRY BLOOD DRAW. PER LAB UNABLE TO COLLECT TODAY DUE TO NO DELIVERY SYSTEM OVER WEEKEND. PRIMARY TEAM INFORMED.
--- NOTE | 2025-10-29 09:11 | PN ---
The patient is a 55-year-old female with a history of diabetes mellitus (noncompliant), anxiety, and depression, who presented to the ED for altered mental status. She has not taken her prescribed psychiatric medications (sertraline 200 mg nightly, quetiapine 100 mg nightly, prazosin 1 mg nightly, bupropion XL 300 mg nightly) for the past four days, reportedly due to a desire to avoid "drugs in her body." On my evaluation, the patient was awake but minimally interactive, kept her eyes closed, and repeatedly stated she was thirsty and did not want to be bothered, expressing yazdanism ideation ("wants the Holy Spirit to purge her"). She was initially being considered for psychiatric admission Peripheral blood smear was evaluated. There was no blasts could be seen. There is not much abnormality except pancytopenia which look like drug-induced. White blood count 3.0 with normal manual differentiation. Hemoglobin 9.8 g/deciliter with platelets 34K. Patient is improved significantly. But the patient actually continued to have pancytopenia with monocytosis PHYSICAL EXAM GENERAL APPEARANCE: Awake, eyes closed, minimally interactive, responds only to direct questioning, requests not to be bothered, expresses yazdanism ideation NEUROLOGICAL: Cranial nerves II-XII grossly intact. Motor is 5/5 in bilateral upper and lower extremities proximal to distal. No sensory deficits. HEENT: Face is symmetric. Pupils are equal and reactive. Extraocular movements are intact. NECK: Supple. No JVD. No thyromegaly. No submental, submandibular, pre- /postauricular, occipital or supraclavicular lymphadenopathy. CHEST: Normal chest expansion. No Telemetry. LUNGS: Absence of any rales, rhonchi or any wheezing. CARDIOVASCULAR: Regular. S1 and S2 normal. No appreciable rubs, murmurs or gallops. ABDOMEN: Soft, nontender, and nondistended. There is no rebound, voluntary guarding, or rigidity. : Deferred. No Clayton. EXTREMITIES: Non-edematous and not cyanotic. No clubbing. Good capillary refill. SKIN: lower ext petechiae Psych: Flat affect, withdrawn, yazdanism preoccupation, minimally responsive Assessment 1. Neutropenia. There is monocytosis 2. Anemia. Hemoglobin level 10.0 g/deciliter 3. Thrombocytopenia. Platelet count 42K. 4. Change mental status 5. Diabetes mellitus 6. Which time viral virus infection Plan 1. Peripheral blood smear continue to show monocytosis is high. This could be telling us that the bone marrow is recovering or it could be just its primary monocytosis. I will ask for flow cytometry and peripheral blood to be done As there was some clumping of the platelet with manual platelet count around 60K. 2. There was hypersegmented neutrophils. This patient to Continue on folic acid 1 mg p.o. daily and vitamin B12 1000 mcg p.o. daily. 3. Peripheral blood smear showed vacuolation inside the white cell consistent with infection. Patient to continue antibiotic treatment as per primary 4. There was no fragment cell or schistocytes. This could rule out TTP. 5. I do not think this patient should be treated at this time. If this patient stable she could be discharged and follow-up with me as outpatient. Vitals/Labs Vital Signs Date Time Temp Pulse Resp B/P (MAP) Pulse Ox O2 Delivery O2 Flow Rate FiO2 10/29/25 08:25 96 Room Air* 0 21 10/29/25 07:08 98.1 90 16 152/79 Laboratory Tests 10/29/25 04:09 Medications Current Medications Ondansetron HCl 4 mg ONCE ONCE IVP Last administered on 10/22/25at 06:45; Start 10/22/25 at 06:30; Stop 10/22/25 at 06:31; Status DC Acetaminophen 650 mg Q4H PRN PO Last administered on 10/24/25at 01:16; Start 10/22/25 at 12:30; Stop 11/21/25 at 12:29 Acetaminophen 650 mg Q6H PRN PO; Start 10/22/25 at 12:30; Stop 11/21/25 at 12:29 Ondansetron HCl 4 mg Q6H PRN IVP Last administered on 10/22/25at 16:14; Start 10/22/25 at 12:30; Stop 11/21/25 at 12:29 Sodium Chloride 1,000 ml @ 75 mls/hr [id number] IV Last administered on 10/26/25at 09:15; Start 10/22/25 at 12:30; Stop 11/21/25 at 12:29 Ceftriaxone Sodium 1 gm Q24H IVPB Last administered on 10/22/25at 14:59; Start 10/22/25 at 12:30; Stop 10/24/25 at 07:18; Status DC Quetiapine Fumarate 100 mg ONCE ONCE PO Last administered on 10/22/25at 15:17; Start 10/22/25 at 14:00; Stop 10/22/25 at 14:02; Status DC Quetiapine Fumarate 100 mg HS PO Last administered on 10/28/25at 20:48; Start 10/23/25 at 21:00; Stop 11/22/25 at 20:59 Pharmacy Profile Note ONCE MISC; Start 10/22/25 at 14:00; Stop 10/22/25 at 19:24; Status DC Enoxaparin Sodium 40 mg DAILY SQ Last administered on 10/23/25at 08:29; Start 10/23/25 at 09:00; Stop 10/23/25 at 14:56; Status DC Hydralazine HCl 10 mg Q6H PRN IV; Start 10/22/25 at 17:00; Stop 11/21/25 at 16:59 Ceftriaxone Sodium 1 gm Q24H IVPB Last administered on 10/28/25at 09:01; Start 10/24/25 at 09:00; Stop 11/03/25 at 08:59 Potassium Chloride 100 ml @ 100 mls/hr AD PRN IV; Start 10/25/25 at 08:30; Stop 11/24/25 at 08:29 Potassium Chloride 20 meq AD PRN PO; Start 10/25/25 at 08:30; Stop 11/24/25 at 08:29 Potassium Chloride 20 meq AD PRN PO Last administered on 10/28/25at 09:00; Start 10/25/25 at 08:30; Stop 11/24/25 at 08:29 Haloperidol 5 mg Q6H PRN PO Last administered on 10/28/25at 14:24; Start 10/25/25 at 08:30; Stop 11/24/25 at 08:29 Diphenhydramine HCl 25 mg Q6H PRN PO Last administered on 10/25/25at 15:02; Start 10/25/25 at 08:30; Stop 11/24/25 at 08:29 Folic Acid 1 mg DAILY PO Last administered on 10/28/25at 09:00; Start 10/26/25 at 09:00; Stop 11/25/25 at 08:59 Vitamin B Complex 1,000 mcg DAILY PO Last administered on 10/28/25at 09:00; Start 10/26/25 at 09:00; Stop 11/25/25 at 08:59 Iohexol 75 ml STK-MED ONCE IV; Start 10/26/25 at 17:23; Stop 10/26/25 at 17:23; Status DC KATHERYN BROWN MD Oct 29, 2025 09:11
--- NOTE | 2025-10-29 10:54 | PN ---
[facility] PROGRESS NOTE Date of Service: Oct 29, 2025 Time of Service: 10:54 SUBJECTIVE: HISTORY OF PRESENT ILLNESS: The patient is a 55-year-old female with a history of diabetes mellitus (noncompliant), anxiety, and depression, who presented to the ED for altered mental status. She has not taken her prescribed psychiatric medications (sertraline 200 mg nightly, quetiapine 100 mg nightly, prazosin 1 mg nightly, bupropion XL 300 mg nightly) for the past four days, reportedly due to a desire to avoid "drugs in her body." On my evaluation, the patient was awake but minimally interactive, kept her eyes closed, and repeatedly stated she was thirsty and did not want to be bothered, expressing amish ideation ("wants the Holy Spirit to purge her"). She was initially being considered for psychiatric admission, but laboratory evaluation revealed pancytopenia with severe thrombocytopenia (WBC 2.52.7, Hgb 11.110.7, Hct 33.331.9, platelets 4743), raising concern for a primary hematologic process such as thrombotic thrombocytopenic purpura (TTP). During her ED stay, she was intermittently uncooperative, at one point locking herself in the bathroom and requiring security assistance. She was subsequently referred to the hospitalist service for further evaluation and management of her cytopenias and altered mental status. 10/23/2025: Patient was seen and evaluated bedside this morning. she is awake, alert, agitated and confused, currently on 1 on 1 sitter. Morning labs showed white count 2.9, H&H 11.7, 35respectively, platelet count 40, PT 11.2, INR 1.06. As per tele psych recommendations her psychiatry medications are on hold except for Seroquel 100 mg for mood stabilization/psychosis, Haldol5 mg p.o. q.6 PRN for agitation. Patient might need psych admission as she is endorsing suicidal ideation, command hallucination, presently manic. Hematology was consulted for f urther evaluation of pancytopenia. 10/24/2025: Patient was evaluated bedside this morning. Patient has been agitated and looks confused. However she is more cooperative today. She has been hallucinating and is on one-to-one observation. Labs remarkable for WBC 3.1, hemoglobin 10.7, platelets 45, potassium 3.4. Hematology has been consulted for pancytopenia. She has been agitated and benefitted hallucinating. She do have a suicidal ideation and still remains confused. Telepsych recommended to continue Seroquel 100 mg HS and keep Haldol 5 mg q.6 PRN along with [id number] mg. Patient needs inpatient psych admission after medically stable. Rest of the plan as discussed below. 10/25/2025: Patient was seen and evaluated bedside this morning, no family at bedside. Patient has been agitated, confused and paranoid. Patient has been hallucinating and is on one-to-one observation. Morning Labs white count 3.9, H&H 10.9, 32, platelets 37. Hematology has been consulted for pancytopenia. We will get ultrasound right upper quadrant to check for liver cirrhosis. She do have a suicidal ideation and still remains confused. Telepsych recommended to continue Seroquel 100 mg HS and keep Haldol 5 mg q.6 PRN along with [id number] mg. Patient needs inpatient psych admission after medically stable. Rest of the plan as discussed below. 10/26/2025: Patient was seen and evaluated bedside this morning, no family at bedside. Patient has been hallucinating and continues on one-to-one observation. Morning labs revealed white count 3, H and H 9.8, 30.6 respectively, platelets 34, sodium 141, potassium 3.5. Ultrasound abdomen revealed mild hepatic steatosis with liver size measuring 14.5 cm, pending CT abdomen. Dr. Mayo recommended starting folic acid1 mg p.o. daily, vitamin B12 1000 mcg daily due to hypersegmented neutrophils on peripheral smear. He said the pancytopenia could be multifactorial due to antipsychotic medications, Gwendolyn bar virus infection, said no need for bone marrow biopsy to be done. He suggested giving IVIG1 g/kg daily for2 days could help in this case. Patient needs inpatient psych admission after medically stable. Rest of the plan as discussed below. 10/27/2025: Patient was seen and evaluated bedside this morning, no family at bedside. Patient has been hallucinating and continues on one-to-one observation. Morning labs revealed white count 2.4, H&H 10, 30.6 respectively, platelets 42, sodium 142, potassium 3.4. CT abdomen showed hepatosplenomegaly with hepatic steatosis. No focal hepatic lesions. Dilated portal/splenic vein-likely represents portal hypertension. No ascites. Patient needs inpatient psych admission after medically stable. Rest of the plan as discussed below. 10/28/2025: Patient was seen and evaluated bedside this morning, no family at bedside. Patient looks hemodynamically stable and continues on one-to-one observation. Morning labs reveal white count 2.1, H&H 10.1, 31.4 respectively, platelets 59, BUN 6, creatinine 0.5. Heme-Onc recommended not to treat pancytopenia at this time, wants the patient to follow up outpatient in 2 weeks. If the patient continues to have pancytopenia in the next2 weeks this patient will need bone marrow biopsy to be done. Pending [facility] inpatient evaluation. Rest of the plan as discussed below. 10/29/2025: Patient was seen and evaluated bedside this morning, no family at bedside. Nurse said that patient had severe anxiety, suicidal ideations yesterday and Haldol was given. Patient is placed on one to one observation. Morning labs reveal white count 2.4, H&H 11.4, 34.7 respectively, platelets 57, BUN 4, creatinine 0.5. Pending evaluation by [facility] for inpatient psychiatry as patient has active suicidal ideations. Rest of the plan as discussed below. REVIEW OF SYSTEMS CONSTITUTIONAL: Denies fevers, chills, or night sweats. No unintentional weight loss reported. NEUROLOGICAL: Denies headache, amaurosis fugax, motor weakness, sensory deficit, vertigo/spinning sensation, gait abnormalities, or tremors. ENT: No hearing loss, otalgia, otorrhea, rhinitis, rhinorrhea, hoarseness, or sore throat. CARDIOVASCULAR: Denies any exertional angina, dyspnea on exertion, orthopnea, paroxysmal nocturnal dyspnea, palpitations, life-threatening arrhythmias, claudication. PULMONARY: Denies any shortness of breath, cough, phlegm/sputum, hemoptysis, pleuritic chest pain. SLEEP: Denies morning headaches, daytime somnolence or napping. Denies difficulty falling asleep, staying asleep, waking from sleep. Denies knowledge of snoring. GASTROINTESTINAL: Denies any type of dysphagia to either liquids or solids. De nies nausea, vomiting, pyrosis, early satiety, abdominal pain, diarrhea, constipation, or changes in stool consistency or caliber. Denies coffee-ground emesis, hematemesis, hematochezia, or melanotic stools. GENITOURINARY: Denies frequency, urgency, nocturia, hematuria or incontinence (Storage/Irritative symptoms.) Low urinary stream, straining to void, urinary intermittency or hesitancy, splitting of the voiding stream, terminal dribbling. ENDOCRINOLOGIC: Denies polyuria, polydipsia, polyphagia or heat/cold intolerances. HEMATOLOGIC: Denies thrombophilia/previous clots, or coagulopathy/bleeding disorders. ONCOLOGIC: Denies personal history of malignancy. DERMATOLOGIC: Denies rashes or pruritus. PSYCHIATRIC: Denies any suicidal or homicidal ideation. Denies hallucinations. PHYSICAL EXAM GENERAL APPEARANCE: Awake, eyes closed, minimally interactive, responds only to direct questioning, requests not to be bothered, expresses amish ideation NEUROLOGICAL: Cranial nerves II-XII grossly intact. Motor is 5/5 in bilateral upper and lower extremities proximal to distal. No sensory deficits. HEENT: Face is symmetric. Pupils are equal and reactive. Extraocular movements are intact. NECK: Supple. No JVD. No thyromegaly. No submental, submandibular, pre- /postauricular, occipital or supraclavicular lymphadenopathy. CHEST: Normal chest expansion. No Telemetry. LUNGS: Absence of any rales, rhonchi or any wheezing. CARDIOVASCULAR: Regular. S1 and S2 normal. No appreciable rubs, murmurs or gallops. ABDOMEN: Soft, nontender, and nondistended. There is no rebound, voluntary guarding, or rigidity. : Deferred. No Clayton. EXTREMITIES: Non-edematous and not cyanotic. No clubbing. Good capillary refill. SKIN: lower ext petechiae Psych: Flat affect, withdrawn, amish preoccupation, minimally responsive Vital Signs (last 8hr) Date Time Temp Pulse Resp B/P (MAP) Pulse Ox O2 Delivery O2 Flow Rate FiO2 10/29/25 08:25 96 Room Air* 0 21 10/29/25 07:08 98.1 90 16 152/79 98 Room Air 10/29/25 04:38 98.4 99 16 127/70 97 Room Air LABS: Laboratory: Test 10/29/25 04:09 10/28/25 03:51 Range/Units White Blood Count 2.4 L 4.8-10.8 K/uL Red Blood Count 3.91 L 4.00-5.50 MIL/uL Hemoglobin 11.4 L 12.0-16.0 g/dL Hematocrit 34.7 L 36-48 % Mean Corpuscular Volume 88.7 79-99 fL Mean Corpuscular Hemoglobin 29.2 27.0-33.0 pg Mean Corpuscular Hemoglobin Concent 32.9 32.0-36.0 g/dL Red Cell Distribution Width 13.3 11.0-15.5 % Platelet Count 57 L 130-400 K/uL Mean Platelet Volume 12.0 H 7.5-10.5 fL Immature Granulocyte % (Auto) 1.7 H 0-1 % Neutrophils (%) (Auto) 22.3 L 40.0-77.0 % Lymphocytes (%) (Auto) 33.1 21.0-51.0 % Monocytes (%) (Auto) 42.1 H 3.0-13.0 % Eosinophils (%) (Auto) 0.8 0.0-8.0 % Basophils (%) (Auto) 0.0 0.0-5.0 % Neutrophils # (Auto) 0.5 L 1.8-7.7 K/uL Lymphocytes # (Auto) 0.8 L 1.0-4.8 K/uL Monocytes # (Auto) 1.0 0.1-1.0 K/uL Eosinophils # (Auto) 0.02 0.00-0.70 K/uL Basophils # (Auto) 0.00 0.00-0.20 K/uL Absolute Immature Granulocyte (auto 0.04 0-1 K/uL Segmented Neutrophils % 16 L 40-70 % Lymphocytes % (Manual) 38 22-44 % Monocytes % (Manual) 46 H 2-9 % Nucleated Red Blood Cells 0.0 0.0-0.19 % Differential Comment MANUAL DIFFERENTIAL White Cell Morphology Comment Platelet Morphology Comment See comments Red Blood Cell Morphology ANISO 1+ Sodium Level 142 136-145 mmol/L Potassium Level 4.1 3.5-5.1 mmol/L Chloride Level 106 101-111 mmol/L Carbon Dioxide Level 30 21-32 mmol/L Blood Urea Nitrogen 4 L 7-18 mg/dL Creatinine 0.5 0.5-1.0 mg/dL Glomerular Filtration Rate Calc 112 >90 mL/min Random Glucose 106 H 70-105 mg/dL Total Calcium 8.5 8.5-10.1 mg/dL Total Bilirubin 0.5 # 0.2-1.0 mg/dL Aspartate Amino Transf (AST/SGOT) 22 10-37 U/L Alanine Aminotransferase (ALT/SGPT) 29 # 12-78 U/L Alkaline Phosphatase 62 50-136 U/L Total Protein 5.6 L 6.0-8.3 g/dL Albumin 2.5 L 3.5-5.0 g/dL Current Medications Medications (Trade) Dose Ordered Sig/Michael Route PRN Reason Start Time Stop Time Status Last Admin Dose Admin Acetaminophen (TYLenol 325MG TAB) 650 mg Q4H PRN PO TEMPERATURE GREATER THAN 101.5 10/22/25 12:30 11/21/25 12:29 10/24/25 01:16 650 MG Acetaminophen (TYLenol 325MG TAB) 650 mg Q6H PRN PO MILD PAIN (1-3) 10/22/25 12:30 11/21/25 12:29 Ceftriaxone Sodium (ROCEphine 1G INJ) 1 gm Q24H IVPB 10/22/25 12:30 10/24/25 07:18 DC 10/22/25 14:59 1 GM Ceftriaxone Sodium (ROCEphine 1G INJ) 1 gm Q24H IVPB 10/24/25 09:00 11/03/25 08:59 10/29/25 09:45 1 GM Diphenhydramine HCl (BENAdryl CAP) 25 mg Q6H PRN PO AGITATION 10/25/25 08:30 11/24/25 08:29 10/25/25 15:02 25 MG Enoxaparin Sodium (Lovenox) 40 mg DAILY SQ 10/23/25 09:00 10/23/25 14:56 DC 10/23/25 08:29 40 MG Folic Acid (FOLic ACID 1 MG TABLET) 1 mg DAILY PO 10/26/25 09:00 11/25/25 08:59 10/29/25 09:45 1 MG Haloperidol (Haldol) 5 mg Q6H PRN PO ANXIETY/AGITATION 10/25/25 08:30 11/24/25 08:29 10/29/25 09:44 5 MG Hydralazine HCl (APRESOLine 20MG INJ) 10 mg Q6H PRN IV ADMINISTER FOR SBP > 160 10/22/25 17:00 11/21/25 16:59 Ondansetron HCl (zoFRAN 4MG INJ) 4 mg Q6H PRN IVP NAUSEA/VOMITING 10/22/25 12:30 11/21/25 12:29 10/22/25 16:14 4 MG Pharmacy Profile Note (Pharmacy Communication) ONCE MISC 10/22/25 14:00 10/22/25 19:24 DC Potassium Chloride 100 ml @ 100 mls/hr AD PRN IV POTASSIUM PROTOCOL 10/25/25 08:30 11/24/25 08:29 Potassium Chloride (K-Dur/Klor-Con 20meq) 20 meq AD PRN PO POTASSIUM PROTOCOL 10/25/25 08:30 11/24/25 08:29 10/28/25 09:00 20 MEQ Potassium Chloride (KCl 10% Elixir 20meq/15ml) 20 meq AD PRN PO POTASSIUM PROTOCOL 10/25/25 08:30 11/24/25 08:29 Quetiapine Fumarate (SEROquel 100 mg TAB) 100 mg HS PO 10/23/25 21:00 11/22/25 20:59 10/28/25 20:48 100 MG Sodium Chloride 1,000 ml @ 75 mls/hr [id number] IV 10/22/25 12:30 11/21/25 12:29 10/26/25 09:15 75 MLS/HR Vitamin B Complex (Vitamin B-12) 1,000 mcg DAILY PO 10/26/25 09:00 11/25/25 08:59 10/29/25 09:45 1,000 MCG DIAGNOSTICS / RADIOLOGY: [ ] ASSESSMENT: Pancytopenia with severe thrombocytopenia and neutropenia Altered mental status (AMS) Medication noncompliance/withdrawal Bipolar1 disorder with psychotic features History of depression, PTSD, anxiety Mild metabolic derangements Mild UTI vs. asymptomatic bacteriuria PLAN: Pancytopenia with severe thrombocytopenia and neutropenia - WBC 2.52.7, Plt 4743, Hgb 11.110.7, ANC 0.8 - peripheral blood smear showed red blood cells to be normocytic normochromic. There was no fragments cell or schistocyte. There is no teardrop cells. There is no rouleaux phenomena. There is no pelger-Huet cell. Red cells with no blast. - platelets decreased in number, normal size, some clumping of platelets with manual platelet site count around 60 K - there was hypersegmented neutrophils, patient was started on folic acid1 mg p.o. daily and vitamin B12 1000 mcg p.o. daily - the pancytopenia could be multifactorial, IVIG1 g/kg daily for2 days could help as per Heme-Onc - Transfuse platelets only if active bleeding or <10K, or if invasive procedures needed (per hematology guidance) - Daily CBC to trend - hematology on board, we will continue to follow their recommendations. Altered Mental Status - Monitor neuro status closely - Repeat neuro exam q24h - MRI brain if mental status does not improve or if new focal deficits develop (per CT recommendation) - Correct metabolic derangements as indicated - Monitor for infection/sepsis given neutropenia Bipolar1 disorder with psychotic features History of depression, PTSD, anxiety - psychiatry recommended to hold Zoloft, Wellbutrin, Ativan. Start her on Seroquel 100 mg daily and Haldol 5 mg per oral/IM and [id number] mg per oral/IM q.6 hour PRN for agitation. - Monitor for withdrawal symptoms (serotonin discontinuation, antipsychotic withdrawal, bupropion) - Reinitiate home psych meds as appropriate, in collaboration with psychiatry and after medical clearance Infection Prophylaxis - Reverse isolation/neutropenic precautions if ANC <500 or as per hospital protocol - Monitor for fever/infection; low threshold for empiric antibiotics if febrile or septic Supportive Care - IV fluids as needed for hydration - Monitor electrolytes, glucose - DVT prophylaxis with SCDs - Fall precautions ATTESTATION BY PHYSICIAN I have seen and examined the patient. I reviewed the documentation, medical decision making, and treatment plan as noted by the resident physician above. I agree with the findings and plan of care. ELMIRA AHUJA MD, ADIL SHAH QUADRI MD Oct 29, 2025 10:54
[2025-10-29 10:59] VITALS: BP 150/64; PULSE 88; RESP 18; TEMP 98.2
--- NOTE | 2025-10-29 11:00 | NUR ---
PATIENT BELONGINGS PATIENT ON SUICIDAL PRECAUTIONS DUE TO THOUGHTS OF SUICIDAL IDEATIONS AND WANTING TO HARM HERSELF. PATIENT'S BELONGINGS WERE TAKEN BY SECURITY. HOME MEDICATIONS ARE IN PHARMACY.
[2025-10-29 16:08] VITALS: BP 150/65; PULSE 89; RESP 18; TEMP 98.1
[2025-10-29 19:46] VITALS: BP 149/75; PULSE 85; RESP 18; TEMP 98.3
--- NOTE | 2025-10-29 22:34 | NUR ---
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
[2025-10-30] VITALS (7 sets, daily range): BP systolic 131–155; BP diastolic 52–76; PULSE 82–88; RESP 16–26; TEMP 97.9–98.6; O2SAT 99
[2025-10-30 05:54] LABS: IMMATURE GRANULOCYTE ABSOLUTE 0.02 K/uL (0-1); NUCLEATED RED BLOOD CELLS 0.0 % (0.0-0.19); PLATELET COUNT (AUTO) 46 K/uL (130-400); RED BLOOD CELL COUNT(AUTO) 3.65 MIL/uL (4.00-5.50); RED CELL DISTRIBUTION WIDTH 13.3 % (11.0-15.5); WHITE BLOOD COUNT (AUTO) 2.8 K/uL (4.8-10.8)
[2025-10-30 06:07] LABS: CREATININE 0.6 mg/dL (0.5-1.0); GLOMERULAR FILTR. RATE CALC 107.0 mL/min (>90); GLUCOSE,RANDOM 114.0 mg/dL (70-105); SODIUM SERUM 141.0 mmol/L (136-145); UREA NITROGEN, BLOOD 6.0 mg/dL (7-18)
--- NOTE | 2025-10-30 06:58 | PN ---
The patient is a 55-year-old female with a history of diabetes mellitus (noncompliant), anxiety, and depression, who presented to the ED for altered mental status. She has not taken her prescribed psychiatric medications (sertraline 200 mg nightly, quetiapine 100 mg nightly, prazosin 1 mg nightly, bupropion XL 300 mg nightly) for the past four days, reportedly due to a desire to avoid "drugs in her body." On my evaluation, the patient was awake but minimally interactive, kept her eyes closed, and repeatedly stated she was thirsty and did not want to be bothered, expressing congregational ideation ("wants the Holy Spirit to purge her"). She was initially being considered for psychiatric admission Peripheral blood smear was evaluated. There was no blasts could be seen. There is not much abnormality except pancytopenia which look like drug-induced. White blood count 3.0 with normal manual differentiation. Hemoglobin 9.8 g/deciliter with platelets 34K. Patient is improved significantly. But the patient actually continued to have pancytopenia with monocytosis pt with suicidal thoughts PHYSICAL EXAM GENERAL APPEARANCE: Awake, eyes closed, minimally interactive, responds only to direct questioning, requests not to be bothered, expresses congregational ideation NEUROLOGICAL: Cranial nerves II-XII grossly intact. Motor is 5/5 in bilateral upper and lower extremities proximal to distal. No sensory deficits. HEENT: Face is symmetric. Pupils are equal and reactive. Extraocular movements are intact. NECK: Supple. No JVD. No thyromegaly. No submental, submandibular, pre- /postauricular, occipital or supraclavicular lymphadenopathy. CHEST: Normal chest expansion. No Telemetry. LUNGS: Absence of any rales, rhonchi or any wheezing. CARDIOVASCULAR: Regular. S1 and S2 normal. No appreciable rubs, murmurs or gallops. ABDOMEN: Soft, nontender, and nondistended. There is no rebound, voluntary guarding, or rigidity. : Deferred. No Clayton. EXTREMITIES: Non-edematous and not cyanotic. No clubbing. Good capillary refill. SKIN: lower ext petechiae Psych: Flat affect, withdrawn, congregational preoccupation, minimally responsive Assessment 1. Neutropenia. There is monocytosis 2. Anemia. Hemoglobin level 10.0 g/deciliter 3. Thrombocytopenia. Platelet count 42K. 4. Change mental status 5. Diabetes mellitus 6. viral infection 7. pt with suicidal thoughts Plan 1. Peripheral blood smear continue to show monocytosis is high. This could be telling us that the bone marrow is recovering or it could be just its primary monocytosis. I will ask for flow cytometry and peripheral blood to be done As there was some clumping of the platelet with manual platelet count around 60K. 2. There was hypersegmented neutrophils. This patient to Continue on folic acid 1 mg p.o. daily and vitamin B12 1000 mcg p.o. daily. 3. Peripheral blood smear showed vacuolation inside the white cell consistent with infection. Patient to continue antibiotic treatment as per primary 4. pt with suicidal thoughts. pt is clear to go to in-pt Psychiatric unit. Vitals/Labs Vital Signs Date Time Temp Pulse Resp B/P (MAP) Pulse Ox O2 Delivery O2 Flow Rate FiO2 10/30/25 04:00 98.2 84 18 137/70 96 Room Air 10/29/25 20:45 0 21 Laboratory Tests 10/30/25 05:37 Medications Current Medications Ondansetron HCl 4 mg ONCE ONCE IVP Last administered on 10/22/25at 06:45; Start 10/22/25 at 06:30; Stop 10/22/25 at 06:31; Status DC Acetaminophen 650 mg Q4H PRN PO Last administered on 10/24/25at 01:16; Start 10/22/25 at 12:30; Stop 11/21/25 at 12:29 Acetaminophen 650 mg Q6H PRN PO; Start 10/22/25 at 12:30; Stop 11/21/25 at 12:29 Ondansetron HCl 4 mg Q6H PRN IVP Last administered on 10/22/25at 16:14; Start 10/22/25 at 12:30; Stop 11/21/25 at 12:29 Sodium Chloride 1,000 ml @ 75 mls/hr [id number] IV Last administered on 10/26/25at 09:15; Start 10/22/25 at 12:30; Stop 11/21/25 at 12:29 Ceftriaxone Sodium 1 gm Q24H IVPB Last administered on 10/22/25at 14:59; Start 10/22/25 at 12:30; Stop 10/24/25 at 07:18; Status DC Quetiapine Fumarate 100 mg ONCE ONCE PO Last administered on 10/22/25at 15:17; Start 10/22/25 at 14:00; Stop 10/22/25 at 14:02; Status DC Quetiapine Fumarate 100 mg HS PO Last administered on 10/29/25at 21:38; Start 10/23/25 at 21:00; Stop 11/22/25 at 20:59 Pharmacy Profile Note ONCE MISC; Start 10/22/25 at 14:00; Stop 10/22/25 at 19:24; Status DC Enoxaparin Sodium 40 mg DAILY SQ Last administered on 10/23/25at 08:29; Start 10/23/25 at 09:00; Stop 10/23/25 at 14:56; Status DC Hydralazine HCl 10 mg Q6H PRN IV; Start 10/22/25 at 17:00; Stop 11/21/25 at 16:59 Ceftriaxone Sodium 1 gm Q24H IVPB Last administered on 10/29/25at 09:45; Start 10/24/25 at 09:00; Stop 11/03/25 at 08:59 Potassium Chloride 100 ml @ 100 mls/hr AD PRN IV; Start 10/25/25 at 08:30; Stop 11/24/25 at 08:29 Potassium Chloride 20 meq AD PRN PO; Start 10/25/25 at 08:30; Stop 11/24/25 at 08:29 Potassium Chloride 20 meq AD PRN PO Last administered on 10/28/25at 09:00; Start 10/25/25 at 08:30; Stop 11/24/25 at 08:29 Haloperidol 5 mg Q6H PRN PO Last administered on 10/29/25at 21:43; Start 10/25/25 at 08:30; Stop 11/24/25 at 08:29 Diphenhydramine HCl 25 mg Q6H PRN PO Last administered on 10/25/25at 15:02; Start 10/25/25 at 08:30; Stop 11/24/25 at 08:29 Folic Acid 1 mg DAILY PO Last administered on 10/29/25at 09:45; Start 10/26/25 at 09:00; Stop 11/25/25 at 08:59 Vitamin B Complex 1,000 mcg DAILY PO Last administered on 10/29/25at 09:45; Start 10/26/25 at 09:00; Stop 11/25/25 at 08:59 Iohexol 75 ml STK-MED ONCE IV; Start 10/26/25 at 17:23; Stop 10/26/25 at 17:23; Status DC KATHERYN BROWN MD Oct 30, 2025 06:58
--- NOTE | 2025-10-30 08:55 | NUR ---
PER DR. BROWN, PATIENT IS MEDICALLY CLEARED FROM HIS STANDPOINT.
[2025-10-30 09:20] LABS: EOSINOPHILS % (MANUAL) 1 % (1-6); LYMPHOCYTES % (MANUAL) 29 % (22-44); MONOCYTES % (MANUAL) 43 % (2-9); REACTIVE LYMPHOCYTES 4 % (0-0); SEGMENTED NEUTROPHILS % 23 % (40-70)
[2025-10-30 09:22] LABS: MAN.DIFF COMMENT-IMPRESSION MANUAL DIFFERENTIAL
[2025-10-30 09:24] LABS: PLATELET MORPHOLOGY COMMENT MARKED DECREASE
--- NOTE | 2025-10-30 12:56 | PN ---
[facility] PROGRESS NOTE Date of Service: Oct 30, 2025 Time of Service: 12:49 SUBJECTIVE: HISTORY OF PRESENT ILLNESS: The patient is a 55-year-old female with a history of diabetes mellitus (noncompliant), anxiety, and depression, who presented to the ED for altered mental status. She has not taken her prescribed psychiatric medications (sertraline 200 mg nightly, quetiapine 100 mg nightly, prazosin 1 mg nightly, bupropion XL 300 mg nightly) for the past four days, reportedly due to a desire to avoid "drugs in her body." On my evaluation, the patient was awake but minimally interactive, kept her eyes closed, and repeatedly stated she was thirsty and did not want to be bothered, expressing religion ideation ("wants the Holy Spirit to purge her"). She was initially being considered for psychiatric admission, but laboratory evaluation revealed pancytopenia with severe thrombocytopenia (WBC 2.52.7, Hgb 11.110.7, Hct 33.331.9, platelets 4743), raising concern for a primary hematologic process such as thrombotic thrombocytopenic purpura (TTP). During her ED stay, she was intermittently uncooperative, at one point locking herself in the bathroom and requiring security assistance. She was subsequently referred to the hospitalist service for further evaluation and management of her cytopenias and altered mental status. 10/23/2025: Patient was seen and evaluated bedside this morning. she is awake, alert, agitated and confused, currently on 1 on 1 sitter. Morning labs showed white count 2.9, H&H 11.7, 35respectively, platelet count 40, PT 11.2, INR 1.06. As per tele psych recommendations her psychiatry medications are on hold except for Seroquel 100 mg for mood stabilization/psychosis, Haldol5 mg p.o. q.6 PRN for agitation. Patient might need psych admission as she is endorsing suicidal ideation, command hallucination, presently manic. Hematology was consulted for f urther evaluation of pancytopenia. 10/24/2025: Patient was evaluated bedside this morning. Patient has been agitated and looks confused. However she is more cooperative today. She has been hallucinating and is on one-to-one observation. Labs remarkable for WBC 3.1, hemoglobin 10.7, platelets 45, potassium 3.4. Hematology has been consulted for pancytopenia. She has been agitated and benefitted hallucinating. She do have a suicidal ideation and still remains confused. Telepsych recommended to continue Seroquel 100 mg HS and keep Haldol 5 mg q.6 PRN along with [id number] mg. Patient needs inpatient psych admission after medically stable. Rest of the plan as discussed below. 10/25/2025: Patient was seen and evaluated bedside this morning, no family at bedside. Patient has been agitated, confused and paranoid. Patient has been hallucinating and is on one-to-one observation. Morning Labs white count 3.9, H&H 10.9, 32, platelets 37. Hematology has been consulted for pancytopenia. We will get ultrasound right upper quadrant to check for liver cirrhosis. She do have a suicidal ideation and still remains confused. Telepsych recommended to continue Seroquel 100 mg HS and keep Haldol 5 mg q.6 PRN along with [id number] mg. Patient needs inpatient psych admission after medically stable. Rest of the plan as discussed below. 10/26/2025: Patient was seen and evaluated bedside this morning, no family at bedside. Patient has been hallucinating and continues on one-to-one observation. Morning labs revealed white count 3, H and H 9.8, 30.6 respectively, platelets 34, sodium 141, potassium 3.5. Ultrasound abdomen revealed mild hepatic steatosis with liver size measuring 14.5 cm, pending CT abdomen. Dr. Mayo recommended starting folic acid1 mg p.o. daily, vitamin B12 1000 mcg daily due to hypersegmented neutrophils on peripheral smear. He said the pancytopenia could be multifactorial due to antipsychotic medications, Gwendolyn bar virus infection, said no need for bone marrow biopsy to be done. He suggested giving IVIG1 g/kg daily for2 days could help in this case. Patient needs inpatient psych admission after medically stable. Rest of the plan as discussed below. 10/27/2025: Patient was seen and evaluated bedside this morning, no family at bedside. Patient has been hallucinating and continues on one-to-one observation. Morning labs revealed white count 2.4, H&H 10, 30.6 respectively, platelets 42, sodium 142, potassium 3.4. CT abdomen showed hepatosplenomegaly with hepatic steatosis. No focal hepatic lesions. Dilated portal/splenic vein-likely represents portal hypertension. No ascites. Patient needs inpatient psych admission after medically stable. Rest of the plan as discussed below. 10/28/2025: Patient was seen and evaluated bedside this morning, no family at bedside. Patient looks hemodynamically stable and continues on one-to-one observation. Morning labs reveal white count 2.1, H&H 10.1, 31.4 respectively, platelets 59, BUN 6, creatinine 0.5. Heme-Onc recommended not to treat pancytopenia at this time, wants the patient to follow up outpatient in 2 weeks. If the patient continues to have pancytopenia in the next2 weeks this patient will need bone marrow biopsy to be done. [facility] Rest of the plan as discussed below. 10/29/2025: Patient was seen and evaluated bedside this morning, no family at bedside. Nurse said that patient had severe anxiety, suicidal ideations yesterday and Haldol was given. Patient is placed on one to one observation. Morning labs reveal white count 2.4, H&H 11.4, 34.7 respectively, platelets 57, BUN 4, creatinine 0.5. [facility] as patient has active suicidal ideations. Rest of the plan as discussed below. 10/30/2025: Patient seen and evaluated at bedside. No family present. Patient remains on admitted pending an inpatient psychiatric evaluation from [facility] r suicidal ideations. Suicide precautions are in place, including all personal belongings have been removed and secured with hospital security as well as home medications have been sealed and sent to pharmacy for holding. She is currently on a regular diet and tolerating without issue. She remains medically stable while awaiting psychiatric assessment and disposition. REVIEW OF SYSTEMS CONSTITUTIONAL: Denies fevers, chills, or night sweats. No unintentional weight loss reported. NEUROLOGICAL: Denies headache, amaurosis fugax, motor weakness, sensory deficit, vertigo/spinning sensation, gait abnormalities, or tremors. ENT: No hearing loss, otalgia, otorrhea, rhinitis, rhinorrhea, hoarseness, or sore throat. CARDIOVASCULAR: Denies any exertional angina, dyspnea on exertion, orthopnea, paroxysmal nocturnal dyspnea, palpitations, life-threatening arrhythmias, claudication. PULMONARY: Denies any shortness of breath, cough, phlegm/sputum, hemoptysis, pleuritic chest pain. SLEEP: Denies morning headaches, daytime somnolence or napping. Denies difficulty falling asleep, staying asleep, waking from sleep. Denies knowledge of snoring. GASTROINTESTINAL: Denies any type of dysphagia to either liquids or solids. Denies nausea, vomiting, pyrosis, early satiety, abdominal pain, diarrhea, constipation, or changes in stool consistency or caliber. Denies coffee-ground emesis, hematemesis, hematochezia, or melanotic stools. GENITOURINARY: Denies frequency, urgency, nocturia, hematuria or incontinence (Storage/Irritative symptoms.) Low urinary stream, straining to void, urinary intermittency or hesitancy, splitting of the voiding stream, terminal dribbling. ENDOCRINOLOGIC: Denies polyuria, polydipsia, polyphagia or heat/cold intolerances. HEMATOLOGIC: Denies thrombophilia/previous clots, or coagulopathy/bleeding disorders. ONCOLOGIC: Denies personal history of malignancy. DERMATOLOGIC: Denies rashes or pruritus. PSYCHIATRIC: Denies any suicidal or homicidal ideation. Denies hallucinations. PHYSICAL EXAM GENERAL APPEARANCE: Awake, eyes closed, minimally interactive, responds only to direct questioning, requests not to be bothered, expresses religion ideation NEUROLOGICAL: Cranial nerves II-XII grossly intact. Motor is 5/5 in bilateral upper and lower extremities proximal to distal. No sensory deficits. HEENT: Face is symmetric. Pupils are equal and reactive. Extraocular movements are intact. NECK: Supple. No JVD. No thyromegaly. No submental, submandibular, pre- /postauricular, occipital or supraclavicular lymphadenopathy. CHEST: Normal chest expansion. No Telemetry. LUNGS: Absence of any rales, rhonchi or any wheezing. CARDIOVASCULAR: Regular. S1 and S2 normal. No appreciable rubs, murmurs or gallops. ABDOMEN: Soft, nontender, and nondistended. There is no rebound, voluntary guarding, or rigidity. : Deferred. No [place]. EXTREMITIES: Non-edematous and not cyanotic. No clubbing. Good capillary re fill. SKIN: lower ext petechiae Psych: Flat affect, withdrawn, religion preoccupation, minimally responsive Vital Signs (last 8hr) Date Time Temp Pulse Resp B/P (MAP) Pulse Ox O2 Delivery O2 Flow Rate FiO2 12/27/25 11:13 98.2 86 16 131/65 98 Room Air 21 10/30/25 07:35 98.1 82 18 135/52 96 Room Air 21 LABS: Laboratory: Test 10/30/25 05:37 Range/Units White Blood Count 2.8 L 4.8-10.8 K/uL Red Blood Count 3.65 L 4.00-5.50 MIL/uL Hemoglobin 10.5 L 12.0-16.0 g/dL Hematocrit 32.4 L 36-48 % Mean Corpuscular Volume 88.8 79-99 fL Mean Corpuscular Hemoglobin 28.8 27.0-33.0 pg Mean Corpuscular Hemoglobin Concent 32.4 32.0-36.0 g/dL Red Cell Distribution Width 13.3 11.0-15.5 % Platelet Count 46 L 130-400 K/uL Mean Platelet Volume 11.6 H 7.5-10.5 fL Immature Granulocyte % (Auto) 0.7 0-1 % Neutrophils (%) (Auto) 24.9 L 40.0-77.0 % Lymphocytes (%) (Auto) 29.3 21.0-51.0 % Monocytes (%) (Auto) 42.9 H 3.0-13.0 % Eosinophils (%) (Auto) 1.8 0.0-8.0 % Basophils (%) (Auto) 0.4 0.0-5.0 % Neutrophils # (Auto) 0.7 L 1.8-7.7 K/uL Lymphocytes # (Auto) 0.8 L 1.0-4.8 K/uL Monocytes # (Auto) 1.2 H 0.1-1.0 K/uL Eosinophils # (Auto) 0.05 0.00-0.70 K/uL Basophils # (Auto) 0.01 0.00-0.20 K/uL Absolute Immature Granulocyte (auto 0.02 0-1 K/uL Segmented Neutrophils % 23 L 40-70 % Lymphocytes % (Manual) 29 22-44 % Monocytes % (Manual) 43 H 2-9 % Eosinophils % (Manual) 1 1-6 % Nucleated Red Blood Cells 0.0 0.0-0.19 % Differential Comment MANUAL DIFFERENTIAL Reactive Lymphocytes 4 H 0-0 % White Cell Morphology Comment Platelet Morphology Comment MARKED DECREASE Red Blood Cell Morphology See comments Sodium Level 141 136-145 mmol/L Potassium Level 3.7 3.5-5.1 mmol/L Chloride Level 107 101-111 mmol/L Carbon Dioxide Level 28 21-32 mmol/L Blood Urea Nitrogen 6 L 7-18 mg/dL Creatinine 0.6 0.5-1.0 mg/dL Glomerular Filtration Rate Calc 107 >90 mL/min Random Glucose 114 H 70-105 mg/dL Total Calcium 8.2 L 8.5-10.1 mg/dL Current Medications Medications (Trade) Dose Ordered Sig/Michael Route PRN Reason Start Time Stop Time Status Last Admin Dose Admin Acetaminophen (TYLenol 325MG TAB) 650 mg Q4H PRN PO TEMPERATURE GREATER THAN 101.5 10/22/25 12:30 11/21/25 12:29 10/24/25 01:16 650 MG Acetaminophen (TYLenol 325MG TAB) 650 mg Q6H PRN PO MILD PAIN (1-3) 10/22/25 12:30 11/21/25 12:29 Ceftriaxone Sodium (ROCEphine 1G INJ) 1 gm Q24H IVPB 10/22/25 12:30 10/24/25 07:18 DC 10/22/25 14:59 1 GM Ceftriaxone Sodium (ROCEphine 1G INJ) 1 gm Q24H IVPB 10/24/25 09:00 11/03/25 08:59 10/30/25 09:41 1 GM Diphenhydramine HCl (BENAdryl CAP) 25 mg Q6H PRN PO AGITATION 10/25/25 08:30 11/24/25 08:29 10/25/25 15:02 25 MG Enoxaparin Sodium (Lovenox) 40 mg DAILY SQ 10/23/25 09:00 10/23/25 14:56 DC 10/23/25 08:29 40 MG Folic Acid (FOLic ACID 1 MG TABLET) 1 mg DAILY PO 10/26/25 09:00 11/25/25 08:59 10/30/25 09:41 1 MG Haloperidol (Haldol) 5 mg Q6H PRN PO ANXIETY/AGITATION 10/25/25 08:30 11/24/25 08:29 10/29/25 21:43 5 MG Hydralazine HCl (APRESOLine 20MG INJ) 10 mg Q6H PRN IV ADMINISTER FOR SBP > 160 10/22/25 17:00 11/21/25 16:59 Ondansetron HCl (zoFRAN 4MG INJ) 4 mg Q6H PRN IVP NAUSEA/VOMITING 10/22/25 12:30 11/21/25 12:29 10/22/25 16:14 4 MG Pharmacy Profile Note (Pharmacy Communication) ONCE MISC 10/22/25 14:00 10/22/25 19:24 DC Potassium Chloride 100 ml @ 100 mls/hr AD PRN IV POTASSIUM PROTOCOL 10/25/25 08:30 11/24/25 08:29 Potassium Chloride (K-Dur/Klor-Con 20meq) 20 meq AD PRN PO POTASSIUM PROTOCOL 10/25/25 08:30 11/24/25 08:29 10/28/25 09:00 20 MEQ Potassium Chloride (KCl 10% Elixir 20meq/15ml) 20 meq AD PRN PO POTASSIUM PROTOCOL 10/25/25 08:30 11/24/25 08:29 Quetiapine Fumarate (SEROquel 100 mg TAB) 100 mg HS PO 10/23/25 21:00 11/22/25 20:59 10/29/25 21:38 100 MG Sodium Chloride 1,000 ml @ 75 mls/hr [id number] IV 10/22/25 12:30 11/21/25 12:29 10/30/25 09:41 75 MLS/HR Vitamin B Complex (Vitamin B-12) 1,000 mcg DAILY PO 10/26/25 09:00 11/25/25 08:59 10/30/25 09:41 1,000 MCG DIAGNOSTICS / RADIOLOGY: [ ] ASSESSMENT: Pancytopenia with severe thrombocytopenia and neutropenia Altered mental status (AMS) Medication noncompliance/withdrawal Bipolar1 disorder with psychotic features History of depression, PTSD, anxiety Mild metabolic derangements Mild UTI vs. asymptomatic bacteriuria PLAN: Pancytopenia with severe thrombocytopenia and neutropenia - WBC 2.52.7, Plt 4743, Hgb 11.110.7, ANC 0.8 - peripheral blood smear showed red blood cells to be normocytic normochromic. There was no fragments cell or schistocyte. There is no teardrop cells. There is no rouleaux phenomena. There is no pelger-Huet cell. Red cells with no blast. - platelets decreased in number, normal size, some clumping of platelets with manual platelet site count around 60 K - there was hypersegmented neutrophils, patient was started on folic acid1 mg p.o. daily and vitamin B12 1000 mcg p.o. daily - the pancytopenia could be multifactorial, IVIG1 g/kg daily for2 days could help as per Heme-Onc - Transfuse platelets only if active bleeding or <10K, or if invasive procedures needed (per hematology guidance) - Daily CBC to trend - hematology on board, we will continue to follow their recommendations. Altered Mental Status - Monitor neuro status closely - Repeat neuro exam q24h - MRI brain if mental status does not improve or if new focal deficits develop (per CT recommendation) - Correct metabolic derangements as indicated - Monitor for infection/sepsis given neutropenia Bipolar1 disorder with psychotic features History of depression, PTSD, anxiety - psychiatry recommended to hold Zoloft, Wellbutrin, Ativan. Start her on Ser oquel 100 mg daily and Haldol 5 mg per oral/IM and [id number] mg per oral/IM q.6 hour PRN for agitation. - Monitor for withdrawal symptoms (serotonin discontinuation, antipsychotic withdrawal, bupropion) - Reinitiate home psych meds as appropriate, in collaboration with psychiatry and after medical clearance Infection Prophylaxis - Reverse isolation/neutropenic precautions if ANC <500 or as per hospital protocol - Monitor for fever/infection; low threshold for empiric antibiotics if febrile or septic Supportive Care - IV fluids as needed for hydration - Monitor electrolytes, glucose - DVT prophylaxis with SCDs - Fall precautions ATTESTATION BY PHYSICIAN I have seen and examined the patient. I reviewed the documentation, medical decision making, and treatment plan as noted by the resident physician above. I agree with the findings and plan of care. Ji Singh IV, MD, PRIYA N Oct 30, 2025 12:56
--- NOTE | 2025-10-30 13:38 | NUR ---
CALLED [place] [facility] AT [phone] SPOKE WITH EVARISTO. PENDING CALL BACK .
--- NOTE | 2025-10-30 14:19 | NUR ---
Guy Titus from [facility] is at bedside to evaluate patient.
--- NOTE | 2025-10-30 16:28 | DS ---
Discharge Summary Hospital Course Summary: This is a 55-year-old female with a history of poorly controlled diabetes mellitus, anxiety, and depression who presented with altered mental status after self-discontinuation of her psychiatric medications for four days. On presentation, she exhibited confusion, agitation, evangelical preoccupation, hallucinations, and suicidal ideation, requiring one-to-one observation and psychiatric consultation. Initial laboratory evaluation revealed pancytopenia with severe thrombocytopenia, prompting admission to the medical service for further evaluation and stabilization rather than immediate psychiatric placement. During hospitalization, the patient remained intermittently agitated and psychotic with ongoing hallucinations and suicidal ideation, managed with quetiapine for 100 mg nightly and haloperidol as needed per telepsychiatry recommendations, while other psychiatric medications were held. Hematology was consulted for pancytopenia, and workup including peripheral smear, abdominal ultrasound, and CT imaging revealed hepatosplenomegaly with hepatic steatosis and portal hypertension, as well as hypersegmented neutrophils suggestive of possible nutritional deficiency. The pancytopenia was felt to be multifactorial, potentially related to medication effects, viral illness, and nutritional deficiencies; therefore, vitamin B12 and folic acid supplementation were initiated, and no acute hematologic intervention was required. By the time of discharge, the patient was medically stable with improving platelet counts and stable hemoglobin, tolerating diet, and without acute medical complaints. She was cleared for discharge by [facility] with plans for close outpatient psychiatric follow-up and continued suicide precautions education. She was discharged on quetiapine, haloperidol as needed, vitamin B12, and folic acid, with instructions to hold other psychiatric medications until cleared by psychiatry and to follow closely with hematology, psychiatry, and her primary care provider. 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 She has not taken her prescribed psychiatric medications (sertraline 200 mg nightly, quetiapine 100 mg nightly, prazosin 1 mg nightly, bupropion XL 300 mg nightly) for the past four days, reportedly due to a desire to avoid "drugs in her body." On my evaluation, the patient was awake but minimally interactive, kept her eyes closed, and repeatedly stated she was thirsty and did not want to be bothered, expressing evangelical ideation ("wants the Holy Spirit to purge her"). She was initially being considered for psychiatric admission, but laboratory evaluation revealed pancytopenia with severe thrombocytopenia (WBC 2.52.7, Hgb 11.110.7, Hct 33.331.9, platelets 4743), raising concern for a primary hematologic process such as thrombotic thrombocytopenic purpura (TTP). During her ED stay, she was intermittently uncooperative, at one point locking herself in the bathroom and requiring security assistance. She was subsequently referred to the hospitalist service for further evaluation and management of her cytopenias and altered mental status. ] REVIEW OF SYSTEMS CONSTITUTIONAL: Denies fevers, chills, or night sweats. No unintentional weight loss reported. NEUROLOGICAL: Denies headache, amaurosis fugax, motor weakness, sensory deficit, vertigo/spinning sensation, gait abnormalities, or tremors. ENT: No hearing loss, otalgia, otorrhea, rhinitis, rhinorrhea, hoarseness, or sore throat. CARDIOVASCULAR: Denies any exertional angina, dyspnea on exertion, orthopnea, paroxysmal nocturnal dyspnea, palpitations, life-threatening arrhythmias, claudication. PULMONARY: Denies any shortness of breath, cough, phlegm/sputum, hemoptysis, pleuritic chest pain. SLEEP: Denies morning headaches, daytime somnolence or napping. Denies difficulty falling asleep, staying asleep, waking from sleep. Denies knowledge of snoring. GASTROINTESTINAL: Denies any type of dysphagia to either liquids or solids. Denies nausea, vomiting, pyrosis, early satiety, abdominal pain, diarrhea, constipation, or changes in stool consistency or caliber. Denies coffee-ground emesis, hematemesis, hematochezia, or melanotic stools. GENITOURINARY: Denies frequency, urgency, nocturia, hematuria or incontinence (Storage/Irritative symptoms.) Low urinary stream, straining to void, urinary intermittency or hesitancy, splitting of the voiding stream, terminal dribbling. ENDOCRINOLOGIC: Denies polyuria, polydipsia, polyphagia or heat/cold intolerances. HEMATOLOGIC: Denies thrombophilia/previous clots, or coagulopathy/bleeding disorders. ONCOLOGIC: Denies personal history of malignancy. DERMATOLOGIC: Denies rashes or pruritus. PSYCHIATRIC: Denies any suicidal or homicidal ideation. Denies hallucinations. PAST MEDICAL HISTORY: [ Diabetes mellitus, anxiety, depression ] PAST SURGICAL HISTORY: [, patient will not answer my question ] PAST SOCIAL HISTORY: [ Patient lives with her son. Denies tobacco, alcohol illicit drug use ] FAMILY HISTORY: [Noncontributory ] Coded Allergies: No Known Drug Allergies (Unverified Allergy, Unknown, 06/14/22) PHYSICAL EXAM GENERAL APPEARANCE: Awake, eyes closed, minimally interactive, responds only to direct questioning, requests not to be bothered, expresses evangelical ideation NEUROLOGICAL: Cranial nerves II-XII grossly intact. Motor is 5/5 in bilateral upper and lower extremities proximal to distal. No sensory deficits. HEENT: Face is symmetric. Pupils are equal and reactive. Extraocular movements are intact. NECK: Supple. No JVD. No thyromegaly. No submental, submandibular, pre- /postauricular, occipital or supraclavicular lymphadenopathy. CHEST: Normal chest expansion. No Telemetry. LUNGS: Absence of any rales, rhonchi or any wheezing. CARDIOVASCULAR: Regular. S1 and S2 normal. No appreciable rubs, murmurs or gallops. ABDOMEN: Soft, nontender, and nondistended. There is no rebound, voluntary guarding, or rigidity. : Deferred. No Clayton. EXTREMITIES: Non-edematous and not cyanotic. No clubbing. Good capillary refill. SKIN: lower ext petechiae Psych: Flat affect, withdrawn, evangelical preoccupation, minimally responsive Assessment 1. Neutropenia 2. Anemia 3. Thrombocytopenia 4. Change mental status 5. Diabetes mellitus 6. Which time viral virus infection Plan 1. Peripheral blood smear showed red blood cells to be normocytic normochromic. There was no fragment cell or schistocyte. There is no teardrop cell. There is no rouleaux phenomena. There is no pelger-Huet cell. White blood cell with no blasts. Platelet was decreased in number. Was normal in size. As there was some clumping of the platelet with manual platelet count around 60K. 2. There was hypersegmented neutrophils. This patient to be started on folic acid 1 mg p.o. daily and vitamin B12 1000 mcg p.o. daily. 3. Peripheral blood smear showed vacuolation inside the white cell consistent with infection. 4. There was no fragment cell or schistocytes. This could rule out TTP. 5. I think the pancytopenia due to use of antipsychotic medication in this case. There is no need for bone marrow biopsy to be done. The pancytopenia could be multifactorial also with the Gwendolyn-Grubbs virus infection could be also ruled. In this case is given IVIG 1 g/kg daily for 2 days could help. KATHERYN BROWN MD Oct 25, 2025 18:14 Electronically Signed by: KATHERYN BROWN MD10/25/252052 Electronically Co-Signed by: CONSULTATION REPORT Name: KEYSHA COFFEY Acct: [id number] MR: [id number] : 1970 Admit Date: 10/22/25 TREVIN MERCEDES MD [address] [address] [place] [address] Tele-psychiatry Consultation Patient Name: Keysha Coffey Patient : 1970 Patient Hospital: [facility] Chief Complaint: History of Present Illness Keysha Coffey is a 55 years old, female consulted at October 22, 2025 at [facility]. patient seen today. Staters she is hearing voices to harm herself. States she has been stressed and has not slept in the past week. Endorses racing thoughts. Evaluation limited due to patient responding to internal stimuli. Physical Examination Vitals: as per chart General: No acute distress Mental Status Examination Mental Status: female, hospital attire Eye Contact: blank stare Speech: delayed +psychomotor retardation Mood is ok and affect is pflat Thought process is superficially organized Thought content - endorses SI, AH Memory and cognition - impaired Insight and judgment. - limited/limited Diagnoses: Bipolar I Disorder with psychotic features hx of depression, ptsd, anxiety Plan: [place] seen via [employer]eles[employer]. As per history - has stopped home medications for the past 4 days - as a result has not slept and decompensated - now endorsing suicidal ideation and auditory hallucinations to harm herself. 1. stop home psychiatric medications - zoloft, wellbutrin, ?ativan, prazosin 2. Give Seroquel 100mg PO - give now for mood stabilization / psychosis 3. have haldol 5mg po/im and benadryl 25mg po/im q6hr prn for agitation , get recent ekg and monitor qtc 4. may need psych admission as she is endorsing suicidal ideation, ?command hallucinations, presently manic 5. consider sitter as patient is endorsing suicidal ideation Discussed with*:Emmie Lemus - [phone] ICD-10*: F31.7 Bipolar disorder, current episode unspecified Time spent preparing for consult:??? 20min Time spent on audio / video:??? 15 min Time spend post consult:??? 20 min Zip Code of Telephysician: --- [phone] Electronically Signed By: Trevin Coffey was informed that the consultation would be provided using video communication and was informed that the he/she could elect to receive in-person medical services instead at any time and such a decision would not limit the patient's access to medical services. Keysha Coffey consented to the telehealth consultation. At the time of the telehealth consultation, Trevin Mercedes MD is located in [place] and the patient is located [facility]. Electronically Signed At: Oct 22, 2025 1:49 PM DISCOVERY MANAGER By Trevin Mercedes. Electronically Signed by: TREVIN MERCEDES MD10/22/25 1349 Electronically Co-Signed by: PROGRESS NOTES Name: KEYSHA COFFEY Acct: [id number] MR: [id number] : 1970 Admit Date: 10/22/25 KATHERYN BROWN MD [address] [address] The patient is a 55-year-old female with a history of diabetes mellitus (noncompliant), anxiety, and depression, who presented to the ED for altered mental status. She has not taken her prescribed psychiatric medications (sertraline 200 mg nightly, quetiapine 100 mg nightly, prazosin 1 mg nightly, bupropion XL 300 mg nightly) for the past four days, reportedly due to a desire to avoid "drugs in her body." On my evaluation, the patient was awake but minimally interactive, kept her eyes closed, and repeatedly stated she was thirsty and did not want to be bothered, expressing evangelical ideation ("wants the Holy Spirit to purge her"). She was initially being considered for psychiatric admission Peripheral blood smear was evaluated. There was no blasts could be seen. There is not much abnormality except pancytopenia which look like drug-induced. White blood count 3.0 with normal manual differentiation. Hemoglobin 9.8 g/deciliter with platelets 34K. Patient is improved significantly. But the patient actually continued to have pancytopenia with monocytosis pt with suicidal thoughts PHYSICAL EXAM GENERAL APPEARANCE: Awake, eyes closed, minimally interactive, responds only to direct questioning, requests not to be bothered, expresses evangelical ideation NEUROLOGICAL: Cranial nerves II-XII grossly intact. Motor is 5/5 in bilateral upper and lower extremities proximal to distal. No sensory deficits. HEENT: Face is symmetric. Pupils are equal and reactive. Extraocular movements are intact. NECK: Supple. No JVD. No thyromegaly. No submental, submandibular, pre- /postauricular, occipital or supraclavicular lymphadenopathy. CHEST: Normal chest expansion. No Telemetry. LUNGS: Absence of any rales, rhonchi or any wheezing. CARDIOVASCULAR: Regular. S1 and S2 normal. No appreciable rubs, murmurs or gallops. ABDOMEN: Soft, nontender, and nondistended. There is no rebound, voluntary guarding, or rigidity. : Deferred. No Clayton. EXTREMITIES: Non-edematous and not cyanotic. No clubbing. Good capillary refill. SKIN: lower ext petechiae Psych: Flat affect, withdrawn, evangelical preoccupation, minimally responsive Assessment 1. Neutropenia. There is monocytosis 2. Anemia. Hemoglobin level 10.0 g/deciliter 3. Thrombocytopenia. Platelet count 42K. 4. Change mental status 5. Diabetes mellitus 6. viral infection 7. pt with suicidal thoughts Plan 1. Peripheral blood smear continue to show monocytosis is high. This could be telling us that the bone marrow is recovering or it could be just its primary monocytosis. I will ask for flow cytometry and peripheral blood to be done As there was some clumping of the platelet with manual platelet count around 60K. 2. There was hypersegmented neutrophils. This patient to Continue on folic acid 1 mg p.o. daily and vitamin B12 1000 mcg p.o. daily. 3. Peripheral blood smear showed vacuolation inside the white cell consistent with infection. Patient to continue antibiotic treatment as per primary 4. pt with suicidal thoughts. pt is clear to go to in-pt Psychiatric unit. Vitals/Labs Vital Signs Date Time Temp Pulse Resp B/P (MAP) Pulse Ox O2 Delivery O2 Flow Rate FiO2 10/30/25 04:00 98.2 84 18 137/70 96 Room Air 10/29/25 20:45 0 21 Laboratory Tests 10/30/25 05:37 Medications Current Medications Ondansetron HCl 4 mg ONCE ONCE IVP Last administered on 10/22/25at 06:45; Start 10/22/25 at 06:30; Stop 10/22/25 at 06:31; Status DC Acetaminophen 650 mg Q4H PRN PO Last administered on 10/24/25at 01:16; Start 10/22/25 at 12:30; Stop 11/21/25 at 12:29 Acetaminophen 650 mg Q6H PRN PO; Start 10/22/25 at 12:30; Stop 11/21/25 at 12:29 Ondansetron HCl 4 mg Q6H PRN IVP Last administered on 10/22/25at 16:14; Start 10/22/25 at 12:30; Stop 11/21/25 at 12:29 Sodium Chloride 1,000 ml @ 75 mls/hr [id number] IV Last administered on 10/26/25at 09:15; Start 10/22/25 at 12:30; Stop 11/21/25 at 12:29 Ceftriaxone Sodium 1 gm Q24H IVPB Last administered on 10/22/25at 14:59; Start 10/22/25 at 12:30; Stop 10/24/25 at 07:18; Status DC Quetiapine Fumarate 100 mg ONCE ONCE PO Last administered on 10/22/25at 15:17; Start 10/22/25 at 14:00; Stop 10/22/25 at 14:02; Status DC Quetiapine Fumarate 100 mg HS PO Last administered on 10/29/25at 21:38; Start 10/23/25 at 21:00; Stop 11/22/25 at 20:59 Pharmacy Profile Note ONCE MISC; Start 10/22/25 at 14:00; Stop 10/22/25 at 19:24; Status DC Enoxaparin Sodium 40 mg DAILY SQ Last administered on 10/23/25at 08:29; Start 10/23/25 at 09:00; Stop 10/23/25 at 14:56; Status DC Hydralazine HCl 10 mg Q6H PRN IV; Start 10/22/25 at 17:00; Stop 11/21/25 at 16:59 Ceftriaxone Sodium 1 gm Q24H IVPB Last administered on 10/29/25at 09:45; Start 10/24/25 at 09:00; Stop 11/03/25 at 08:59 Potassium Chloride 100 ml @ 100 mls/hr AD PRN IV; Start 10/25/25 at 08:30; Stop 11/24/25 at 08:29 Potassium Chloride 20 meq AD PRN PO; Start 10/25/25 at 08:30; Stop 11/24/25 at 08:29 Potassium Chloride 20 meq AD PRN PO Last administered on 10/28/25at 09:00; Start 10/25/25 at 08:30; Stop 11/24/25 at 08:29 Haloperidol 5 mg Q6H PRN PO Last administered on 10/29/25at 21:43; Start 10/25/25 at 08:30; Stop 11/24/25 at 08:29 Diphenhydramine HCl 25 mg Q6H PRN PO Last administered on 10/25/25at 15:02; Start 10/25/25 at 08:30; Stop 11/24/25 at 08:29 Folic Acid 1 mg DAILY PO Last administered on 10/29/25at 09:45; Start 10/26/25 at 09:00; Stop 11/25/25 at 08:59 Vitamin B Complex 1,000 mcg DAILY PO Last administered on 10/29/25at 09:45; Start 10/26/25 at 09:00; Stop 11/25/25 at 08:59 Iohexol 75 ml STK-MED ONCE IV; Start 10/26/25 at 17:23; Stop 10/26/25 at 17:23; Status KATHERYN HURLEY MD Oct 30, 2025 06:58 Electronically Signed by: KATHERYN BROWN MD10/30/25 1000 Electronically Co-Signed by: Procedure(s): [facility] [address] [place] [id number] IMAGING REPORT Signed PATIENT: KEYSHA COFFEY MR#: [id number] : 1970 SEX: F AGE: 55 LOCATION: [facility] ORDER 0755 STATUS: REG ER REPORT#: [id number] SERVICE REASON: Ams, thrombocytopenia ORDERING PHYSICIAN: DEMARCUS STARR MD PROCEDURE: HEAD WO - CT HEAD/BRAIN W/O CONTRAST EXAM: CT Head Without IV contrast. CLINICAL HISTORY: Altered mental status, thrombocytopenia TECHNIQUE: Axial computed tomography images of the head/brain without intravenous contrast. COMPARISON: None provided. FINDINGS: BRAIN: No evidence of acute hemorrhage. No mass lesion. No CT evidence for acute territorial infarct. No midline shift or extra-axial collections. Mild focal cerebral volume loss in the left frontal lobe, concerning for gliosis. VENTRICLES: No hydrocephalus. ORBITS: The orbits are unremarkable. SINUSES AND MASTOIDS: Mild right ethmoidal sinusitis. BONES: No fracture. Hyperostosis frontalis interna. SOFT TISSUES: Unremarkable. IMPRESSION: No acute intracranial abnormality. Recommend MRI brain for further evaluation if clinically warranted. /[place] DICTATED BY: MINDY AMADOR Jr., MD DATE: 10/22/251102 ELECTRONICALLY SIGNED BY: MINDY AMADOR Jr., MD DATE: 10/22/25 110 [facility] [address] [place] [id number] IMAGING REPORT Signed PATIENT: KEYSHA COFFEY MR#: [id number] : 1970 SEX: F AGE: 55 LOCATION: H ORDER 1005 STATUS: ADM IN REPORT#: [id number] SERVICE 1004 REASON: check for liver cirrhosis ORDERING PHYSICIAN: ANGELA MCCLAIN MD PROCEDURE: ABDRUQLTD - US ABDOMINAL RUQ\\LTD EXAM Ultrasound of the right upper quadrant CLINICAL INDICATION check for liver cirrhosis (Hx). COMPARISON None. TECHNIQUE Grayscale and color Doppler ultrasound images of the right upper quadrant were obtained. LIVER The liver measures approximately 14.5 cm in craniocaudal dimension. The hepatic parenchyma demonstrates mild increased echogenicity consistent with hepatic steatosis. No focal hepatic lesion is identified. The hepatic contour is smooth. The main portal vein is patent with normal hepatopetal flow. GALLBLADDER The gallbladder is not visualized on this examination. BILIARY TREE The common bile duct measures approximately 0.5 cm in diameter and is within normal limits. No intrahepatic or extrahepatic biliary ductal dilatation is identified. PANCREAS The visualized portions of the pancreas are within normal limits. RIGHT KIDNEY The right kidney measures approximately 10 x 4.4 x 4.3 cm. Renal cortical thickness and echogenicity are normal. No hydronephrosis or renal calculi are identified. ASCITES No free fluid is identified in the right upper quadrant. IMPRESSION * Gallbladder not visualized, limiting evaluation for gallbladder pathology. * Mild hepatic steatosis with liver size measuring 14.5 cm. * Normal caliber common bile duct without biliary ductal dilatation. * Unremarkable right kidney without hydronephrosis. * No ascites identified. RECOMMENDATIONS * If there is persistent clinical concern for gallbladder pathology, repeat right upper quadrant ultrasound after appropriate fasting or alternative imaging such as HIDA scan or CT abdomen may be considered, in accordance with ACR Appropriateness Criteria. * Clinical correlation and laboratory evaluation are recommended for hepatic steatosis, with consideration of lifestyle modification as clinically indicated. /[place] DICTATED BY: MARLEY BUCK MD DATE: 10/26/25108 ELECTRONICALLY SIGNED BY: MARLEY BUCK MD DATE: 10/26/25[address] [address] IMAGING REPORT Signed PATIENT: KEYSHA COFFEY MR#: [id number] : 1970 SEX: F AGE: 55 LOCATION: [facility] ORDER 1026 STATUS: ADM IN REPORT#: [id number] SERVICE 102 REASON: Liver disease ORDERING PHYSICIAN: ANGELA MCCLAIN MD PROCEDURE: ABDO WWO - CT ABDOMEN W/WO CONTRAST EXAM: CT Abdomen and Pelvis with and without IV contrast CLINICAL HISTORY: Liver disease TECHNIQUE: Axial computed tomography images of the abdomen and pelvis with and without intravenous contrast. CONTRAST: with and without intravenous contrast. COMPARISON: None provided. FINDINGS: LUNG BASES: The lung bases appear clear. No pleural effusions are seen. LIVER: Enlarged in size(20cm) Hepatic steatosis seen. Enlarges portal vein( 15mm) No focal lesion. GALLBLADDER: Cholecystectomy. PANCREAS: Unremarkable. SPLEEN: Splenomegaly(16cm). Dilated splenic vein (20mm) with perisplenic collaterals seen. ADRENAL GLANDS: Unremarkable. KIDNEYS AND URETERS: The kidneys appear within normal limits. There is no hydronephrosis or hydroureter. No urinary calculi are seen. STOMACH AND VISUALISED BOWEL: Unremarkable appearance of the stomach and bowel. No evidence of bowel obstruction. No evidence suggesting enteritis or colitis. PERITONEUM: No free fluid. No free air. LYMPH NODES: No lymphadenopathy is evident. VASCULATURE: No evidence of abdominal aortic aneurysm. BONES: No aggressive appearing osseous lesion. No acute osseous pathology evident. IMPRESSION: Hepatosplenomegaly with Hepatic steatosis. No focal hepatic lesions. Dilated portal /T/ splenic vein -likely represents Portal Hypertension. No ascites. /[place] DICTATED BY: DENA JAUREGUI MD DATE: 10/27/251048 ELECTRONICALLY SIGNED BY: DENA JAUREGUI MD DATE: 10/27/251048 Assessment/Plan: Discharge Diagnosis: Pancytopenia with severe thrombocytopenia and neutropenia Altered mental status (AMS) Medication noncompliance/withdrawal Bipolar1 disorder with psychotic features History of depression, PTSD, anxiety Mild metabolic derangements Mild UTI vs. asymptomatic bacteriuria Discharge Instructions: DATE OF ADMISSION: 10.22.2025 DATE OF DISCHARGE: 10.30.2025 DISPOSITION: home CONDITION: Medically stable CONSULTANTS: Dr.Sarhill Villeda - Hematology FOLLOW UP APPOINTMENTS: Follow up with psychiatry within 2-3 days. Follow up with hematology in 2 weeks with repeat CBC for possible bone marrow biopsy. Follow up with primary care within 1 week for diabetes and medication management. SPECIFIC INSTRUCTIONS: Maintain a regular/diabetic diet and stay well hydrated. Resume normal activity as tolerated Avoid alcohol, illicit drugs, NSAIDs, and activities with bleeding risk due to low platelets. Take all medications exactly as prescribed. Do not stop or change medications without approval. Continue Seroquel 100 mg nightly. Use Haldol 5 mg every 6 hours as needed for agitation, with Benadryl 25 mg as needed. Take Folic acid 1 mg daily and Vitamin B12 1000 mcg daily PROCEDURES: none IMAGING: report attached to summary MICROBIOLOGY: report attached to summary HOME MEDICATIONS: see med rec NEW MEDICATIONS: See medication reconciliation EMERGENCY INSTRUCTIONS: The patient was instructed to present to the nearest Emergency department or call 911 once their symptoms will return or worsen. Home Medications: Reported Medications Bupropion HCl (Bupropion Xl) 150 Mg Tab.er.24h, 300 MG PO DAILY, TAB 10/22/25 Prazosin HCl (Prazosin HCl) 1 Mg Capsule, 1 CAP PO HS for nightmares for 30 Days, #30 CAP 0 Refills 10/22/25 Quetiapine Fumarate (Seroquel) 100 Mg Tablet, 1 TAB PO HS for 30 Days, #30 TAB 0 Refills 10/22/25 Sertraline HCl (Sertraline HCl) 100 Mg Tablet, 2 TAB PO HS for 30 Days, #30 TAB 0 Refills 10/22/25 Time spent arranging discharge: 1-30 minutes ATTESTATION BY PHYSICIAN I have seen and examined the patient. I reviewed the documentation, medical decision making, and treatment plan as noted by the resident provider above. I agree with the findings and plan of care. Ji Singh IV, MD, LAKSHMI MD Oct 30, 2025 16:28
[2025-10-30] MEDS ORDERED: MECO10005 PO (17:59)
[2025-10-30] MEDS ORDERED: HALO5TAB PO (17:59)
[2025-10-30] MEDS ORDERED: DIPH25CA85 PO (17:59)
[2025-10-30] MEDS ORDERED: FOLI0.8C PO (17:59)
[2025-10-31] VITALS: BP 134/59; PULSE 103; RESP 24; TEMP 97.6
[2025-10-31 04:00] VITALS: BP 132/68; PULSE 79; RESP 24; TEMP 97.4
[2025-10-31 04:24] LABS: ASPARTATE AMINOTRANSFERASE 20.0 U/L (10-37); CREATININE 0.5 mg/dL (0.5-1.0); GLOMERULAR FILTR. RATE CALC 112.0 mL/min (>90); GLUCOSE,RANDOM 107.0 mg/dL (70-105); SODIUM SERUM 145.0 mmol/L (136-145); TOTAL PROTEIN, SERUM 5.9 g/dL (6.0-8.3); UREA NITROGEN, BLOOD 6.0 mg/dL (7-18)
[2025-10-31 05:19] VITALS: BP 132/68; PULSE 79; RESP 24; TEMP 97.4
[2025-10-31 05:22] LABS: IMMATURE GRANULOCYTE ABSOLUTE 0.10 K/uL (0-1); NUCLEATED RED BLOOD CELLS 0.0 % (0.0-0.19); PLATELET COUNT (AUTO) 47 K/uL (130-400); RED BLOOD CELL COUNT(AUTO) 3.70 MIL/uL (4.00-5.50); RED CELL DISTRIBUTION WIDTH 13.4 % (11.0-15.5); WHITE BLOOD COUNT (AUTO) 2.6 K/uL (4.8-10.8)
[2025-10-31 07:37] VITALS: BP 145/75; PULSE 95; RESP 17; TEMP 98.1
[2025-10-31 11:23] VITALS: BP 143/78; PULSE 90; RESP 18; TEMP 98.2
[2025-10-31 11:44] VITALS: O2SAT 100
[2025-10-31] MEDS ORDERED: MECO10005 PO (12:32)
[2025-10-31] MEDS ORDERED: FOLI0.8C PO (12:32)
[2025-10-31] MEDS ORDERED: DIPH25CA85 PO (12:32)
--- NOTE | 2025-10-31 22:13 | PN ---
The patient is a 55-year-old female with a history of diabetes mellitus (noncompliant), anxiety, and depression, who presented to the ED for altered mental status. She has not taken her prescribed psychiatric medications (sertraline 200 mg nightly, quetiapine 100 mg nightly, prazosin 1 mg nightly, bupropion XL 300 mg nightly) for the past four days, reportedly due to a desire to avoid "drugs in her body." On my evaluation, the patient was awake but minimally interactive, kept her eyes closed, and repeatedly stated she was thirsty and did not want to be bothered, expressing anglican ideation ("wants the Holy Spirit to purge her"). She was initially being considered for psychiatric admission Peripheral blood smear was evaluated. There was no blasts could be seen. There is not much abnormality except pancytopenia which look like drug-induced. White blood count 3.0 with normal manual differentiation. Hemoglobin 9.8 g/deciliter with platelets 34K. Patient is improved significantly. But the patient actually continued to have pancytopenia with monocytosis pt with suicidal thoughts PHYSICAL EXAM GENERAL APPEARANCE: Awake, eyes closed, minimally interactive, responds only to direct questioning, requests not to be bothered, expresses anglican ideation NEUROLOGICAL: Cranial nerves II-XII grossly intact. Motor is 5/5 in bilateral upper and lower extremities proximal to distal. No sensory deficits. HEENT: Face is symmetric. Pupils are equal and reactive. Extraocular movements are intact. NECK: Supple. No JVD. No thyromegaly. No submental, submandibular, pre- /postauricular, occipital or supraclavicular lymphadenopathy. CHEST: Normal chest expansion. No Telemetry. LUNGS: Absence of any rales, rhonchi or any wheezing. CARDIOVASCULAR: Regular. S1 and S2 normal. No appreciable rubs, murmurs or gallops. ABDOMEN: Soft, nontender, and nondistended. There is no rebound, voluntary guarding, or rigidity. : Deferred. No [place]. EXTREMITIES: Non-edematous and not cyanotic. No clubbing. Good capillary refill. SKIN: lower ext petechiae Psych: Flat affect, withdrawn, anglican preoccupation, minimally responsive Assessment 1. Neutropenia. There is monocytosis 2. Anemia. Hemoglobin level 10.0 g/deciliter 3. Thrombocytopenia. Platelet count 42K. 4. Change mental status 5. Diabetes mellitus 6. viral infection 7. pt with suicidal thoughts Plan 1. Peripheral blood smear continue to show monocytosis is high. This could be telling us that the bone marrow is recovering or it could be just its primary monocytosis. I will ask for flow cytometry and peripheral blood to be done As there was some clumping of the platelet with manual platelet count around 60K. 2. There was hypersegmented neutrophils. This patient to Continue on folic acid 1 mg p.o. daily and vitamin B12 1000 mcg p.o. daily. 3. Peripheral blood smear showed vacuolation inside the white cell consistent with infection. Patient to continue antibiotic treatment as per primary 4. pt with suicidal thoughts. pt is clear to go to in-pt Psychiatric unit. Seems the patient going to be discharged home. This patient discharged home to follow-up with me in 2 weeks Vitals/Labs Vital Signs Date Time Temp Pulse Resp B/P (MAP) Pulse Ox O2 Delivery O2 Flow Rate FiO2 10/31/25 11:44 100 Room Air* 0 21 10/31/25 11:23 98.2 90 18 143/78 Laboratory Tests 10/31/25 03:33 10/31/25 05:10 Medications Current Medications Ondansetron HCl 4 mg ONCE ONCE IVP Last administered on 10/22/25at 06:45; Start 10/22/25 at 06:30; Stop 10/22/25 at 06:31; Status DC Acetaminophen 650 mg Q4H PRN PO Last administered on 10/30/25at 13:02; Start 10/22/25 at 12:30; Stop 10/31/25 at 13:24; Status DC Acetaminophen 650 mg Q6H PRN PO Last administered on 10/30/25at 23:57; Start 10/22/25 at 12:30; Stop 10/31/25 at 13:24; Status DC Ondansetron HCl 4 mg Q6H PRN IVP Last administered on 10/22/25at 16:14; Start 10/22/25 at 12:30; Stop 10/31/25 at 13:24; Status DC Sodium Chloride 1,000 ml @ 75 mls/hr [id number] IV Last administered on 10/30/25at 09:41; Start 10/22/25 at 12:30; Stop 10/31/25 at 13:24; Status DC Ceftriaxone Sodium 1 gm Q24H IVPB Last administered on 10/22/25at 14:59; Start 10/22/25 at 12:30; Stop 10/24/25 at 07:18; Status DC Quetiapine Fumarate 100 mg ONCE ONCE PO Last administered on 10/22/25at 15:17; Start 10/22/25 at 14:00; Stop 10/22/25 at 14:02; Status DC Quetiapine Fumarate 100 mg HS PO Last administered on 10/30/25at 20:13; Start 10/23/25 at 21:00; Stop 10/31/25 at 13:24; Status DC Pharmacy Profile Note ONCE MISC; Start 10/22/25 at 14:00; Stop 10/22/25 at 19:24; Status DC Enoxaparin Sodium 40 mg DAILY SQ Last administered on 10/23/25at 08:29; Start 10/23/25 at 09:00; Stop 10/23/25 at 14:56; Status DC Hydralazine HCl 10 mg Q6H PRN IV; Start 10/22/25 at 17:00; Stop 10/31/25 at 13:24; Status DC Ceftriaxone Sodium 1 gm Q24H IVPB Last administered on 10/31/25at 08:20; Start 10/24/25 at 09:00; Stop 10/31/25 at 13:24; Status DC Potassium Chloride 100 ml @ 100 mls/hr AD PRN IV; Start 10/25/25 at 08:30; Stop 10/31/25 at 13:24; Status DC Potassium Chloride 20 meq AD PRN PO; Start 10/25/25 at 08:30; Stop 10/31/25 at 13:24; Status DC Potassium Chloride 20 meq AD PRN PO Last administered on 10/31/25at 10:16; Start 10/25/25 at 08:30; Stop 10/31/25 at 13:24; Status DC Haloperidol 5 mg Q6H PRN PO Last administered on 10/31/25at 05:03; Start 10/25/25 at 08:30; Stop 10/31/25 at 13:24; Status DC Diphenhydramine HCl 25 mg Q6H PRN PO Last administered on 10/30/25at 20:14; Start 10/25/25 at 08:30; Stop 10/31/25 at 13:24; Status DC Folic Acid 1 mg DAILY PO Last administered on 10/31/25at 08:20; Start 10/26/25 at 09:00; Stop 10/31/25 at 13:24; Status DC Vitamin B Complex 1,000 mcg DAILY PO Last administered on 10/31/25at 08:20; Start 10/26/25 at 09:00; Stop 10/31/25 at 13:24; Status DC Iohexol 75 ml STK-MED ONCE IV; Start 10/26/25 at 17:23; Stop 10/26/25 at 17:23; Status DC KATHERYN BROWN MD Oct 31, 2025 22:13
== END 2025-10-31 13:23 | disposition home or self-care (01) | DRG 809 ==
LOC: EDH 03:41 → EDHIP 03:42 → 4BH 23:03
PROVIDERS: ADMIT Internal Medicine; ATTEND Internal Medicine
DX: D61.818 Other pancytopenia (principal); N39.0 Urinary tract infection, site not specified; R18.8 Other ascites; R45.851 Suicidal ideations; D69.6 Thrombocytopenia, unspecified; E11.9 Type 2 diabetes mellitus without complications; D72.821 Monocytosis (symptomatic); E66.9 Obesity, unspecified; F31.9 Bipolar disorder, unspecified; K76.0 Fatty (change of) liver, not elsewhere classified; B34.9 Viral infection, unspecified; F41.9 Anxiety disorder, unspecified; F43.10 Post-traumatic stress disorder, unspecified; Z91.148 Patient's other noncompliance with medication regimen for other reason; Z68.28 Body mass index [BMI] 28.0-28.9, adult
CPT/HCPCS: 36415; 70450; 74170; 76705; 80048; 80053; 80074; 80076; 80305; 81001; 82140; 82607; 82746; 83010; 83615; 83735; 85025; 85027; 85378; 85610; 86038; 86215; 86235; 86665; 87635; 87804; 87880; 96374; 99285; G0378; G0481; J0696; J1650; J2405; J7030; Q0163; Q9967